=== PATIENT | male | born 1930 | race Caucasian/White ===

== ENCOUNTER 2016-11-28 01:08 | Inpatient (IN) | payer MEDICARE ==
[2016-11-28] MEDS ORDERED: SODIUM CHLORIDE 0.9% 500 ML IV STA (01:22)
[2016-11-28] MEDS ORDERED: SODIUM CHLORIDE 0.9% 1,000 ML IV STA ×2 (01:22)
[2016-11-28] MEDS ORDERED: IV VANCOMYCIN PER PHARMACY 1 EACH MISC MISCELLANE PRN (01:22)
[2016-11-28] MEDS ORDERED: ACETAMINOPHEN IV (For NPO) 1,000 MG in EMPTY BAG 1 BAG IVPB STA (01:22)
[2016-11-28] MEDS ORDERED: KETOROLAC 30 MG/ML 1 ML VIAL IVP STA (01:22)
[2016-11-28] MEDS ORDERED: PIPERACILLIN-TAZOBACTAM 3.375 GM in DEXTROSE/WATER 1 50ML.BAG IVPB STA (01:22)
[2016-11-28] MEDS ORDERED: DILTIAZEM 5 MG/ML 5 ML VIAL IVP STA (01:29)
--- NOTE | 2016-11-28 01:29 | ED ---
General Adult HPI - General Chief complaint: Fever Stated complaint: SOB Time Seen by Provider: 11/28/16 01:16 Source: patient, RN notes reviewed, old records reviewed Mode of arrival: EMS - History of Present Illness Initial comments: This is an 86-year-old male to the ER today from home. Patient's urinary disease not been feeling well. He started not feeling well last night after watching baseball game. Patient states he feels weak with shaking that he cannot stop. Patient has history of heart disease history of A. fib. Patient states he does feel like his heart is racing. No recent nausea vomiting or diarrhea no chest pain or shortness of breath. No bowel pain. No sick contacts or recent travel history. No modifying factors or symptoms. Patient' s main complaint now is the shaking that he has an sweating. - Related Data Home Medications Medication Instructions Recorded Confirmed Aspirin 81 mg PO DAILY 01/03/15 01/03/15 Calcitriol [Rocaltrol] 0.25 mg PO DAILY 01/03/15 01/04/15 Digoxin [Lanoxin] 125 mcg PO QAM 01/03/15 01/04/15 Furosemide [Lasix] 40 mg PO DAILY 01/03/15 01/04/15 Levothyroxine Sodium [Synthroid] 150 mcg PO QAM 01/03/15 01/03/15 Losartan [Cozaar] 50 mg PO QAM 01/03/15 01/03/15 Metoprolol Tartrate [Lopressor] 75 mg PO BID 01/03/15 01/04/15 Multivitamins, Thera [Multivitamin] 1 tab PO DAILY 01/03/15 01/04/15 Omeprazole [PriLOSEC] 20 mg PO QAM 01/03/15 01/03/15 Potassium Chloride [K-Tab ER] 10 meq PO DAILY 01/03/15 01/04/15 Simvastatin [Zocor] 80 mg PO HS 01/03/15 01/04/15 glipiZIDE [Glucotrol] 50 mg PO BID 01/03/15 01/04/15 Allergies Allergy/AdvReac Type Severity Reaction Status Date / Time No Known Allergies Allergy Verified 01/03/15 15:04 Review of Systems ROS Statement: Those systems with pertinent positive or pertinent negative responses have been documented in the HPI. ROS Other: All systems not noted in ROS Statement are negative. Past Medical History Past Medical History: Atrial Fibrillation, Diabetes Mellitus, GERD/Reflux, Hyperlipidemia, Hypertension, Thyroid Disorder Additional Past Medical History / Comment(s): PERIPHERAL EDEMA. History of Any Multi-Drug Resistant Organisms: None Reported Past Surgical History: Cholecystectomy, Coronary Bypass/CABG Past Anesthesia/Blood Transfusion Reactions: No Reported Reaction Past Psychological History: No Psychological Hx Reported Smoking Status: Former smoker Past Alcohol Use History: None Reported Past Drug Use History: None Reported General Exam General appearance: alert, in no apparent distress, anxious Head exam: Present: atraumatic, normocephalic, normal inspection Eye exam: Present: normal appearance, PERRL, EOMI. Absent: scleral icterus, conjunctival injection, periorbital swelling ENT exam: Present: normal exam, mucous membranes moist Neck exam: Present: normal inspection. Absent: tenderness, meningismus, lymphadenopathy Respiratory exam: Present: normal lung sounds bilaterally. Absent: respiratory distress, wheezes, rales, rhonchi, stridor Cardiovascular Exam: Present: tachycardia, irregular rhythm, normal heart sounds. Absent: systolic murmur, diastolic murmur, rubs, gallop, clicks GI/Abdominal exam: Present: soft, normal bowel sounds. Absent: distended, tenderness, guarding, rebound, rigid Extremities exam: Present: normal inspection, full ROM, normal capillary refill. Absent: tenderness, pedal edema, joint swelling, calf tenderness Back exam: Present: normal inspection Neurological exam: Present: alert, oriented X3, CN II-XII intact Psychiatric exam: Present: normal affect, normal mood Skin exam: Present: warm, dry, intact, normal color. Absent: rash Course Vital Signs 11/28/16 01:22 Temperature 101.9 F H Pulse Rate 115 H Respiratory 18 Rate Blood Pressure 120/85 O2 Sat by Pulse 97 Oximetry - Reevaluation(s) Reevaluation #1: 11/28/16 02:35 A. fib with RVR is improved with Cardizem bolus Reevaluation #2: 11/28/16 02:35 Patient does patient does feel better with symptomatic management EKG Findings - EKG Comments: EKG Findings:: EKG shows A. fib with RVR rate 112, QRS 96, QTC 444 Medical Decision Making - Medical Decision Making 86 male to the ER for evaluation regarding not feeling well, fever, rule out bacteremia, no evidence of pneumonia or UTI, no rash, at this time patient will be admitted for cardiology evaluation regarding her elevated troponin, A. fib with RVR, patient also with elevated temperature, rule out bacteremia - Lab Data Result diagrams: 11/28/16 01:35 11/28/16 01:35 Lab Results 11/28/16 11/28/16 11/28/16 Range/Units 01:35 01:35 01:35 WBC 10.7 H (3.8-10.6) k/uL RBC 2.90 L (4.30-5.90) m/uL Hgb 9.0 L (13.0-17.5) gm/dL Hct 28.7 L (39.0-53.0) % MCV 99.0 (80.0-100.0) fL MCH 31.0 (25.0-35.0) pg MCHC 31.3 (31.0-37.0) g/dL RDW 14.9 (11.5-15.5) % Plt Count 181 (150-450) k/uL Neutrophils % 89 % Lymphocytes % 5 % Monocytes % 5 % Eosinophils % 1 % Basophils % 0 % Neutrophils # 9.5 H (1.3-7.7) k/uL Lymphocytes # 0.5 L (1.0-4.8) k/uL Monocytes # 0.5 (0-1.0) k/uL Eosinophils # 0.1 (0-0.7) k/uL Basophils # 0.0 (0-0.2) k/uL Hypochromasia Slight Macrocytosis Slight PT (9.0-12.0) sec INR (<1.2) APTT (22.0-30.0) sec Sodium 140 (137-145) mmol/L Potassium 4.2 (3.5-5.1) mmol/L Chloride 103 (98-107) mmol/L Carbon Dioxide 25 (22-30) mmol/L Anion Gap 12 mmol/L BUN 26 H (9-20) mg/dL Creatinine 1.70 H (0.66-1.25) mg/dL Est GFR (MDRD) Af Amer 46 (>60 ml/min/1.73 sqM) Est GFR (MDRD) Non-Af 38 (>60 ml/min/1.73 sqM) Glucose 141 H (74-99) mg/dL Plasma Lactic Acid Nic (0.7-2.0) mmol/L Calcium 8.8 (8.4-10.2) mg/dL Phosphorus 3.5 (2.5-4.5) mg/dL Magnesium 2.0 (1.6-2.3) mg/dL Total Bilirubin 0.3 (0.2-1.3) mg/dL AST 32 (17-59) U/L ALT 38 (21-72) U/L Alkaline Phosphatase 79 (38-126) U/L Total Creatine Kinase 72 (55-170) U/L CK-MB (CK-2) 1.4 (0.0-2.4) ng/mL CK-MB (CK-2) Rel Index 1.9 Troponin I 0.038 H* (0.000-0.034) ng/mL Total Protein 6.3 (6.3-8.2) g/dL Albumin 3.6 (3.5-5.0) g/dL Urine Color Urine Appearance (Clear) Urine pH (5.0-8.0) Ur Specific [place] (1.001-1.035) Urine Protein (Negative) Urine Glucose (UA) (Negative) Urine Ketones (Negative) Urine Blood (Negative) Urine Nitrite (Negative) Urine Bilirubin (Negative) Urine Urobilinogen (<2.0) mg/dL Ur Leukocyte Esterase (Negative) 11/28/16 11/28/16 11/28/16 Range/Units 01:35 01:35 01:35 WBC (3.8-10.6) k/uL RBC (4.30-5.90) m/uL Hgb (13.0-17.5) gm/dL Hct (39.0-53.0) % MCV (80.0-100.0) fL MCH (25.0-35.0) pg MCHC (31.0-37.0) g/dL RDW (11.5-15.5) % Plt Count (150-450) k/uL Neutrophils % % Lymphocytes % % Monocytes % % Eosinophils % % Basophils % % Neutrophils # (1.3-7.7) k/uL Lymphocytes # (1.0-4.8) k/uL Monocytes # (0-1.0) k/uL Eosinophils # (0-0.7) k/uL Basophils # (0-0.2) k/uL Hypochromasia Macrocytosis PT 11.0 (9.0-12.0) sec INR 1.1 (<1.2) APTT 22.1 (22.0-30.0) sec Sodium (137-145) mmol/L Potassium (3.5-5.1) mmol/L Chloride (98-107) mmol/L Carbon Dioxide (22-30) mmol/L Anion Gap mmol/L BUN (9-20) mg/dL Creatinine (0.66-1.25) mg/dL Est GFR (MDRD) Af Amer (>60 ml/min/1.73 sqM) Est GFR (MDRD) Non-Af (>60 ml/min/1.73 sqM) Glucose (74-99) mg/dL Plasma Lactic Acid Nic 1.8 (0.7-2.0) mmol/L Calcium (8.4-10.2) mg/dL Phosphorus (2.5-4.5) mg/dL Magnesium (1.6-2.3) mg/dL Total Bilirubin (0.2-1.3) mg/dL AST (17-59) U/L ALT (21-72) U/L Alkaline Phosphatase (38-126) U/L Total Creatine Kinase (55-170) U/L CK-MB (CK-2) (0.0-2.4) ng/mL CK-MB (CK-2) Rel Index Troponin I (0.000-0.034) ng/mL Total Protein (6.3-8.2) g/dL Albumin (3.5-5.0) g/dL Urine Color Yellow Urine Appearance Clear (Clear) Urine pH 5.0 (5.0-8.0) Ur Specific [place] 1.014 (1.001-1.035) Urine Protein Trace H (Negative) Urine Glucose (UA) Negative (Negative) Urine Ketones Negative (Negative) Urine Blood Negative (Negative) Urine Nitrite Negative (Negative) Urine Bilirubin Negative (Negative) Urine Urobilinogen <2.0 (<2.0) mg/dL Ur Leukocyte Esterase Negative (Negative) - Radiology Data Radiology results: report reviewed (Chest x-ray negative for acute disease), image reviewed Disposition Clinical Impression: Fever, Atrial fibrillation with RVR, Weakness, Elevated troponin Disposition: ADMITTED IP TO THIS HOSP Condition: Good Referrals: Adrianna Grubbs MD [Primary Care Provider] - 1-2 days
[2016-11-28 01:48] LABS: Basophils % (A) 0 %; CH 30.8; CHCM 31.2; Eosinophils # (A) 0.1 k/uL (0-0.7); Eosinophils % (A) 1 %; HCT 28.7 % (39.0-53.0); HDW 2.72; Hypochromasia Slight; Luc % (Auto) 1; Lymphocytes # (A) 0.5 k/uL (1.0-4.8); Lymphocytes % (A) 5 %; MCHC 31.3 g/dL (31.0-37.0); Macrocytosis Slight; Mean Platelet Volume 6.9; Monocytes # (A) 0.5 k/uL (0-1.0); Monocytes % (A) 5 %; Neutrophils # (A) 9.5 k/uL (1.3-7.7); Neutrophils % (A) 89 %; RDW 14.9 % (11.5-15.5); WBC 10.7 k/uL (3.8-10.6); WBC (Perox) 10.76
[2016-11-28 01:49] LABS: Appearance,Urine Clear (Clear); Bilirubin,Urine Negative (Negative); Glucose,Urine (UA) Negative (Negative); Ketones,Urine Negative (Negative); Leukocyte Esterase,Urine Negative (Negative); Nitrite,Urine Negative (Negative); Protein,Urine Trace (Negative); Specific Gravity,Urine 1.014 (1.001-1.035); UA Billing (MACRO vs. MICRO) CHEM; Urobilinogen,Urine <2.0 mg/dL (<2.0)
[2016-11-28 01:59] LABS: Calcium 8.8 mg/dL (8.4-10.2); Phosphorous 3.5 mg/dL (2.5-4.5); Potassium 4.2 mmol/L (3.5-5.1); Total Bilirubin 0.3 mg/dL (0.2-1.3); Total Protein 6.3 g/dL (6.3-8.2)
[2016-11-28 02:03] LABS: INR 1.1 (<1.2)
[2016-11-28 02:07] LABS: Partial Thromboplastin Time 22.1 sec (22.0-30.0)
--- NOTE | 2016-11-28 02:14 | XR ---
EXAM: XR Chest, 2 Views CLINICAL HISTORY: Reason: Weakness TECHNIQUE: Frontal and lateral views of the chest. COMPARISON: No relevant prior studies available. FINDINGS: Lungs: Elevated hemidiaphragm. The lungs are hypoventilatory. No focal consolidation. Pleural space: Unremarkable. No pneumothorax. Heart: Mild enlargement of the cardiomediastinal silhouette. Mediastinum: Postoperative mediastinum. Bones/joints: No acute osseous abnormality. Tubes, lines and devices: Telemetry leads overlie the patient. IMPRESSION: No acute cardiopulmonary process.
[2016-11-28 02:24] LABS: Creatine Kinase MB 1.4 ng/mL (0.0-2.4)
[2016-11-28 02:25] LABS: Troponin I 0.038 ng/mL (0.000-0.034)
[2016-11-28] MEDS ORDERED: ASPIRIN 81 MG CHEW PO STA (02:31)
[2016-11-28] MEDS ORDERED: LEVOFLOXACIN 750MG-D5W PMX 750 MG in DEXTROSE/WATER 1 150ML.BAG IVPB STA (02:31)
[2016-11-28] MEDS ORDERED: NITROGLYCERIN SL TABS 0.4 MG TAB SUBLINGUAL PRN (02:31)
[2016-11-28] MEDS ORDERED: IBUPROFEN 600 MG TAB PO PRN (02:33)
[2016-11-28] MEDS ORDERED: ACETAMINOPHEN TAB 500 MG TAB PO PRN (02:33)
[2016-11-28] MEDS: ASPIRIN 325 MG TAB PO SCH ×2 (08:30→08:31)
[2016-11-28 08:53] LABS: Creatine Kinase MB 1.1 ng/mL (0.0-2.4)
[2016-11-28 08:59] LABS: Troponin I 0.051 ng/mL (0.000-0.034)
--- NOTE | 2016-11-28 09:40 | P.CRDCN ---
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 The patient was experiencing shaking movement in his upper extremities. He did not have any symptoms of chest pain or chest discomfort. He did not have any symptoms of shortness of breath. No dizziness or lightheadedness. No heart racing or fluttering. No syncope. The patient was diagnosed with UTI and he was started on antibiotic. Hemodynamically, he is in atrial fibrillation with slightly uncontrolled heart rate with an average heart rate around 100 beats per minutes. He is on metoprolol at 75 mg by mouth twice a day at home. He is not on any anticoagulation but he is on antiplatelet. The EKG showed A. fib without any significant ST or T-wave abnormalities. The cardiac enzymes were checked and came in to be slightly abnormal. Past Medical History Past Medical History: Atrial Fibrillation, Diabetes Mellitus, GERD/Reflux, Hyperlipidemia, Hypertension, Thyroid Disorder Additional Past Medical History / Comment(s): PERIPHERAL EDEMA. History of Any Multi-Drug Resistant Organisms: None Reported Past Surgical History: Cholecystectomy, Coronary Bypass/CABG Past Anesthesia/Blood Transfusion Reactions: No Reported Reaction Past Psychological History: No Psychological Hx Reported Smoking Status: Former smoker Past Alcohol Use History: None Reported Past Drug Use History: None Reported Medications and Allergies Home Medications Medication Instructions Recorded Confirmed Type Aspirin 81 mg PO DAILY 01/03/15 11/28/16 History Calcitriol [Rocaltrol] 0.25 mg PO DAILY 01/03/15 11/28/16 History Digoxin [Lanoxin] 125 mcg PO QAM 01/03/15 11/28/16 History Furosemide [Lasix] 80 mg PO DAILY 01/03/15 11/28/16 History Levothyroxine Sodium [Synthroid] 150 mcg PO QAM 01/03/15 11/28/16 History Losartan [Cozaar] 50 mg PO QAM 01/03/15 11/28/16 History Metoprolol Tartrate [Lopressor] 75 mg PO BID 01/03/15 11/28/16 History Multivitamins, Thera [Multivitamin] 1 tab PO DAILY 01/03/15 11/28/16 History Omeprazole [PriLOSEC] 20 mg PO DAILY 01/03/15 11/28/16 History Potassium Chloride [K-Tab ER] 10 meq PO BID 01/03/15 11/28/16 History Simvastatin [Zocor] 40 mg PO HS 01/03/15 11/28/16 History glipiZIDE [Glucotrol] 5 mg PO AC-LUNCH 01/03/15 11/28/16 History Cholecalciferol [Vitamin D3] 1,000 unit PO DAILY 11/28/16 11/28/16 History Cyanocobalamin (Vitamin B-12) 1,000 mcg PO DAILY 11/28/16 11/28/16 History [Vitamin B-12] Ferrous Sulfate [Iron] 325 mg PO DAILY 11/28/16 11/28/16 History Fexofenadine HCl [Heidi Allergy] 180 mg PO DAILY PRN 11/28/16 11/28/16 History Allergies Allergy/AdvReac Type Severity Reaction Status Date / Time No Known Allergies Allergy Verified 11/28/16 07:35 Physical Exam Vitals: Vital Signs Temp Pulse Resp BP Pulse Ox 11/28/16 08:00 99 18 125/74 97 11/28/16 06:17 98.8 F 100 18 112/60 98 11/28/16 04:39 98.7 F 93 18 112/57 96 11/28/16 03:43 100.8 F H 97 18 110/57 97 11/28/16 01:22 101.9 F H 115 H 18 120/85 97 Intake and Output 11/27/16 11/28/16 11/28/16 22:59 06:59 14:59 Other: Weight 107.501 kg - Constitutional General appearance: no acute distress - Respiratory Respiratory: bilateral: CTA - Cardiovascular Rhythm: irregularly irregular Heart sounds: normal: S1, S2 Results 11/28/16 01:35 11/28/16 01:35 Cardiac Enzymes 11/28/16 11/28/16 11/28/16 Range/Units 01:35 01:35 07:20 AST 32 (17-59) U/L CK-MB (CK-2) 1.4 1.1 (0.0-2.4) ng/mL Troponin I 0.038 H* 0.051 H* (0.000-0.034) ng/mL Coagulation 11/28/16 Range/Units 01:35 PT 11.0 (9.0-12.0) sec APTT 22.1 (22.0-30.0) sec CBC 11/28/16 Range/Units 01:35 WBC 10.7 H (3.8-10.6) k/uL RBC 2.90 L (4.30-5.90) m/uL Hgb 9.0 L (13.0-17.5) gm/dL Hct 28.7 L (39.0-53.0) % Plt Count 181 (150-450) k/uL Comprehensive Metabolic Panel 11/28/16 Range/Units 01:35 Sodium 140 (137-145) mmol/L Potassium 4.2 (3.5-5.1) mmol/L Chloride 103 (98-107) mmol/L Carbon Dioxide 25 (22-30) mmol/L BUN 26 H (9-20) mg/dL Creatinine 1.70 H (0.66-1.25) mg/dL Glucose 141 H (74-99) mg/dL Calcium 8.8 (8.4-10.2) mg/dL AST 32 (17-59) U/L ALT 38 (21-72) U/L Alkaline Phosphatase 79 (38-126) U/L Total Protein 6.3 (6.3-8.2) g/dL Albumin 3.6 (3.5-5.0) g/dL Current Medications Generic Name Dose Route Start Last Admin Trade Name Freq PRN Reason Stop Dose Admin Acetaminophen 500 mg 11/28/16 02:33 Tylenol Tab PO Q6HR PRN Fever and/ or Pain Aspirin 325 mg 11/29/16 09:00 11/28/16 08:31 Aspirin PO 325 mg DAILY SCARLET Administration Sodium Chloride 1,000 mls @ 100 mls/hr 11/28/16 01:22 11/28/16 01:43 Saline 0.9% IV 11/28/16 11:21 100 mls/hr .Q10H STA Administration Levofloxacin 750 mg/ IV 150 mls @ 100 mls/hr 11/29/16 09:00 11/28/16 08:15 Solution IVPB 100 mls/hr DAILY SCARLET Administration Ibuprofen 600 mg 11/28/16 02:33 Motrin PO TID PRN Fever - Alternate with Tylenol Nitroglycerin 0.4 mg 11/28/16 02:31 Nitrostat SUBLINGUAL Q5M PRN Chest Pain Intake and Output 11/27/16 11/28/16 11/28/16 22:59 06:59 14:59 Other: Weight 107.501 kg 11/28/16 01:35 11/28/16 01:35 Assessment and Plan Plan: This is a pleasant 86-year-old gentleman with known CAD, chronic A. fib, hypertension, and dyslipidemia presented to the hospital because he was not feeling well and he was diagnosed with UTI and was started on antibiotic. Currently the patient is in A. fib with a slightly uncontrolled heart rate which is likely secondary to the UTI. We will continue the current medical treatment and resume the metoprolol as well as digoxin for heart rate control. I will obtain an echocardiogram was Doppler and if he has known valvular abnormalities I will consider starting the patient on one of the new or anticoagulation agents. The patient is an 86-year- old but he has a good functional capacity and when I talked to him he stated that he has relatively speaking steady gait and he does not fall frequently. We will continue following up with the patient and thank you for allowing us participate in his care
[2016-11-28] MEDS: CALCITRIOL 0.25 MCG CAP PO SCH (10:59)
[2016-11-28] MEDS: DIGOXIN 125 MCG TAB PO SCH (10:59)
[2016-11-28] MEDS: FUROSEMIDE 80 MG TAB PO SCH (10:59)
[2016-11-28] MEDS: CYANOCOBALAMIN 500 MCG TAB PO SCH (11:00)
[2016-11-28] MEDS: glipiZIDE 5 MG TAB PO SCH (11:00)
[2016-11-28] MEDS: CHOLECALCIFEROL 1,000 UNIT TAB PO SCH (11:00)
[2016-11-28] MEDS: LOSARTAN 50 MG TAB PO SCH (11:00)
[2016-11-28] MEDS: POTASSIUM CHLORIDE ER 10 MEQ TAB.ER.PRT PO SCH ×2 (11:00→21:16)
[2016-11-28] MEDS: METOPROLOL TARTRATE 25 MG TAB PO SCH ×2 (11:00→21:17)
[2016-11-28] MEDS: FERROUS SULFATE 325 MG TAB PO SCH (11:00)
[2016-11-28] MEDS ORDERED: Potassium Replacement Protocol 1 EACH MISC MISCELLANE PRN (12:26)
[2016-11-28] MEDS ORDERED: Magnesium Replacement Protocol 1 EACH MISC MISCELLANE PRN (12:26)
--- NOTE | 2016-11-28 13:02 | P.HPIM ---
History of Present Illness H&P Date: 11/28/16 Chief Complaint: not feeling well this is a 86-year-old gentleman with past medical history noted below who presented to the emergency roomwith generalized fatigue and not feeling well. Patient said that his symptoms started 2 days ago and last night he started having chills and was feeling cold. Patient denies any significant cough or shortness of breath. No dysuria or urinary frequency more than his usual which he attributes to Lasix use. He is otherwise having normal bowel movements. No diarrhea. He admits to have some runny nose for the past couple of days. He was evaluated in the emergency room was found to have a low-grade fever of 100.8. He was also found to be in atrial fibrillation with a heart rate up to the 100. He was hemodynamically stable. He was noted to have slightly elevated troponin and is currently admitted to subjective care. 12 leads EKG showed no acute ischemic changes. Patient denies any chest pain. Review of Systems Review of system: 14 points review of systems were obtained and were negative except to what were mentioned in the HPI. 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 History of Any Multi-Drug Resistant Organisms: None Reported Past Surgical History: Cholecystectomy, Coronary Bypass/CABG Additional Past Surgical History / Comment(s): PTCA, 2004 CABG 5 VESSEL, EGDs/ COLONOSCOPIES, BILATERAL CATARACT REMOVAL WITH LENS, R KNEE ARTHROSCOPY, L VAT/ DECORTICATION, THYROIDECTOMY, SKIN GRAFT TO L HAND R/T NONHEALING WOUND, SKIN CANCER REMOVAL FROM EARS, UNDESCENDED TESTICLE SX. Past Anesthesia/Blood Transfusion Reactions: No Reported Reaction Additional Past Anesthesia/Blood Transfusion Reaction / Comment(s): PT HAS RECEIVED BLOOD IN PAST WITHOUT REACTION. Smoking Status: Former smoker - Past Family History Father Family Medical History: No Reported History Additional Family Medical History / Comment(s): FATHER AT THE AGE OF 102YRS. Mother Additional Family Medical History / Comment(s): MOTHER HAD HEART PROBLEMS. SHE AT THE AGE OF 95YRS. Medications and Allergies Home Medications Medication Instructions Recorded Confirmed Type Aspirin 81 mg PO DAILY 01/03/15 11/28/16 History Calcitriol [Rocaltrol] 0.25 mg PO DAILY 01/03/15 11/28/16 History Digoxin [Lanoxin] 125 mcg PO QAM 01/03/15 11/28/16 History Furosemide [Lasix] 80 mg PO DAILY 01/03/15 11/28/16 History Levothyroxine Sodium [Synthroid] 150 mcg PO QAM 01/03/15 11/28/16 History Losartan [Cozaar] 50 mg PO QAM 01/03/15 11/28/16 History Metoprolol Tartrate [Lopressor] 75 mg PO BID 01/03/15 11/28/16 History Multivitamins, Thera [Multivitamin] 1 tab PO DAILY 01/03/15 11/28/16 History Omeprazole [PriLOSEC] 20 mg PO DAILY 01/03/15 11/28/16 History Potassium Chloride [K-Tab ER] 10 meq PO BID 01/03/15 11/28/16 History Simvastatin [Zocor] 40 mg PO HS 01/03/15 11/28/16 History glipiZIDE [Glucotrol] 5 mg PO AC-LUNCH 01/03/15 11/28/16 History Cholecalciferol [Vitamin D3] 1,000 unit PO DAILY 11/28/16 11/28/16 History Cyanocobalamin (Vitamin B-12) 1,000 mcg PO DAILY 11/28/16 11/28/16 History [Vitamin B-12] Ferrous Sulfate [Iron] 325 mg PO DAILY 11/28/16 11/28/16 History Fexofenadine HCl [Heidi Allergy] 180 mg PO DAILY PRN 11/28/16 11/28/16 History Allergies Allergy/AdvReac Type Severity Reaction Status Date / Time No Known Allergies Allergy Verified 11/28/16 07:35 Physical Exam Vitals: Vital Signs Temp Pulse Resp BP Pulse Ox 11/28/16 12:33 97.5 F L 11/28/16 12:00 74 20 103/62 97 11/28/16 08:00 99 18 125/74 97 11/28/16 06:17 98.8 F 100 18 112/60 98 08/09/17 04:39 98.7 F 93 18 112/57 96 11/28/16 03:43 100.8 F H 97 18 110/57 97 11/28/16 01:22 101.9 F H 115 H 18 120/85 97 Intake and Output 11/27/16 11/28/16 11/28/16 22:59 06:59 14:59 Other: Weight 107.501 kg General: The patient is awake and alert, in no distress Eye: there is normal conjunctiva bilaterally. Neck: The neck is supple, there is no JVD. Cardiovascular: Normal S1-S2, no S3-S4, no murmurs. Respiratory: Lungs clear to auscultation bilaterally Gastrointestinal: Abdomen is soft, nontender Musculoskeletal: There is +1-2 pedal edema. Neurological:. Speech is normal. Skin: Skin is warm and dry Results CBC & Chem 7: 11/28/16 01:35 11/28/16 01:35 Labs: Abnormal Lab Results - Last 24 Hours (Table) 11/28/16 11/28/16 11/28/16 Range/Units 01:35 01:35 01:35 WBC 10.7 H (3.8-10.6) k/uL RBC 2.90 L (4.30-5.90) m/uL Hgb 9.0 L (13.0-17.5) gm/dL Hct 28.7 L (39.0-53.0) % Neutrophils # 9.5 H (1.3-7.7) k/uL Lymphocytes # 0.5 L (1.0-4.8) k/uL BUN 26 H (9-20) mg/dL Creatinine 1.70 H (0.66-1.25) mg/dL Glucose 141 H (74-99) mg/dL Troponin I 0.038 H* (0.000-0.034) ng/mL Urine Protein (Negative) 11/28/16 11/28/16 Range/Units 01:35 07:20 WBC (3.8-10.6) k/uL RBC (4.30-5.90) m/uL Hgb (13.0-17.5) gm/dL Hct (39.0-53.0) % Neutrophils # (1.3-7.7) k/uL Lymphocytes # (1.0-4.8) k/uL BUN (9-20) mg/dL Creatinine (0.66-1.25) mg/dL Glucose (74-99) mg/dL Troponin I 0.051 H* (0.000-0.034) ng/mL Urine Protein Trace H (Negative) Microbiology - Last 24 Hours (Table) 11/28/16 01:35 Urine Culture - Preliminary Urine,Clean Catch Thrombosis Risk Factor Assmnt - Choose All That Apply Any of the Below Risk Factors Present?: Yes Each Factor Represents 1 point: Obesity (BMI >25) Other Risk Factors: Yes Each Risk Factor Represents 3 Points: Age 75 years or older Other congenital or acquired thrombophilia - If yes, enter type in comment: No Thrombosis Risk Factor Assessment Total Risk Factor Score: 4 Thrombosis Risk Factor Assessment Level: Moderate Risk Assessment and Plan Plan: 1. Acute viral upper respiratory tract infection 2. Sepsis on presentation: May be attributed to #1. There is no evidence of UTI on urinalysis. Chest x-ray with no evidence of pneumonia. No other source of infection identified. We'll continue to monitor closely. Patient received IV fluid hydration overnight. We'll discontinue and encourage oral hydration. 3. Atrial fibrillation with heart rate not well controlled on presentation up to 100 4. History of coronary artery disease with history of CABG in 2003 5. Essential hypertension: Blood pressure well-controlled 6. Mixed hyperlipidemia Today, I reviewed his medication list on lansoprazole. Continue current regimen. Continue IV antibiotic for now awaiting blood cultures. Monitor temperature closely. Patient was also seen by cardiology, appreciate recommendations. Plan to obtain echocardiogram of the heart. Also discussing options for anticoagulation.
[2016-11-28 14:37] LABS: Troponin I 0.046 ng/mL (0.000-0.034)
[2016-11-28] MEDS: ATORVASTATIN 40 MG TAB PO SCH (21:17)
[2016-11-29 05:55] LABS: Basophils % (A) 0 %; CH 30.3; CHCM 30.4; Eosinophils # (A) 0.1 k/uL (0-0.7); Eosinophils % (A) 2 %; HCT 25.6 % (39.0-53.0); HDW 2.79; HGB 7.7 gm/dL (13.0-17.5); Hypochromasia Marked; Luc # (Auto) 0.19; Luc % (Auto) 3; Lymphocytes % (A) 17 %; MCH 30.2 pg (25.0-35.0); MCHC 30.2 g/dL (31.0-37.0); MCV 100.1 fL (80.0-100.0); Macrocytosis Slight; Mean Platelet Volume 6.8; Monocytes # (A) 0.3 k/uL (0-1.0); Monocytes % (A) 5 %; Neutrophils # (A) 4.3 k/uL (1.3-7.7); Neutrophils % (A) 72 %; RBC 2.56 m/uL (4.30-5.90); RDW 14.6 % (11.5-15.5); WBC 5.9 k/uL (3.8-10.6); WBC (Perox) 6.15
[2016-11-29 05:59] LABS: Calcium 8.5 mg/dL (8.4-10.2); Magnesium 2.1 mg/dL (1.6-2.3); Potassium 3.9 mmol/L (3.5-5.1)
[2016-11-29] MEDS: LEVOTHYROXINE 75 MCG TAB PO SCH (06:16)
--- NOTE | 2016-11-29 07:46 | ECHOF ---
Referral Reason: MEASUREMENTS -------- HEIGHT: 182.9 cm WEIGHT: 107.5 kg BP: 125/74 RVIDd: 3.6 cm (< 3.3) IVSd: 1.5 cm (0.6 - 1.1) LVIDd: 5.6 cm (3.9 - 5.3) LVPWd: 1.5 cm (0.6 - 1.1) IVSs: 1.7 cm LVIDs: 4.2 cm LVPWs: 2.2 cm LA Diam: 4.4 cm (2.7 - 3.8) LAESV Index (A-L): 64.58 ml/m Ao Diam: 3.6 cm (2.0 - 3.7) AV Cusp: 1.9 cm (1.5 - 2.6) MV EXCURSION: 18.807 mm (> 18.000) MV EF SLOPE: 85 mm/s (70 - 150) EPSS: 1.1 cm AV maxP.16 mmHg AV meanP.09 mmHg RAP: 5.00 mmHg RVSP: 34.87 mmHg FINDINGS -------- Atrial fibrillation. This was a technically good study. The left ventricular size is normal. There is moderate concentric left ventricular hypertrophy. Overall left ventricular systolic function is mild-moderately impaired with, an EF between 40 - 45 %. The right ventricle is mildly enlarged. LA is severely dilated >40 ml/m2 The right atrium is normal in size. There is mild to moderate aortic valve sclerosis. There is mild aortic stenosis present. Peak/mean gradient across the Aortic Valve is 19.16mmHg / 10.09mmHg. The mitral valve leaflets are mildly thickened. Mild mitral annular calcification present. There is trace to mild mitral regurgitation. Mild tricuspid regurgitation present. There is mild pulmonary hypertension. The right ventricular systolic pressure, as measured by Doppler, is 34.87mmHg. Trace/mild (physiologic) pulmonic regurgitation. The aortic root size is normal. The inferior vena cava is mildly dilated. There is no pericardial effusion. CONCLUSIONS -------- 1. Atrial fibrillation. 2. There is mild aortic stenosis present. 3. Peak/mean gradient across the Aortic Valve is 19.16mmHg / 10.09mmHg. 4. The mitral valve leaflets are mildly thickened. 5. Mild mitral annular calcification present. 6. There is trace to mild mitral regurgitation. 7. Mild tricuspid regurgitation present. 8. There is mild pulmonary hypertension. 9. The right ventricular systolic pressure, as measured by Doppler, is 34.87mmHg. 10. Trace/mild (physiologic) pulmonic regurgitation. 11. The aortic root size is normal. 12. This was a technically good study. 13. The inferior vena cava is mildly dilated. 14. There is no pericardial effusion. 15. The left ventricular size is normal. 16. There is moderate concentric left ventricular hypertrophy. 17. Overall left ventricular systolic function is mild-moderately impaired with, an EF between 40 - 45 %. 18. The right ventricle is mildly enlarged. 19. LA is severely dilated >40 ml/m2 20. The right atrium is normal in size. 21. There is mild to moderate aortic valve sclerosis. ROCK BREAKER: Cesia Mena RDCS
[2016-11-29] MEDS: FUROSEMIDE 80 MG TAB PO SCH (08:33)
[2016-11-29] MEDS: METOPROLOL TARTRATE 25 MG TAB PO SCH ×2 (08:33→21:31)
[2016-11-29] MEDS: DIGOXIN 125 MCG TAB PO SCH (08:33)
[2016-11-29] MEDS: LOSARTAN 50 MG TAB PO SCH (08:34)
[2016-11-29] MEDS: CALCITRIOL 0.25 MCG CAP PO SCH (08:34)
[2016-11-29] MEDS: CHOLECALCIFEROL 1,000 UNIT TAB PO SCH (08:36)
[2016-11-29] MEDS: CYANOCOBALAMIN 500 MCG TAB PO SCH (08:36)
[2016-11-29] MEDS: FERROUS SULFATE 325 MG TAB PO SCH (08:37)
[2016-11-29] MEDS: POTASSIUM CHLORIDE ER 10 MEQ TAB.ER.PRT PO SCH ×2 (08:40→21:31)
[2016-11-29] MEDS ORDERED: LEVOFLOXACIN 750MG-D5W PMX 750 MG in DEXTROSE/WATER 1 150ML.BAG IVPB SCH (09:00)
[2016-11-29] MEDS: glipiZIDE 5 MG TAB PO SCH (11:09)
[2016-11-29 12:31] LABS: Hemoglobin A1C 5.8 % (4.2-6.1)
--- NOTE | 2016-11-29 13:58 | P.PN ---
Subjective Principal diagnosis: Moisés molina This is a pleasant 86-year-old gentleman with known history of coronary artery disease and prior bypass surgery, chronic persistent atrial fibrillation, hypertension, hyperlipidemia, who presented to the hospital in general symptoms of not feeling well. He is currently being treated for a UTI with antibiotics. Cardiology consultation was initially requested because of atrial fibrillation with rapid ventricular response. Patient continues to be in atrial fibrillation today, his heart rate is in the 80s. He is currently on IV heparin. Echocardiogram with Doppler study was performed which revealed an ejection fraction of 40-45%. Patient states that he used to take Coumadin in the past, significant stomach issues with it and it was discontinued. He has not had any workup in the form of EGD or colonoscopy in greater than 5 years. Blood pressure this morning 128/70, heart rate in the 80s. Hemoglobin 7.7 today , down from 9.0, potassium 3.9, BUN 25, creatinine 1.5. Troponins 0.038, 0.051 , 0.046. TSH 1.91. Objective - Vital Signs Vital signs: Vital Signs Temp 96.9 F L 11/29/16 12:00 Pulse 80 11/29/16 12:00 Resp 16 11/29/16 12:00 BP 129/72 11/29/16 12:00 Pulse Ox 94 L 11/29/16 12:00 Intake & Output 11/28/16 11/29/16 11/29/16 18:59 06:59 18:59 Intake Total 336 200 200 Output Total 900 350 Balance 336 -700 -150 Weight 103.6 kg Intake: Intake, IV Titration 100 Amount Sodium Chloride 0.9% 1, 100 000 ml @ 100 mls/hr IV . Q10H STA Rx#:[id number] Oral 236 200 200 Output: Urine 900 350 Other: Voiding Method Urinal # Voids 1 - Exam PHYSICAL EXAMINATION: HEENT: Head is atraumatic, normocephalic. Pupils equal, round. Neck is supple. There is no elevated jugular venous pressure. HEART EXAMINATION: Heart S1 and S2 irregularly irregular CHEST EXAMINATION: Lungs are clear to auscultation and precussion. No chest wall tenderness is noted on palpation or with deep breathing. ABDOMEN: Soft, nontender. Bowel sounds are heard. No organomegaly noted. EXTREMITIES: 2+ peripheral pulses with no evidence of peripheral edema and no calf tenderness noted. NEUROLOGIC patient is awake, alert and oriented -3. . - Labs CBC & Chem 7: 11/29/16 05:22 11/29/16 05:22 Labs: Abnormal Lab Results - Last 24 Hours (Table) 11/28/16 11/29/16 11/29/16 Range/Units 13:48 05:22 05:22 RBC 2.56 L (4.30-5.90) m/uL Hgb 7.7 L (13.0-17.5) gm/dL Hct 25.6 L (39.0-53.0) % MCV 100.1 H (80.0-100.0) fL MCHC 30.2 L (31.0-37.0) g/dL Plt Count 130 L (150-450) k/uL BUN 25 H (9-20) mg/dL Creatinine 1.50 H (0.66-1.25) mg/dL Glucose 116 H (74-99) mg/dL Troponin I 0.046 H* (0.000-0.034) ng/mL HDL Cholesterol 27 L (40-60) mg/dL Microbiology - Last 24 Hours (Table) 11/28/16 01:35 Urine Culture - Final Urine,Clean Catch 11/28/16 01:35 Blood Culture - Preliminary Blood No Growth after 24 hours Assessment and Plan (1) UTI (urinary tract infection) Status: Acute (2) HTN (hypertension) Status: Acute (3) Hyperlipemia Status: Acute (4) Anemia Status: Acute (5) Atrial fibrillation with RVR Status: Acute (6) Elevated troponin Status: Acute Plan: From cardiology's perspective, we will continue beta ugo as well as Lanoxin. Decrease aspirin to 81 mg daily. Patient has been educated regarding the importance of anticoagulation for stroke prevention. We will look into coverage for Eliquis, we would also recommend a GI evaluation for clearance to initiate anticoagulation. Further recommendations to follow. DNP note has been reviewed, I agree with a documented findings and plan of care. Patient was seen and examined.
[2016-11-29 16:04] VITALS: RESP 18
[2016-11-29 20:30] LABS: % Iron Saturation 5.5 % (20-50)
[2016-11-29] MEDS: ATORVASTATIN 40 MG TAB PO SCH (21:30)
[2016-11-30] MEDS: LEVOTHYROXINE 75 MCG TAB PO SCH (05:53)
[2016-11-30 06:01] LABS: Basophils % (A) 1 %; CH 30.8; CHCM 30.7; Eosinophils # (A) 0.1 k/uL (0-0.7); Eosinophils % (A) 3 %; HDW 2.78; HGB 8.2 gm/dL (13.0-17.5); Hypochromasia Moderate; Luc # (Auto) 0.17; Luc % (Auto) 3; Lymphocytes % (A) 21 %; MCH 31.7 pg (25.0-35.0); MCHC 31.4 g/dL (31.0-37.0); Macrocytosis Slight; Mean Platelet Volume 7.5; Monocytes # (A) 0.3 k/uL (0-1.0); Monocytes % (A) 6 %; Neutrophils # (A) 3.3 k/uL (1.3-7.7); Neutrophils % (A) 66 %; RBC 2.58 m/uL (4.30-5.90); WBC (Perox) 5.47
[2016-11-30 06:13] LABS: Calcium 8.5 mg/dL (8.4-10.2); Potassium 3.5 mmol/L (3.5-5.1)
[2016-11-30] MEDS ORDERED: LEVOFLOXACIN 750MG-D5W PMX 750 MG in DEXTROSE/WATER 1 150ML.BAG IVPB SCH (09:00)
[2016-11-30] MEDS: LOSARTAN 50 MG TAB PO SCH (09:03)
[2016-11-30] MEDS: DIGOXIN 125 MCG TAB PO SCH (09:03)
[2016-11-30] MEDS: CALCITRIOL 0.25 MCG CAP PO SCH (09:03)
[2016-11-30] MEDS: POTASSIUM CHLORIDE ER 10 MEQ TAB.ER.PRT PO SCH ×2 (09:03→20:24)
[2016-11-30] MEDS: FUROSEMIDE 80 MG TAB PO SCH (09:03)
[2016-11-30] MEDS: METOPROLOL TARTRATE 25 MG TAB PO SCH ×2 (09:03→20:23)
[2016-11-30] MEDS: CHOLECALCIFEROL 1,000 UNIT TAB PO SCH (11:48)
[2016-11-30] MEDS: glipiZIDE 5 MG TAB PO SCH (11:48)
[2016-11-30] MEDS: CYANOCOBALAMIN 500 MCG TAB PO SCH (11:48)
[2016-11-30] MEDS: FERROUS SULFATE 325 MG TAB PO SCH (11:48)
[2016-11-30 12:10] LABS: Glucose,Whole Blood 136 mg/dL (75-99)
--- NOTE | 2016-11-30 14:13 | P.PN ---
Subjective Principal diagnosis: Moisés molina This is a pleasant 86-year-old gentleman with known history of coronary artery disease and prior bypass surgery, chronic persistent atrial fibrillation, hypertension, hyperlipidemia, who presented to the hospital in general symptoms of not feeling well. He is currently being treated for a UTI with antibiotics. Cardiology consultation was initially requested because of atrial fibrillation with rapid ventricular response. Patient continues to be in atrial fibrillation today, his heart rate is in the 80s. He is currently on IV heparin. Echocardiogram with Doppler study was performed which revealed an ejection fraction of 40-45%. Patient states that he used to take Coumadin in the past, significant stomach issues with it and it was discontinued. He has not had any workup in the form of EGD or colonoscopy in greater than 5 years. Blood pressure this morning 128/70, heart rate in the 80s. Hemoglobin 7.7 today , down from 9.0, potassium 3.9, BUN 25, creatinine 1.5. Troponins 0.038, 0.051 , 0.046. TSH 1.91. 11/30/2016 Patient seen and examined this morning, overall feeling well. We have consulted GI service, are awaiting their referral. Hemoglobin today 8.2 patient complaining of some pain on the outer aspect of his foot. Overall he is feeling well. He does have some peripheral edema trace to 1+ bilaterally to his lower extremities Objective - Vital Signs Vital signs: Vital Signs Temp 97.1 F L 11/30/16 11:56 Pulse 79 11/30/16 11:56 Resp 18 11/30/16 11:56 BP 133/84 11/30/16 11:56 Pulse Ox 96 11/30/16 11:56 Intake & Output 11/29/16 11/30/16 11/30/16 18:59 06:59 18:59 Intake Total 550 310 180 Output Total 1550 1500 300 Balance -1000 -1190 -120 Weight 102.1 kg Intake: IV 10 0.9 10 Oral 550 300 180 Output: Urine 1550 1500 300 Other: Voiding Method Urinal Urinal # Voids 1 - Exam PHYSICAL EXAMINATION: HEENT: Head is atraumatic, normocephalic. Pupils equal, round. Neck is supple. There is no elevated jugular venous pressure. HEART EXAMINATION: Heart S1 and S2 irregularly irregular CHEST EXAMINATION: Lungs are clear to auscultation and precussion. No chest wall tenderness is noted on palpation or with deep breathing. ABDOMEN: Soft, nontender. Bowel sounds are heard. No organomegaly noted. EXTREMITIES: 2+ peripheral pulses with trace to 1+ evidence of peripheral edema and no calf tenderness noted. NEUROLOGIC patient is awake, alert and oriented -3. . - Labs CBC & Chem 7: 11/30/16 05:27 11/30/16 05:27 Labs: Abnormal Lab Results - Last 24 Hours (Table) 11/29/16 11/30/16 11/30/16 Range/Units 05:22 05:27 05:27 RBC 2.58 L (4.30-5.90) m/uL Hgb 8.2 L (13.0-17.5) gm/dL Hct 26.0 L (39.0-53.0) % MCV 101.0 H (80.0-100.0) fL Plt Count 146 L (150-450) k/uL BUN 29 H (9-20) mg/dL Creatinine 1.50 H (0.66-1.25) mg/dL Glucose 110 H (74-99) mg/dL POC Glucose (mg/dL) (75-99) mg/dL Iron 17 L (49-181) ug/dL % Saturation 5.5 L (20-50) % 11/30/16 Range/Units 11:36 RBC (4.30-5.90) m/uL Hgb (13.0-17.5) gm/dL Hct (39.0-53.0) % MCV (80.0-100.0) fL Plt Count (150-450) k/uL BUN (9-20) mg/dL Creatinine (0.66-1.25) mg/dL Glucose (74-99) mg/dL POC Glucose (mg/dL) 136 H (75-99) mg/dL Iron (49-181) ug/dL % Saturation (20-50) % Microbiology - Last 24 Hours (Table) 11/28/16 01:35 Blood Culture - Preliminary Blood No Growth after 48 hours 11/28/16 01:35 Urine Culture - Final Urine,Clean Catch Assessment and Plan (1) UTI (urinary tract infection) Status: Acute (2) HTN (hypertension) Status: Acute (3) Hyperlipemia Status: Acute (4) Anemia Status: Acute (5) Atrial fibrillation with RVR Status: Acute (6) Elevated troponin Status: Acute Plan: From cardiology's perspective, we will continue beta ugo as well as Lanoxin. Await recommendations from GI service regarding initiating anticoagulation. We will initiate anticoagulation in the form of Eliquis 2-1/2 mg one tablet by mouth twice a day. Continue other medications. DNP note has been reviewed, I agree with a documented findings and plan of care. Patient was seen and examined.
[2016-11-30] MEDS: METHYL SALICYLATE/MENTHOL CREAM 5 OZ TOPICAL PRN ×2 (16:13→21:56)
[2016-11-30] MEDS: ATORVASTATIN 40 MG TAB PO SCH (20:24)
[2016-11-30] MEDS: APIXABAN 2.5 MG TABLET PO SCH (20:24)
[2016-11-30 21:00] LABS: Glucose,Whole Blood 220 mg/dL (75-99)
[2016-12-01 05:32] LABS: Glucose,Whole Blood 112 mg/dL (75-99)
[2016-12-01] MEDS: LEVOTHYROXINE 75 MCG TAB PO SCH (05:51)
[2016-12-01 06:13] LABS: Hypochromasia Moderate; Luc # (Auto) 0.23; Macrocytosis Slight; Mean Platelet Volume 7.5
[2016-12-01 06:19] LABS: Basophils % (A) 1 %; CHCM 30.9; Eosinophils # (A) 0.2 k/uL (0-0.7); Eosinophils % (A) 3 %; HCT 27.3 % (39.0-53.0); HDW 2.87; HGB 8.4 gm/dL (13.0-17.5); Luc % (Auto) 4; Lymphocytes # (A) 1.1 k/uL (1.0-4.8); Lymphocytes % (A) 20 %; MCH 30.9 pg (25.0-35.0); MCHC 30.6 g/dL (31.0-37.0); MCV 100.8 fL (80.0-100.0); Monocytes # (A) 0.4 k/uL (0-1.0); Monocytes % (A) 7 %; Neutrophils # (A) 3.7 k/uL (1.3-7.7); Neutrophils % (A) 65 %; RDW 14.9 % (11.5-15.5); WBC 5.6 k/uL (3.8-10.6); WBC (Perox) 5.94
[2016-12-01 06:21] LABS: Calcium 8.1 mg/dL (8.4-10.2); Potassium 3.4 mmol/L (3.5-5.1)
[2016-12-01] MEDS: METOPROLOL TARTRATE 25 MG TAB PO SCH (08:53)
[2016-12-01] MEDS: FUROSEMIDE 80 MG TAB PO SCH (08:53)
[2016-12-01] MEDS: CALCITRIOL 0.25 MCG CAP PO SCH (08:53)
[2016-12-01] MEDS: APIXABAN 2.5 MG TABLET PO SCH (08:53)
[2016-12-01] MEDS: LOSARTAN 50 MG TAB PO SCH (08:53)
[2016-12-01] MEDS: POTASSIUM CHLORIDE ER 10 MEQ TAB.ER.PRT PO SCH (08:53)
[2016-12-01] MEDS: DIGOXIN 125 MCG TAB PO SCH (08:53)
[2016-12-01] MEDS ORDERED: ASPIRIN 81 MG CHEW PO SCH (09:15)
[2016-12-01] MEDS ORDERED: POTASSIUM CHLORIDE ER 10 MEQ TAB.ER.PRT PO STA (09:15)
[2016-12-01] MEDS: ASPIRIN 325 MG TAB PO SCH (09:19)
[2016-12-01] MEDS: CYANOCOBALAMIN 500 MCG TAB PO SCH (11:27)
[2016-12-01] MEDS: FERROUS SULFATE 325 MG TAB PO SCH (11:27)
[2016-12-01] MEDS: glipiZIDE 5 MG TAB PO SCH (11:27)
[2016-12-01] MEDS: CHOLECALCIFEROL 1,000 UNIT TAB PO SCH (11:27)
[2016-12-01 11:49] LABS: Glucose,Whole Blood 216 mg/dL (75-99)
[2016-12-01 12:28] VITALS: BP 118/67; PULSE 66; TEMP 96.6
--- NOTE | 2016-12-01 12:33 | P.PN ---
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 The patient was experiencing shaking movement in his upper extremities. He did not have any symptoms of chest pain or chest discomfort. He did not have any symptoms of shortness of breath. No dizziness or lightheadedness. No heart racing or fluttering. No syncope. The patient was diagnosed with UTI and he was started on antibiotic. Hemodynamically, he is in atrial fibrillation with controlled heart rate with an average heart rate around 100 beats per minutes. He denies having any chest pain or discomfort or difficulty breathing. Objective - Vital Signs Vital signs: Vital Signs Temp 96.6 F L 12/01/16 11:30 Pulse 66 12/01/16 11:30 Resp 18 12/01/16 11:30 BP 118/67 12/01/16 11:30 Pulse Ox 98 12/01/16 11:30 Intake & Output 11/30/16 12/01/16 12/01/16 18:59 06:59 18:59 Intake Total 560 Output Total 2000 700 Balance -1440 -700 Weight 100.5 kg Intake: Oral 560 Output: Urine 1999 700 Other: Voiding Method Urinal Urinal # Voids 1 - Constitutional General appearance: Present: no acute distress - Respiratory Respiratory: bilateral: CTA - Cardiovascular Rhythm: irregularly irregular Heart sounds: normal: S1, S2 Abnormal Heart Sounds: Present: systolic murmur - Labs CBC & Chem 7: 12/01/16 05:49 12/01/16 05:49 Labs: Abnormal Lab Results - Last 24 Hours (Table) 11/30/16 12/01/16 12/01/16 Range/Units 20:58 05:30 05:49 RBC 2.70 L (4.30-5.90) m/uL Hgb 8.4 L (13.0-17.5) gm/dL Hct 27.3 L (39.0-53.0) % MCV 100.8 H (80.0-100.0) fL MCHC 30.6 L (31.0-37.0) g/dL Plt Count 146 L (150-450) k/uL Potassium (3.5-5.1) mmol/L BUN (9-20) mg/dL Creatinine (0.66-1.25) mg/dL POC Glucose (mg/dL) 220 H 112 H (75-99) mg/dL Calcium (8.4-10.2) mg/dL 12/01/16 12/01/16 Range/Units 05:49 11:45 RBC (4.30-5.90) m/uL Hgb (13.0-17.5) gm/dL Hct (39.0-53.0) % MCV (80.0-100.0) fL MCHC (31.0-37.0) g/dL Plt Count (150-450) k/uL Potassium 3.4 L (3.5-5.1) mmol/L BUN 27 H (9-20) mg/dL Creatinine 1.42 H (0.66-1.25) mg/dL POC Glucose (mg/dL) 216 H (75-99) mg/dL Calcium 8.1 L (8.4-10.2) mg/dL Microbiology - Last 24 Hours (Table) 11/28/16 01:35 Blood Culture - Preliminary Blood No Growth after 72 hours Assessment and Plan Plan: This is a pleasant 86-year-old gentleman with known CAD, chronic A. fib, hypertension, and dyslipidemia presented to the hospital because he was not feeling well and he was diagnosed with UTI and was started on antibiotic. the heart rate has been controlled. The patient is on anticoagulation. From the cardiovascular standpoint overview, he can be discharged home.
--- NOTE | 2016-12-01 13:47 | PN ---
DATE OF SERVICE: 11/29/2016 SUBJECTIVE: 86-year-old white male admitted with atrial fibrillation, rapid ventricular response. Hemoglobin has dropped to 7.7. A. fib. He is going to need fci anticoagulation but we have to work him up for GI bleed prior to this. Discussed this with the patient. He also is being treated for UTI with Levaquin. VITAL SIGNS: Stable, afebrile. CARDIOVASCULAR: S1/S2. LUNGS: Clear. GI: Soft. HEMATOLOGY: Negative Homans. ASSESSMENT: 1. Urinary tract infection. 2. Atrial fibrillation with rapid ventricular response. 3. Acute on chronic anemia, unclear etiology. Gastrointestinal workup will be needed. GI consult is pending. Monitor CBC. Continue Levaquin for UTI. MTDD
--- NOTE | 2016-12-01 14:02 | PN ---
DATE OF SERVICE: 11/30/2016 SUBJECTIVE: This is an 86-year-old white male who was admitted with UTI and remains on Levaquin. GI workup is still pending. Hemoglobin is up from 7.7 yesterday up to 8.2 today. Will continue to wait and monitor for GI recommendations prior to being discharged home. All his labs were reviewed. Ejection fraction is 40 to 45% on cardiac echo. Blood pressure is 120s over 70s. Heart rate 70s to 80s. ASSESSMENT: 1. Urinary tract infection. Continue on Levaquin. 2. Hypertension, stable. 3. Dyslipidemia. 4. Anemia. Will await for GI, for anticoagulation and then will start Eliquis and discharge him home on Eliquis and Levaquin if cleared by GI. ROGER
[2016-12-02] MEDS ORDERED: LEVOFLOXACIN 750 MG TAB PO SCH (09:00)
== END 2016-12-01 14:54 | disposition home or self-care (01) | DRG 872 ==
LOC: EC 01:08 → 6SEL 02:31
PROVIDERS: ADMIT Family Medicine; ATTEND Family Medicine
DX: A41.9 Sepsis, unspecified organism (principal); I48.1 Persistent atrial fibrillation; N39.0 Urinary tract infection, site not specified; E11.9 Type 2 diabetes mellitus without complications; I10 Essential (primary) hypertension; D64.9 Anemia, unspecified; E78.2 Mixed hyperlipidemia; I48.2 Chronic atrial fibrillation; R74.8 Abnormal levels of other serum enzymes; K21.9 Gastro-esophageal reflux disease without esophagitis; R00.0 Tachycardia, unspecified; R01.1 Cardiac murmur, unspecified; K44.9 Diaphragmatic hernia without obstruction or gangrene; R60.0 Localized edema; E66.9 Obesity, unspecified; I25.10 Atherosclerotic heart disease of native coronary artery without angina pectoris; Z96.1 Presence of intraocular lens; E89.0 Postprocedural hypothyroidism; Z79.82 Long term (current) use of aspirin; Z95.1 Presence of aortocoronary bypass graft; Z79.899 Other long term (current) drug therapy; Z79.84 Long term (current) use of oral hypoglycemic drugs; Z87.891 Personal history of nicotine dependence; Z85.828 Personal history of other malignant neoplasm of skin; Z82.49 Family history of ischemic heart disease and other diseases of the circulatory system; Z87.718 Personal history of other specified (corrected) congenital malformations of genitourinary system; Z98.49 Cataract extraction status, unspecified eye; Z87.01 Personal history of pneumonia (recurrent); Z90.49 Acquired absence of other specified parts of digestive tract; Z98.61 Coronary angioplasty status; Z87.19 Personal history of other diseases of the digestive system; Z87.11 Personal history of peptic ulcer disease; Z87.09 Personal history of other diseases of the respiratory system
CPT/HCPCS: 36415; 71020; 80048; 80053; 80061; 81003; 82550; 82553; 83036; 83540; 83550; 83605; 83735; 84100; 84439; 84443; 84484; 85025; 85610; 85730; 87040; 87086; 93005; 93306; 94760; 96361; 96365; 96367; 96375; 99285

== ENCOUNTER 2017-01-02 09:00 | Inpatient (IN) | payer MEDICARE ==
[~2017-01-02 09:00] MED LIST: LACTATED RINGERS 1,000 ML IV SCH
[2017-01-02] MEDS: LACTATED RINGERS 1,000 ML IV SCH ×2 (09:59→12:56)
[2017-01-02] MEDS ORDERED: LIDOCAINE 1% 20 ML VIAL (10MG/ML) FOR IV START INTRADERMA ONE (10:00)
[2017-01-02 10:03] LABS: Glucose,Whole Blood 116 mg/dL (75-99)
[2017-01-02] MEDS ORDERED: PROPOFOL 10 MG/ML 20 ML VIAL IV ONE (10:21)
[2017-01-02] MEDS ORDERED: GLUCAGON 1 MG/ML VIAL ONE (10:21)
--- NOTE | 2017-01-02 10:28 | P.GSHP ---
History of Present Illness H&P Date: 01/02/17 Chief Complaint: GERD, GI bleed This is a 6-year-old male referred from Dr. Pj Gramajo. Patient rents today for EGD and colonoscopy. He's had issues with GERD and GI bleed. Past Medical History Past Medical History: Atrial Fibrillation, Asthma, Cancer, Diabetes Mellitus, GERD/Reflux, Hypertension, Pneumonia, Thyroid Disorder Additional Past Medical History / Comment(s): ANEMIA(gets iron infusions), VERTIGO AT TIMES, HIATAL HERNIA, swelling ortega lower legs, weakness recently, blood in stool, hx skin cancer History of Any Multi-Drug Resistant Organisms: None Reported Past Surgical History: Cholecystectomy, Coronary Bypass/CABG, Heart Catheterization, Orthopedic Surgery Additional Past Surgical History / Comment(s): PTCA, 2003 CABG 5 VESSEL, EGDs/ COLONOSCOPIES, BILATERAL CATARACT REMOVAL WITH LENS, R KNEE ARTHROSCOPY, L VAT/ DECORTICATION, THYROIDECTOMY, SKIN GRAFT TO L HAND R/T NONHEALING WOUND, SKIN CANCER REMOVAL FROM EARS, UNDESCENDED TESTICLE SX. Past Anesthesia/Blood Transfusion Reactions: No Reported Reaction Additional Past Anesthesia/Blood Transfusion Reaction / Comment(s): PT HAS RECEIVED BLOOD IN PAST WITHOUT REACTION. Smoking Status: Former smoker - Past Family History Father Family Medical History: No Reported History Additional Family Medical History / Comment(s): FATHER AT THE AGE OF 102YRS. Mother Family Medical History: No Reported History Additional Family Medical History / Comment(s): MOTHER HAD HEART PROBLEMS. SHE AT THE AGE OF 95YRS. Medications and Allergies Home Medications Medication Instructions Recorded Confirmed Type Calcitriol [Rocaltrol] 0.25 mg PO DAILY 01/03/15 12/31/16 History Digoxin [Lanoxin] 125 mcg PO QAM 01/03/15 01/02/17 History Furosemide [Lasix] 40 mg PO DAILY 01/03/15 01/02/17 History Levothyroxine Sodium [Synthroid] 150 mcg PO QAM 01/03/15 01/02/17 History Losartan [Cozaar] 50 mg PO QAM 01/03/15 01/02/17 History Metoprolol Tartrate [Lopressor] 50 mg PO BID 01/03/15 01/02/17 History Multivitamins, Thera [Multivitamin] 1 tab PO DAILY 01/03/15 01/02/17 History Potassium Chloride [K-Tab ER] 10 meq PO QAM 01/03/15 01/02/17 History Simvastatin [Zocor] 40 mg PO HS 01/03/15 01/02/17 History glipiZIDE [Glucotrol] 5 mg PO AC-LUNCH 01/03/15 01/02/17 History Cholecalciferol [Vitamin D3] 1,000 unit PO DAILY 11/28/16 01/02/17 History Cyanocobalamin (Vitamin B-12) 1,000 mcg PO DAILY 11/28/16 01/02/17 History [Vitamin B-12] Apixaban [Eliquis] 2.5 mg PO BID #60 tab 12/01/16 01/02/17 Rx Allergies Allergy/AdvReac Type Severity Reaction Status Date / Time No Known Allergies Allergy Verified 01/02/17 09:47 Surgical - Exam Vital Signs Temp Pulse Resp BP Pulse Ox 97.2 F L 100 16 161/98 98 01/02/17 09:40 01/02/17 09:40 01/02/17 09:40 01/02/17 09:40 01/02/17 09:40 - General well developed, no distress - Eyes PERRL - ENT normal pinna - Neck no masses - Respiratory normal expansion - Cardiovascular Rhythm: regular - Abdomen Abdomen: soft, non tender Results - Labs Abnormal Lab Results - Last 24 Hours (Table) 01/02/17 Range/Units 09:59 POC Glucose (mg/dL) 116 H (75-99) mg/dL Assessment and Plan Plan: GERD, GI bleed. We'll perform EGD and colonoscopy.
[2017-01-02 12:10] LABS: Anisocytosis Slight; Basophils % (A) 1 %; CH 30.8; CHCM 30.5; Eosinophils # (A) 0.1 k/uL (0-0.7); Eosinophils % (A) 1 %; HCT 26.7 % (39.0-53.0); HDW 2.88; HGB 7.9 gm/dL (13.0-17.5); Hypochromasia Marked; Luc # (Auto) 0.11; Luc % (Auto) 2; Lymphocytes # (A) 1.1 k/uL (1.0-4.8); Lymphocytes % (A) 17 %; MCH 30.2 pg (25.0-35.0); MCHC 29.6 g/dL (31.0-37.0); MCV 101.8 fL (80.0-100.0); Macrocytosis Moderate; Mean Platelet Volume 7.9; Monocytes # (A) 0.3 k/uL (0-1.0); Monocytes % (A) 4 %; Neutrophils # (A) 4.8 k/uL (1.3-7.7); Neutrophils % (A) 76 %; RBC 2.62 m/uL (4.30-5.90); RDW 17.1 % (11.5-15.5); WBC 6.4 k/uL (3.8-10.6)
[2017-01-02 12:22] LABS: ALT 31 U/L (21-72); AST 23 U/L (17-59); Alkaline Phosphatase 72 U/L (38-126); Anion Gap 8 mmol/L; Blood Urea Nitrogen 14 mg/dL (9-20); Calcium 8.3 mg/dL (8.4-10.2); Carbon Dioxide 28 mmol/L (22-30); Chloride 104 mmol/L (98-107); Glucose 142 mg/dL (74-99); Non-African American GFR(MDRD) 57 (>60 ml/min/1.73 sqM); Potassium 3.5 mmol/L (3.5-5.1); Sodium 140 mmol/L (137-145); Total Bilirubin 0.3 mg/dL (0.2-1.3); Total Protein 5.8 g/dL (6.3-8.2)
[2017-01-02 12:23] LABS: INR 1.1 (<1.2); Prothrombin Time 11.4 sec (9.0-12.0)
[2017-01-02 12:35] LABS: Partial Thromboplastin Time 22.2 sec (22.0-30.0)
[2017-01-02 13:07] LABS: Glucose,Whole Blood 125 mg/dL (75-99)
[2017-01-02] MEDS ORDERED: ROCURONIUM BROMIDE 10 MG/ML 10 ML VIAL IV ONE (13:22)
[2017-01-02] MEDS ORDERED: NEOSTIGMINE 1 MG/ML 10 ML VIAL ONE (13:22)
[2017-01-02] MEDS ORDERED: fentaNYL (PF) 50 MCG/ML 2 ML AMP ONE (13:22)
[2017-01-02] MEDS ORDERED: ETOMIDATE 2 MG/ML 10 ML VIAL ONE (13:22)
[2017-01-02] MEDS ORDERED: SUCCINYLCHOLINE CHLORIDE 100 MG/5 ML SYR IV ONE (13:22)
[2017-01-02] MEDS ORDERED: GLYCOPYRROLATE 0.2 MG/ML 2 ML VIAL ONE (13:22)
[2017-01-02] MEDS ORDERED: HEPARIN SODIUM,PORCINE 5,000 UNIT/ML 1 ML VIAL SQ ONE (13:26)
--- NOTE | 2017-01-02 13:27 | P.GSHP ---
History of Present Illness H&P Date: 01/02/17 Chief Complaint: Right colon mass This is a 86-year-old male who underwent colonoscopy this morning. Patient was found have a bleeding obstructing right colon mass. He presents today for right colectomy. Patient states that over the last 2 months he has had trouble with crampy abdominal pain he has had decreased bowel movements last week. He' s also had significant rectal bleeding. On his colonoscopy today he is found have a right colon mass. The. The quite large and the colonoscope 90 passed beyond the mass. The mass was friable and bleeding. - Constitutional Constitutional: Reports as per HPI Past Medical History Past Medical History: Atrial Fibrillation, Asthma, Cancer, Diabetes Mellitus, GERD/Reflux, Hypertension, Pneumonia, Thyroid Disorder Additional Past Medical History / Comment(s): ANEMIA(gets iron infusions), VERTIGO AT TIMES, HIATAL HERNIA, swelling ortega lower legs, weakness recently, blood in stool, hx skin cancer History of Any Multi-Drug Resistant Organisms: None Reported Past Surgical History: Cholecystectomy, Coronary Bypass/CABG, Heart Catheterization, Orthopedic Surgery Additional Past Surgical History / Comment(s): PTCA, 2004 CABG 5 VESSEL, EGDs/ COLONOSCOPIES, BILATERAL CATARACT REMOVAL WITH LENS, R KNEE ARTHROSCOPY, L VAT/ DECORTICATION, THYROIDECTOMY, SKIN GRAFT TO L HAND R/T NONHEALING WOUND, SKIN CANCER REMOVAL FROM EARS, UNDESCENDED TESTICLE SX. Past Anesthesia/Blood Transfusion Reactions: No Reported Reaction Additional Past Anesthesia/Blood Transfusion Reaction / Comment(s): PT HAS RECEIVED BLOOD IN PAST WITHOUT REACTION. Smoking Status: Former smoker - Past Family History Father Family Medical History: No Reported History Additional Family Medical History / Comment(s): FATHER AT THE AGE OF 102YRS. Mother Family Medical History: No Reported History Additional Family Medical History / Comment(s): MOTHER HAD HEART PROBLEMS. SHE AT THE AGE OF 95YRS. Medications and Allergies Home Medications Medication Instructions Recorded Confirmed Type Calcitriol [Rocaltrol] 0.25 mg PO DAILY 01/03/15 12/31/16 History Digoxin [Lanoxin] 125 mcg PO QAM 01/03/15 01/02/17 History Furosemide [Lasix] 40 mg PO DAILY 01/03/15 01/02/17 History Levothyroxine Sodium [Synthroid] 150 mcg PO QAM 01/03/15 01/02/17 History Losartan [Cozaar] 50 mg PO QAM 01/03/15 01/02/17 History Metoprolol Tartrate [Lopressor] 50 mg PO BID 01/03/15 01/02/17 History Multivitamins, Thera [Multivitamin] 1 tab PO DAILY 01/03/15 01/02/17 History Potassium Chloride [K-Tab ER] 10 meq PO QAM 01/03/15 01/02/17 History Simvastatin [Zocor] 40 mg PO HS 01/03/15 01/02/17 History glipiZIDE [Glucotrol] 5 mg PO AC-LUNCH 01/03/15 01/02/17 History Cholecalciferol [Vitamin D3] 1,000 unit PO DAILY 11/28/16 01/02/17 History Cyanocobalamin (Vitamin B-12) 1,000 mcg PO DAILY 11/28/16 01/02/17 History [Vitamin B-12] Apixaban [Eliquis] 2.5 mg PO BID #60 tab 12/01/16 01/02/17 Rx Allergies Allergy/AdvReac Type Severity Reaction Status Date / Time No Known Allergies Allergy Verified 01/02/17 09:47 Surgical - Exam Vital Signs Temp Pulse Resp BP Pulse Ox 97.2 F L 100 16 161/98 98 01/02/17 09:40 01/02/17 09:40 01/02/17 09:40 01/02/17 09:40 01/02/17 09:40 - General no distress, cachectic, chronically ill - Eyes PERRL - ENT normal pinna - Neck no masses - Respiratory normal expansion - Cardiovascular Rhythm: regular - Abdomen Abdomen: soft, non tender Results - Labs 01/02/17 11:55 01/02/17 11:55 Abnormal Lab Results - Last 24 Hours (Table) 01/02/17 01/02/17 01/02/17 Range/Units 09:59 11:55 11:55 RBC 2.62 L (4.30-5.90) m/uL Hgb 7.9 L (13.0-17.5) gm/dL Hct 26.7 L (39.0-53.0) % MCV 101.8 H (80.0-100.0) fL MCHC 29.6 L (31.0-37.0) g/dL RDW 17.1 H (11.5-15.5) % Glucose 142 H (74-99) mg/dL POC Glucose (mg/dL) 116 H (75-99) mg/dL Calcium 8.3 L (8.4-10.2) mg/dL Total Protein 5.8 L (6.3-8.2) g/dL Albumin 3.2 L (3.5-5.0) g/dL 01/02/17 Range/Units 13:06 RBC (4.30-5.90) m/uL Hgb (13.0-17.5) gm/dL Hct (39.0-53.0) % MCV (80.0-100.0) fL MCHC (31.0-37.0) g/dL RDW (11.5-15.5) % Glucose (74-99) mg/dL POC Glucose (mg/dL) 125 H (75-99) mg/dL Calcium (8.4-10.2) mg/dL Total Protein (6.3-8.2) g/dL Albumin (3.5-5.0) g/dL Diabetes panel 01/02/17 Range/Units 11:55 Sodium 140 (137-145) mmol/L Potassium 3.5 (3.5-5.1) mmol/L Chloride 104 (98-107) mmol/L Carbon Dioxide 28 (22-30) mmol/L BUN 14 (9-20) mg/dL Creatinine 1.20 (0.66-1.25) mg/dL Glucose 142 H (74-99) mg/dL Calcium 8.3 L (8.4-10.2) mg/dL AST 23 (17-59) U/L ALT 31 (21-72) U/L Alkaline Phosphatase 72 (38-126) U/L Total Protein 5.8 L (6.3-8.2) g/dL Albumin 3.2 L (3.5-5.0) g/dL Calcium panel 01/02/17 Range/Units 11:55 Calcium 8.3 L (8.4-10.2) mg/dL Albumin 3.2 L (3.5-5.0) g/dL Pituitary panel 01/02/17 Range/Units 11:55 Sodium 140 (137-145) mmol/L Potassium 3.5 (3.5-5.1) mmol/L Chloride 104 (98-107) mmol/L Carbon Dioxide 28 (22-30) mmol/L BUN 14 (9-20) mg/dL Creatinine 1.20 (0.66-1.25) mg/dL Glucose 142 H (74-99) mg/dL Calcium 8.3 L (8.4-10.2) mg/dL Adrenal panel 01/02/17 Range/Units 11:55 Sodium 140 (137-145) mmol/L Potassium 3.5 (3.5-5.1) mmol/L Chloride 104 (98-107) mmol/L Carbon Dioxide 28 (22-30) mmol/L BUN 14 (9-20) mg/dL Creatinine 1.20 (0.66-1.25) mg/dL Glucose 142 H (74-99) mg/dL Calcium 8.3 L (8.4-10.2) mg/dL Total Bilirubin 0.3 (0.2-1.3) mg/dL AST 23 (17-59) U/L ALT 31 (21-72) U/L Alkaline Phosphatase 72 (38-126) U/L Total Protein 5.8 L (6.3-8.2) g/dL Albumin 3.2 L (3.5-5.0) g/dL Assessment and Plan Plan: Obstructing right colon mass. Patient will undergo right colectomy today.
[2017-01-02] MEDS ORDERED: SODIUM CHLORIDE 0.9% 50 ML with ceFAZolin 2,000 MG IV ONE ×2 (13:35)
[2017-01-02] MEDS ORDERED: ONDANSETRON 4 MG/2 ML VIAL IVP ONE (13:39)
[2017-01-02] MEDS ORDERED: LACTATED RINGERS 1,000 ML IV ONE ×2 (13:42)
[2017-01-02] MEDS ORDERED: SODIUM CHLORIDE 0.9% 500 ML IV ONE (14:44)
[2017-01-02] MEDS ORDERED: ONDANSETRON 4 MG/2 ML VIAL IVP PRN (15:13)
[2017-01-02] MEDS ORDERED: BENZOCAINE/MENTHOL LOZENG 1 EACH LOZENGE MUCOUS MEM PRN (15:13)
[2017-01-02] MEDS ORDERED: METOCLOPRAMIDE 5 MG/ML 2 ML VIAL IVP PRN (15:13)
--- NOTE | 2017-01-02 15:28 | P.OP ---
Date of Procedure: 01/02/17 Preoperative Diagnosis: Right colon mass Postoperative Diagnosis: Right colon mass Ventral hernia Procedure(s) Performed: Right colectomy Partial omentectomy Repair of ventral hernia Anesthesia: LAURA Surgeon: Jose De Jesus Moody Estimated Blood Loss (ml): 100 Pathology: other (Right colon, omentum greater) Condition: stable Disposition: PACU Indications for Procedure: This is an 86-year-old male who underwent colonoscopy today for GI bleed. He is found have a large obstructing right colon cancer which is bleeding. Description of Procedure: The patient's placed the operative table in the supine position. He received general anesthesia. His abdomen was prepped and draped usual sterile fashion. The abdomen was entered through midline incision. Upon entering the abdomen the colon was examined. There was a large 10 cm mass of the right colon just distal to the ileocecal valve. At this point the white line of Toldt was divided. The right colon was mobilized medially. At the liver adhesions were lysed using the LigaSure device. Next the terminal ileum was transected with a GI stapler. And the proximal transverse colon was dissected with a GI stapler. Using the LigaSure device the mesentery the bowel was divided. The right colic artery was I gated with 0 silk ties. The specimen was sent to pathology. A [id number] functional end-to-end staple anastomosis created using the DIDI and TA staplers. A 3-0 GI silk suture was used as a crotch stitch. A portion of the greater omentum was then LigaSure device. And sent to pathology. At this point the abdomen was irrigated. There is no plane seen. The liver was palpated this appeared normal. The incision was closed with looped #1 PDS suture. The skin was closed with jatin. Opti-Flow dressing was applied. Patient was sent to recovery in stable condition.
[2017-01-02] MEDS ORDERED: FUROSEMIDE 10 MG/ML 2 ML VIAL IVP ONE (15:37)
[2017-01-02] MEDS: MORPHINE SULFATE 4 MG/ML SYRINGE IVP ONE ×2 (15:44→15:56)
[2017-01-02 16:07] LABS: Glucose,Whole Blood 159 mg/dL (75-99)
[2017-01-02 16:39] LABS: Glucose,Whole Blood 161 mg/dL (75-99)
[2017-01-02] MEDS: D5-0.45% NACL WITH KCL 20MEQ/L 1,000 ML IV SCH (16:59)
[2017-01-02] MEDS: HYDROmorphone 1 MG/ML 1 ML SYRINGE IVP PRN (18:33)
[2017-01-02 19:30] LABS: Anisocytosis Slight; CH 29.7; CHCM 30.4; HCT 31.8 % (39.0-53.0); HDW 3.55; Hypochromasia Marked; MCH 30.4 pg (25.0-35.0); MCHC 30.8 g/dL (31.0-37.0); MCV 98.7 fL (80.0-100.0); Macrocytosis Slight; Mean Platelet Volume 6.8; Poikilocytosis Slight; RBC 3.22 m/uL (4.30-5.90); RDW 17.3 % (11.5-15.5); WBC 7.6 k/uL (3.8-10.6)
[2017-01-02 19:36] LABS: HGB 9.8 gm/dL (13.0-17.5)
[2017-01-02] MEDS: ATORVASTATIN 20 MG TAB PO SCH (20:01)
[2017-01-02] MEDS: METOPROLOL TARTRATE 50 MG TAB PO SCH (20:01)
[2017-01-02] MEDS: FAMOTIDINE 20 MG/2 ML VIAL IV SCH (20:01)
[2017-01-02] MEDS: INSULIN LISPRO (humaLOG) 300 UNIT/3 ML VIAL SQ SCH (20:56)
[2017-01-02] MEDS: hydrALAZINE HCL 20 MG/ML 1 ML VIAL IVP PRN (22:25)
[2017-01-02] MEDS: HEPARIN SODIUM,PORCINE 5,000 UNIT/ML 1 ML VIAL SQ SCH (23:10)
[2017-01-02 23:21] LABS: Glucose,Whole Blood 204 mg/dL (75-99)
[2017-01-03] MEDS: D5-0.45% NACL WITH KCL 20MEQ/L 1,000 ML IV SCH ×3 (01:00→17:59)
[2017-01-03] MEDS: HYDROmorphone 1 MG/ML 1 ML SYRINGE IVP PRN ×3 (01:28→14:12)
[2017-01-03 05:13] LABS: Anisocytosis Slight; Basophils % (A) 0 %; CH 29.8; CHCM 30.1; Eosinophils # (A) 0.1 k/uL (0-0.7); Eosinophils % (A) 1 %; HDW 3.78; HGB 10.4 gm/dL (13.0-17.5); Hypochromasia Marked; Luc % (Auto) 1; Lymphocytes # (A) 0.8 k/uL (1.0-4.8); Lymphocytes % (A) 12 %; MCH 30.8 pg (25.0-35.0); MCHC 30.7 g/dL (31.0-37.0); MCV 100.2 fL (80.0-100.0); Macrocytosis Slight; Mean Platelet Volume 8.8; Monocytes # (A) 0.3 k/uL (0-1.0); Monocytes % (A) 4 %; Neutrophils # (A) 5.9 k/uL (1.3-7.7); Neutrophils % (A) 82 %; Poikilocytosis Slight; RBC 3.39 m/uL (4.30-5.90); RDW 17.6 % (11.5-15.5); WBC 7.3 k/uL (3.8-10.6); WBC (Perox) 7.93
[2017-01-03 05:21] LABS: Anion Gap 8 mmol/L; Calcium 7.7 mg/dL (8.4-10.2); Carbon Dioxide 26 mmol/L (22-30); Chloride 103 mmol/L (98-107); Glucose 158 mg/dL (74-99); Non-African American GFR(MDRD) >60 (>60 ml/min/1.73 sqM); Sodium 137 mmol/L (137-145)
[2017-01-03 05:26] LABS: Blood Urea Nitrogen 12 mg/dL (9-20); Potassium 4.5 mmol/L (3.5-5.1)
[2017-01-03 06:38] LABS: Glucose,Whole Blood 162 mg/dL (75-99)
[2017-01-03] MEDS: LACTATED RINGERS 1,000 ML IV SCH (06:41)
[2017-01-03] MEDS: LEVOTHYROXINE 75 MCG TAB PO SCH (06:42)
[2017-01-03] MEDS: HEPARIN SODIUM,PORCINE 5,000 UNIT/ML 1 ML VIAL SQ SCH ×2 (08:17→16:26)
[2017-01-03] MEDS: INSULIN LISPRO (humaLOG) 300 UNIT/3 ML VIAL SQ SCH ×4 (08:20→21:20)
[2017-01-03] MEDS: CALCITRIOL 0.25 MCG CAP PO SCH (10:05)
[2017-01-03] MEDS: ALVIMOPAN 12 MG CAPSULE PO SCH ×2 (10:05→21:20)
[2017-01-03] MEDS: FUROSEMIDE 40 MG TAB PO SCH (10:06)
[2017-01-03] MEDS: FAMOTIDINE 20 MG/2 ML VIAL IV SCH ×2 (10:06→21:21)
[2017-01-03] MEDS: DIGOXIN 125 MCG TAB PO SCH (10:06)
[2017-01-03] MEDS: LOSARTAN 50 MG TAB PO SCH (10:06)
[2017-01-03] MEDS: POTASSIUM CHLORIDE ER 10 MEQ TAB.ER.PRT PO SCH (10:07)
[2017-01-03 12:32] LABS: Glucose,Whole Blood 148 mg/dL (75-99)
[2017-01-03] MEDS: MULTIVITAMINS, THERA 1 EACH TAB PO SCH (14:13)
[2017-01-03] MEDS: METOPROLOL TARTRATE 50 MG TAB PO SCH ×2 (14:13→21:20)
[2017-01-03] MEDS: glipiZIDE 5 MG TAB PO SCH (14:13)
[2017-01-03] MEDS: CHOLECALCIFEROL 1,000 UNIT TAB PO SCH (14:14)
[2017-01-03 14:30] LABS: Hemoglobin A1C 5.1 % (4.2-6.1)
--- NOTE | 2017-01-03 15:27 | P.CNPUL ---
History of Present Illness Consult date: 01/03/17 Chief complaint: Shortness of breath, post extubation for colon mass surgery, general ICU History of present illness: This patient is a 86-year-old male who was seen and evaluated examined in the ICU patient has been having issues associated with the abdominal distention and pain which is been going on for 2-3 months patient has been lately having altered bowel habits with intermittent lower GI bleeding patient underwent a colonoscopy and found to have a large right-sided colon mass patient was eventually brought into the hospital underwent resection of mass from the right side patient was successfully weaned and extubated in the recovery area due to his age friability and history of multiple comorbidity decision was made to observe and monitor patient closely in the ICU he has been cleared by surgical services for a clear liquid diet he had some hypertension however he has been reinitiated on antihypertensive agents, IV initiated when necessary hydralazine as well as need arises data predominantly has been obtained from the chart and patient does not give a detailed history Review of Systems All systems: negative Constitutional: Reports as per HPI Eyes: denies as per HPI Ears, nose, mouth and throat: Reports as per HPI Cardiovascular: Reports as per HPI Respiratory: Reports as per HPI Gastrointestinal: Reports as per HPI Genitourinary: Reports as per HPI Musculoskeletal: Reports as per HPI Integumentary: Reports as per HPI Neurological: Reports as per HPI Psychiatric: Reports as per HPI Endocrine: Reports as per HPI Hematologic/Lymphatic: Reports as per HPI Allergic/Immunologic: Reports as per HPI Past Medical History Past Medical History: Atrial Fibrillation, Asthma, Cancer, Diabetes Mellitus, GERD/Reflux, Hypertension, Pneumonia, Thyroid Disorder Additional Past Medical History / Comment(s): ANEMIA(gets iron infusions), VERTIGO AT TIMES, HIATAL HERNIA, swelling ortega lower legs, weakness recently, blood in stool, hx skin cancer History of Any Multi-Drug Resistant Organisms: None Reported Past Surgical History: Cholecystectomy, Coronary Bypass/CABG, Heart Catheterization, Orthopedic Surgery Additional Past Surgical History / Comment(s): PTCA, 2004 CABG 5 VESSEL, EGDs/ COLONOSCOPIES, BILATERAL CATARACT REMOVAL WITH LENS, R KNEE ARTHROSCOPY, L VAT/ DECORTICATION, THYROIDECTOMY, SKIN GRAFT TO L HAND R/T NONHEALING WOUND, SKIN CANCER REMOVAL FROM EARS, UNDESCENDED TESTICLE SX. Past Anesthesia/Blood Transfusion Reactions: No Reported Reaction Additional Past Anesthesia/Blood Transfusion Reaction / Comment(s): PT HAS RECEIVED BLOOD IN PAST WITHOUT REACTION. Past Psychological History: No Psychological Hx Reported Additional Psychological History / Comment(s): . 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 Past Drug Use History: None Reported - Past Family History Father Family Medical History: No Reported History Additional Family Medical History / Comment(s): FATHER AT THE AGE OF 102YRS. Mother Family Medical History: No Reported History Additional Family Medical History / Comment(s): MOTHER HAD HEART PROBLEMS. SHE AT THE AGE OF 95YRS. Medications and Allergies Home Medications Medication Instructions Recorded Confirmed Type Calcitriol [Rocaltrol] 0.25 mcg PO DAILY 01/03/15 01/02/17 History Digoxin [Lanoxin] 125 mcg PO QAM 01/03/15 01/02/17 History Furosemide [Lasix] 40 mg PO DAILY 01/03/15 01/02/17 History Levothyroxine Sodium [Synthroid] 150 mcg PO QAM 01/03/15 01/02/17 History Losartan [Cozaar] 50 mg PO QAM 01/03/15 01/02/17 History Metoprolol Tartrate [Lopressor] 50 mg PO BID 01/03/15 01/02/17 History Multivitamins, Thera [Multivitamin] 1 tab PO DAILY 01/03/15 01/02/17 History Potassium Chloride [K-Tab ER] 10 meq PO QAM 01/03/15 01/02/17 History Simvastatin [Zocor] 40 mg PO HS 01/03/15 01/02/17 History glipiZIDE [Glucotrol] 5 mg PO AC-LUNCH 01/03/15 01/02/17 History Cholecalciferol [Vitamin D3] 1,000 unit PO DAILY 11/28/16 01/02/17 History Cyanocobalamin (Vitamin B-12) 1,000 mcg PO DAILY 11/28/16 01/02/17 History [Vitamin B-12] Apixaban [Eliquis] 2.5 mg PO BID #60 tab 12/01/16 01/02/17 Rx Allergies Allergy/AdvReac Type Severity Reaction Status Date / Time No Known Allergies Allergy Verified 01/02/17 09:47 Physical Exam Vitals: Vital Signs Temp Pulse Pulse Resp BP BP Pulse Ox 01/03/17 14:00 87 13 143/78 97 01/03/17 13:00 93 17 143/74 93 L 01/03/17 12:00 98.0 F 93 12 134/74 99 01/03/17 11:00 79 11 L 133/64 99 01/03/17 10:00 73 18 116/62 95 01/03/17 09:00 80 14 106/60 94 L 01/03/17 08:00 97.8 F 94 22 150/79 100 01/03/17 07:30 73 22 126/70 100 01/03/17 07:00 80 16 138/69 100 01/03/17 06:50 76 16 138/69 100 01/03/17 06:40 70 16 132/67 100 01/03/17 06:30 77 16 139/75 100 01/03/17 06:20 85 16 139/75 100 01/03/17 06:10 82 16 122/68 100 01/03/17 06:00 84 16 127/72 100 01/03/17 05:50 79 16 127/72 100 01/03/17 05:40 91 16 119/66 99 01/03/17 05:30 75 16 121/70 100 01/03/17 05:20 90 16 121/70 100 01/03/17 05:10 75 16 138/68 100 01/03/17 05:00 72 16 135/62 100 01/03/17 04:50 76 16 135/62 100 01/03/17 04:40 80 16 153/80 100 01/03/17 04:30 75 16 129/65 100 01/03/17 04:20 76 16 129/65 100 01/03/17 04:10 88 16 132/70 100 01/03/17 04:00 77 16 118/67 99 01/03/17 03:50 82 16 118/67 99 01/03/17 03:40 81 16 115/63 99 01/03/17 03:30 80 16 116/57 99 01/03/17 03:20 76 16 116/57 99 01/03/17 03:10 86 16 114/60 98 01/03/17 03:00 77 16 115/72 99 01/03/17 02:50 77 16 115/72 99 01/03/17 02:40 78 16 114/67 99 01/03/17 02:30 74 16 121/70 99 01/03/17 02:20 77 16 121/70 99 01/03/17 02:10 76 16 129/60 99 01/03/17 02:00 75 16 119/67 100 01/03/17 01:50 80 16 119/67 99 01/03/17 01:40 79 16 112/67 99 01/03/17 01:30 82 18 122/67 99 01/03/17 01:20 83 18 122/67 100 01/03/17 01:10 75 18 123/69 100 01/03/17 01:00 83 18 129/71 100 01/03/17 00:50 80 18 129/71 100 01/03/17 00:40 78 121/67 100 01/03/17 00:30 77 124/66 100 01/03/17 00:20 75 124/66 100 01/03/17 00:10 74 127/56 100 01/03/17 00:00 68 18 129/72 01/02/17 23:50 93 18 129/72 01/02/17 23:40 75 18 124/75 01/02/17 23:30 90 18 126/64 01/02/17 23:20 87 18 126/64 01/02/17 23:10 98 18 134/78 01/02/17 23:00 76 130/65 01/02/17 22:50 88 130/65 100 01/02/17 22:40 96 130/73 01/02/17 22:30 77 153/88 100 01/02/17 22:20 84 153/88 01/02/17 22:10 87 156/80 100 01/02/17 22:00 87 157/77 100 01/02/17 21:50 80 157/77 100 01/02/17 21:40 77 152/87 100 01/02/17 21:30 84 147/83 100 01/02/17 21:20 74 147/83 100 01/02/17 21:10 83 147/78 01/02/17 21:00 81 18 147/78 01/02/17 20:50 78 160/80 100 01/02/17 20:40 92 142/74 100 01/02/17 20:30 81 145/69 100 01/02/17 20:20 103 H 145/69 100 01/02/17 20:10 93 168/72 100 01/02/17 20:00 96.7 F L 98 147/83 100 01/02/17 19:50 94 147/83 99 01/02/17 19:40 101 H 160/85 98 01/02/17 19:30 93 146/83 97 01/02/17 19:20 96 172/103 98 01/02/17 19:10 90 148/101 94 L 01/02/17 19:00 96 144/84 98 01/02/17 18:50 92 144/84 97 01/02/17 18:40 90 149/75 01/02/17 18:30 104 H 137/76 01/02/17 18:20 98 137/76 01/02/17 18:10 82 144/70 94 L 01/02/17 18:00 90 147/85 01/02/17 17:50 85 147/85 01/02/17 17:40 97 148/84 01/02/17 17:30 97 16 158/84 01/02/17 17:20 94 158/84 100 01/02/17 17:10 97.5 F L 96 169/95 100 01/02/17 17:00 87 164/87 100 01/02/17 16:50 97 175/95 96 01/02/17 16:40 87 99 01/02/17 16:33 61 01/02/17 16:14 87 20 175/94 96 01/02/17 16:00 91 20 176/96 100 01/02/17 15:49 98.4 F 109 H 18 137/76 94 L 01/02/17 15:45 89 20 189/94 100 01/02/17 15:42 97.0 F L 176/96 100 01/02/17 15:30 106 H 18 189/110 94 L 01/02/17 15:17 97.0 F L 86 12 137/93 92 L Intake and Output 01/03/17 01/03/17 01/03/17 06:59 14:59 22:59 Intake Total 1125 1115 Output Total 395 745 Balance 730 370 Intake: IV 875 D5-0.45% NaCl with KCl 875 20Meq/l 1,000 ml @ 125 mls/hr IV .Q8H [facility] Rx#: [id number] Intake, IV Titration 1125 Amount D5-0.45% NaCl with KCl 1125 20Meq/l 1,000 ml @ 125 mls/hr IV .Q8[facility] Rx#: [id number] Oral 240 Output: Urine 395 745 Other: Voiding Method Indwelling Catheter Indwelling Catheter Weight 101.7 kg 101.7 kg Patient Weight 01/04/17 06:59 Weight 101.7 kg - Constitutional General appearance: cooperative, disheveled, morbidly obese, no acute distress - EENT Eyes: EOMI, PERRLA, poor dentition, normal appearance ENT: hard of hearing, normal oropharynx Ears: bilateral: normal - Neck Neck: normal ROM Carotids: bilateral: upstroke normal, bruit absent Thyroid: bilateral: normal size - Respiratory Respiratory: bilateral: CTA - Cardiovascular Rhythm: regular Heart sounds: normal: S1, S2 - Gastrointestinal General gastrointestinal: decreased bowel sounds - Integumentary Integumentary: calor, decreased turgor, normal - Neurologic Neurologic: CNII-XII intact - Musculoskeletal Musculoskeletal: generalized weakness, strength equal bilaterally - Psychiatric Psychiatric: A&O x's 3, appropriate affect, intact judgment & insight Results - Laboratory Findings CBC and BMP: 01/03/17 04:32 01/03/17 04:32 PT/INR, D-dimer PT 11.4 sec (9.0-12.0) 01/02/17 11:55 INR 1.1 (<1.2) 01/02/17 11:55 Abnormal lab findings: Abnormal Labs 01/02/17 01/02/17 01/02/17 09:59 11:55 11:55 RBC 2.62 L Hgb 7.9 L Hct 26.7 L MCV 101.8 H MCHC 29.6 L RDW 17.1 H Plt Count Lymphocytes # Glucose 142 H POC Glucose (mg/dL) 116 H Calcium 8.3 L Total Protein 5.8 L Albumin 3.2 L Crossmatch 01/02/17 01/02/17 01/02/17 11:55 13:06 16:03 RBC Hgb Hct MCV MCHC RDW Plt Count Lymphocytes # Glucose POC Glucose (mg/dL) 125 H 159 H Calcium Total Protein Albumin Crossmatch See Detail 01/02/17 01/02/17 01/02/17 16:35 19:15 20:06 RBC 3.22 L Hgb 9.8 L D Hct 31.8 L MCV MCHC 30.8 L RDW 17.3 H Plt Count Lymphocytes # Glucose POC Glucose (mg/dL) 161 H 204 H Calcium Total Protein Albumin Crossmatch 01/03/17 01/03/17 01/03/17 04:32 04:32 06:35 RBC 3.39 L Hgb 10.4 L Hct 34.0 L MCV 100.2 H MCHC 30.7 L RDW 17.6 H Plt Count 102 L Lymphocytes # 0.8 L Glucose 158 H POC Glucose (mg/dL) 162 H Calcium 7.7 L Total Protein Albumin Crossmatch 01/03/17 11:44 RBC Hgb Hct MCV MCHC RDW Plt Count Lymphocytes # Glucose POC Glucose (mg/dL) 148 H Calcium Total Protein Albumin Crossmatch Assessment and Plan Plan: Large right-sided colon mass, 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 Uncontrolled hypertension Chronic atrial fibrillation Type 2 diabetes mellitus history of prior pneumonia History of chronic anemia Coronary artery disease with history of prior CABG History of prior decortication and video-assisted thoracotomy We will monitor and observe closely in ICU maintain patient on DVT and peptic ulcer disease prophylaxis medications have been resumed will monitor observe the clinical response given multiple comorbidities will keep patient in ICU for now and observe him on his regular medications repeat labs have been ordered we' ll follow closely Time with Patient: Greater than 30
--- NOTE | 2017-01-03 16:01 | P.PN ---
Subjective 6-year-old male being seen in the intensive care unit this morning. is awake alert oriented 3 denies any dizziness lightheadedness no shortness of breath Patient underwent a colonoscopy on the . Was found to have a bleeding obstructive right colon mass. Patient underwent a right colectomy with repair of a ventral hernia and a partial omentectomy on January 02 Objective - Vital Signs Vital signs: Vital Signs Temp 98.0 F 01/03/17 12:00 Pulse 82 01/03/17 15:00 Resp 18 01/03/17 15:00 BP 147/78 01/03/17 15:00 Pulse Ox 93 L 01/03/17 15:00 Intake & Output 01/02/17 01/03/17 01/03/17 18:59 06:59 18:59 Intake Total 3170 1500 1240 Output Total 875 905 795 Balance 2295 595 445 Weight 100.6 kg 101.7 kg 101.7 kg Intake: IV 2300 1000 D5-0.45% NaCl with KCl 1000 20Meq/l 1,000 ml @ 125 mls/hr IV .Q8H [facility] Rx#: [id number] Intake, IV Titration 250 1500 Amount D5-0.45% NaCl with KCl 250 1500 20Meq/l 1,000 ml @ 125 mls/hr IV .Q8H [facility] Rx#: [id number] Oral 240 Blood Product 620 Rc As-1 Unit 310 [id number] Rc As-1 Unit 310 [id number] Output: Urine 775 905 795 Estimated Blood Loss 100 Other: Voiding Method Indwelling Catheter Indwelling Catheter Indwelling Catheter - Exam Physical exam 86-year-old male resting in bed appears in no acute distress does report having surgical tenderness Lungs essentially clear with adequate air movement Heart S1-S2 audible and regular Abdomen surgical dressing to the surgical site dry few hypoactive bowel tones indwelling Viveros catheter in place not distended Extremities Venodyne's on to the bilateral lower extremities no edema - Labs CBC & Chem 7: 01/03/17 04:32 01/03/17 04:32 Labs: Abnormal Lab Results - Last 24 Hours (Table) 01/02/17 01/02/17 01/02/17 Range/Units 11:55 16:03 16:35 RBC (4.30-5.90) m/uL Hgb (13.0-17.5) gm/dL Hct (39.0-53.0) % MCV (80.0-100.0) fL MCHC (31.0-37.0) g/dL RDW (11.5-15.5) % Plt Count (150-450) k/uL Lymphocytes # (1.0-4.8) k/uL Glucose (74-99) mg/dL POC Glucose (mg/dL) 159 H 161 H (75-99) mg/dL Calcium (8.4-10.2) mg/dL Crossmatch See Detail 01/02/17 01/02/17 01/03/17 Range/Units 19:15 20:06 04:32 RBC 3.22 L 3.39 L (4.30-5.90) m/uL Hgb 9.8 L D 10.4 L (13.0-17.5) gm/dL Hct 31.8 L 34.0 L (39.0-53.0) % MCV 100.2 H (80.0-100.0) fL MCHC 30.8 L 30.7 L (31.0-37.0) g/dL RDW 17.3 H 17.6 H (11.5-15.5) % Plt Count 102 L (150-450) k/uL Lymphocytes # 0.8 L (1.0-4.8) k/uL Glucose (74-99) mg/dL POC Glucose (mg/dL) 204 H (75-99) mg/dL Calcium (8.4-10.2) mg/dL Crossmatch 01/03/17 01/03/17 01/03/17 Range/Units 04:32 06:35 11:44 RBC (4.30-5.90) m/uL Hgb (13.0-17.5) gm/dL Hct (39.0-53.0) % MCV (80.0-100.0) fL MCHC (31.0-37.0) g/dL RDW (11.5-15.5) % Plt Count (150-450) k/uL Lymphocytes # (1.0-4.8) k/uL Glucose 158 H (74-99) mg/dL POC Glucose (mg/dL) 162 H 148 H (75-99) mg/dL Calcium 7.7 L (8.4-10.2) mg/dL Crossmatch Assessment and Plan Plan: Impression Present on admission acute blood loss anemia suspect due to active right colon mass bleeding lower GI bleed Status post colonoscopy for GI bleed showing evidence of a large obstructing right colon mass active bleeding Status post right colectomy, partial omentectomy repair of ventral hernia Known coronary artery disease prior coronary artery bypass grafting Plan Continue postop surgical care Continue ICU management per the outsole cutter machine Pain control Monitor labs attempt keep the hemoglobin greater than 8.5 Monitor blood pressure heart rate address as indicated DVT and GI prophylaxis Further recommendations pending will follow surgical course closely The above impression and plan of care have been discussed and directed by signing physician. Shanna Carl nurse practitioner acting as scribe for signing physician.
[2017-01-03 17:37] LABS: Glucose,Whole Blood 159 mg/dL (75-99)
[2017-01-03] MEDS: ATORVASTATIN 20 MG TAB PO SCH (21:21)
[2017-01-03 21:22] LABS: Glucose,Whole Blood 118 mg/dL (75-99)
[2017-01-03] MEDS: hydrALAZINE HCL 20 MG/ML 1 ML VIAL IVP PRN (22:06)
[2017-01-04] MEDS: D5-0.45% NACL WITH KCL 20MEQ/L 1,000 ML IV SCH ×4 (00:17→21:19)
[2017-01-04] MEDS: HEPARIN SODIUM,PORCINE 5,000 UNIT/ML 1 ML VIAL SQ SCH ×4 (00:17→23:24)
[2017-01-04] MEDS: HYDROmorphone 1 MG/ML 1 ML SYRINGE IVP PRN ×2 (01:15→06:09)
[2017-01-04 05:07] LABS: Anisocytosis Slight; Basophils % (A) 0 %; CH 29.9; CHCM 30.1; Eosinophils # (A) 0.1 k/uL (0-0.7); Eosinophils % (A) 1 %; HCT 32.4 % (39.0-53.0); HDW 3.47; HGB 9.9 gm/dL (13.0-17.5); Hypochromasia Marked; Luc # (Auto) 0.12; Luc % (Auto) 2; Lymphocytes # (A) 0.6 k/uL (1.0-4.8); Lymphocytes % (A) 9 %; MCH 30.9 pg (25.0-35.0); MCHC 30.7 g/dL (31.0-37.0); MCV 100.6 fL (80.0-100.0); Macrocytosis Slight; Mean Platelet Volume 6.7; Monocytes # (A) 0.4 k/uL (0-1.0); Monocytes % (A) 6 %; Neutrophils # (A) 6.2 k/uL (1.3-7.7); Neutrophils % (A) 83 %; Poikilocytosis Slight; RBC 3.22 m/uL (4.30-5.90); WBC 7.5 k/uL (3.8-10.6); WBC (Perox) 7.74
[2017-01-04 05:20] LABS: Anion Gap 8 mmol/L; Blood Urea Nitrogen 9 mg/dL (9-20); Calcium 7.8 mg/dL (8.4-10.2); Carbon Dioxide 24 mmol/L (22-30); Chloride 102 mmol/L (98-107); Glucose 138 mg/dL (74-99); Magnesium 1.6 mg/dL (1.6-2.3); Non-African American GFR(MDRD) >60 (>60 ml/min/1.73 sqM); Phosphorous 2.5 mg/dL (2.5-4.5); Potassium 3.5 mmol/L (3.5-5.1); Sodium 134 mmol/L (137-145)
[2017-01-04] MEDS: LACTATED RINGERS 1,000 ML IV SCH (06:00)
[2017-01-04] MEDS: LEVOTHYROXINE 75 MCG TAB PO SCH (06:09)
[2017-01-04] MEDS: MAGNESIUM SULFATE-D5W PMX 1 GM in DEXTROSE/WATER 1 100ML.BAG IVPB SCH ×2 (06:15→07:35)
[2017-01-04] MEDS: METOPROLOL TARTRATE 50 MG TAB PO SCH ×4 (06:42→19:45)
[2017-01-04] MEDS: DIGOXIN 125 MCG TAB PO SCH (06:43)
[2017-01-04] MEDS: POTASSIUM CHLORIDE 10 MEQ, LIDOCAINE 2% INJ 10 MG in SODIUM CHLORIDE 0.9% 100 ML IV SCH ×2 (07:35→09:00)
--- NOTE | 2017-01-04 08:05 | P.PN ---
Subjective Principal diagnosis: Uncontrolled hypertension with hypertensive urgency in emergency, atrial fibrillation and rapid ventricular response, cardiomyopathy and congestive heart failure with chronic diastolic heart failure, right colon mass is status post right colectomy on 01/02/2017 along with ventral hernia repair and partial omentectomy 01/04/2017, patient seen and evaluated examined in ICU he is slightly more peaceful but he has been extremely anxious and agitated unable to sleep significant sundowning effects have been seen on him with inability to fall asleep patient continued to manifest tachypnea and tachycardia as well as uncontrolled hypertension heart rate varies from 110 to 120s sometimes goes up to 140 irregular rhythm blood pressure is also running on the higher side patient has been on Lopressor 50 twice a day would recommend to increase it to 3 times a day patient has significant electrolyte imbalance which are being corrected as well patient could benefit from low-dose hold all her bedtime, given significant cardiovascular disease and significant surgery would recommend to keep patient in ICU for another 24 hours This patient is a 86-year-old male who was seen and evaluated examined in the ICU patient has been having issues associated with the abdominal distention and pain which is been going on for 2-3 months patient has been lately having altered bowel habits with intermittent lower GI bleeding patient underwent a colonoscopy and found to have a large right-sided colon mass patient was eventually brought into the hospital underwent resection of mass from the right side patient was successfully weaned and extubated in the recovery area due to his age friability and history of multiple comorbidity decision was made to observe and monitor patient closely in the ICU he has been cleared by surgical services for a clear liquid diet he had some hypertension however he has been reinitiated on antihypertensive agents, IV initiated when necessary hydralazine as well as need arises data predominantly has been obtained from the chart and patient does not give a detailed history Objective - Vital Signs Vital signs: Vital Signs Temp 98.5 F 01/04/17 00:00 Pulse 141 H 01/04/17 07:00 Resp 13 01/04/17 07:00 BP 142/76 01/04/17 07:00 Pulse Ox 89 L 01/04/17 07:00 Intake & Output 01/03/17 01/04/17 01/04/17 18:59 06:59 18:59 Intake Total 1615 1725 Output Total 938 855 Balance 678 870 Weight 101.7 kg 105.9 kg Intake: IV 1375 1625 D5-0.45% NaCl with KCl 1375 1625 20Meq/l 1,000 ml @ 125 mls/hr IV .Q8H [facility] Rx#: [id number] Oral 240 100 Output: Urine 937 855 Other: Voiding Method Indwelling Catheter Indwelling Catheter - Exam - Constitutional General appearance: cooperative, disheveled, morbidly obese, no acute distress - EENT Eyes: EOMI, PERRLA, poor dentition, normal appearance ENT: hard of hearing, normal oropharynx Ears: bilateral: normal - Neck Neck: normal ROM Carotids: bilateral: upstroke normal, bruit absent Thyroid: bilateral: normal size - Respiratory Respiratory: bilateral: CTA - Cardiovascular Rhythm: regular Heart sounds: normal: S1, S2 - Gastrointestinal General gastrointestinal: decreased bowel sounds - Integumentary Integumentary: calor, decreased turgor, normal - Neurologic Neurologic: CNII-XII intact - Musculoskeletal Musculoskeletal: generalized weakness, strength equal bilaterally - Psychiatric Psychiatric: A&O x's 2, at times appropriate affect, intact judgment & insight, however get confused at times - Labs CBC & Chem 7: 01/04/17 04:44 01/04/17 04:44 Labs: Abnormal Lab Results - Last 24 Hours (Table) 01/03/17 01/03/17 01/03/17 Range/Units 11:44 17:25 21:19 RBC (4.30-5.90) m/uL Hgb (13.0-17.5) gm/dL Hct (39.0-53.0) % MCV (80.0-100.0) fL MCHC (31.0-37.0) g/dL RDW (11.5-15.5) % Lymphocytes # (1.0-4.8) k/uL Sodium (137-145) mmol/L Glucose (74-99) mg/dL POC Glucose (mg/dL) 148 H 159 H 118 H (75-99) mg/dL Calcium (8.4-10.2) mg/dL 01/04/17 01/04/17 Range/Units 04:44 04:44 RBC 3.22 L (4.30-5.90) m/uL Hgb 9.9 L (13.0-17.5) gm/dL Hct 32.4 L (39.0-53.0) % MCV 100.6 H (80.0-100.0) fL MCHC 30.7 L (31.0-37.0) g/dL RDW 17.0 H (11.5-15.5) % Lymphocytes # 0.6 L (1.0-4.8) k/uL Sodium 134 L (137-145) mmol/L Glucose 138 H (74-99) mg/dL POC Glucose (mg/dL) (75-99) mg/dL Calcium 7.8 L (8.4-10.2) mg/dL Assessment and Plan Plan: Uncontrolled hypertension, atrial fibrillation with rapid ventricular response ICU psychosis and delirium Electrolyte imbalance related his significant hypokalemia and hyponatremia Large right-sided colon mass, 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 Uncontrolled hypertension Chronic atrial fibrillation Type 2 diabetes mellitus history of prior pneumonia History of chronic anemia Coronary artery disease with history of prior CABG History of prior decortication and video-assisted thoracotomy We will monitor and observe closely in ICU maintain patient on DVT and peptic ulcer disease prophylaxis medications have been resumed will monitor observe the clinical response given multiple comorbidities will keep patient in ICU for now and observe him on his regular medications repeat labs have been ordered we' ll follow closely, patient is being replaced with electrolytes continue gentle rehydration, we'll increase the dose of Lopressor to 50 3 times a day Will give a dose I early, patient is a is not a candidate for aggressive anticoagulation will keep DVT) prophylaxis with subcu heparin every 8 for now, we'll keep the fluid running half normal saline for now but but however if noted to have a continued decline on serum sodium would recommend to change it to normal saline probably with a lower rate 50-75 mL an hour, radical care time spent 35 minutes Time with Patient: Greater than 30
[2017-01-04] MEDS: INSULIN LISPRO (humaLOG) 300 UNIT/3 ML VIAL SQ SCH ×4 (08:40→21:19)
[2017-01-04 08:42] LABS: Glucose,Whole Blood 158 mg/dL (75-99)
[2017-01-04] MEDS: FUROSEMIDE 40 MG TAB PO SCH (08:50)
[2017-01-04] MEDS: CALCITRIOL 0.25 MCG CAP PO SCH (08:50)
[2017-01-04] MEDS: FAMOTIDINE 20 MG/2 ML VIAL IV SCH ×2 (08:50→19:44)
[2017-01-04] MEDS: POTASSIUM CHLORIDE ER 10 MEQ TAB.ER.PRT PO SCH (08:50)
[2017-01-04] MEDS: LOSARTAN 50 MG TAB PO SCH (08:50)
[2017-01-04] MEDS: ALVIMOPAN 12 MG CAPSULE PO SCH ×2 (08:50→19:43)
--- NOTE | 2017-01-04 12:01 | CONS ---
CONSULTATION CHIEF COMPLAINT: This is a white male, status post colon mass surgery in ICU for medical management consult. He has severe anemia and a recent atrial fibrillation, receiving IV iron transfusions weekly as an outpatient until his colonoscopy and EGD could be performed. He was recently admitted with atrial fibrillation. Seen by Cardiology. He is in the ICU status post colectomy after large colon polyps were found on colonoscopy and colectomy. He remained on IV hydralazine for severe hypertension in ICU. He is on a clear liquid diet. He is restarted on his antihypertensive medications fibrillation. REVIEW OF SYSTEMS: Fourteen point review of systems negative except for as mentioned in HPI. 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 SOCIAL HISTORY: He is a former smoker. No alcohol. No illicit drugs. FAMILY HISTORY: Father negative except for at the age 102 years old. Mother had heart problems at age 95. MEDICATIONS: Medications include Rocaltrol, Lanoxin, Lasix, Synthroid, Cozaar, Lopressor, multivitamins, potassium chloride, Zocor, Glucotrol, vitamin D, B12 and Eliquis. ALLERGIES: No known drug allergies. PHYSICAL EXAM: Temp 98, pulse 70s to 80s, respiratory rate 12 to 16, blood pressure 140s to 130s to 110s over 70s to 60s, O2 is 97%, 93% on room air. Vital signs as mentioned above. He can move all 4 extremities. PSYCH: He has given appropriate answers. He appears weak and lethargic. ENDOCRINE: BMI is over 30. NEUROLOGIC: Cranial nerves are intact. Integument shows decreased skin turgor. Poor mucous membranes. GI is decreased bowel sounds. Hemoglobin is 10.4, white count 7.3. Glucose mid 100s. ASSESSMENT: 1. Large right-sided colon mass, status post resection. Most likely a colon cancer. 2. Uncontrolled hypertension. 3. Chronic atrial fibrillation. 4. Type 2 diabetes mellitus. 5. Prior pneumonia. 6. History chronic anemia. 7. CABG with prior coronary artery disease. 8. Recent history atrial fibrillation. 9. Recent history of severe anemia requiring IV iron infusions. 10.Dementia, mild. Watch him in ICU. Accu-Cheks protocols will be given. Diabetes management will be controlled by myself. Hypertension medication. Dr. Dowd side seam machine operator on consult. Please see further orders. Await for pathology. MMODL / IJN: [id number] /
[2017-01-04] MEDS: glipiZIDE 5 MG TAB PO SCH (12:06)
[2017-01-04] MEDS: MULTIVITAMINS, THERA 1 EACH TAB PO SCH (12:06)
[2017-01-04] MEDS: CHOLECALCIFEROL 1,000 UNIT TAB PO SCH (12:06)
[2017-01-04 12:23] LABS: Glucose,Whole Blood 135 mg/dL (75-99)
--- NOTE | 2017-01-04 14:55 | P.PN ---
Subjective 86-year-old gentleman being seen in the intensive care unit this morning. Nursing reports patient had episode of becoming extremely confused during the night seeing things that were not there patient stated I know it was seeing cars running up and down the hallway and a lot of noise a known that they weren' t really happening" patient's pleasant cooperative but remains confused with prompting can be reoriented. Patient's denying chest pain dizziness lightheadedness or shortness of breath Patients being followed by the patient assistant in the ICU. Patient underwent a right colectomy with repair of a ventral hernia and a partial omentectomy on January 02 Objective - Vital Signs Vital signs: Vital Signs Temp 97.9 F 01/04/17 12:00 Pulse 87 01/04/17 14:00 Resp 17 01/04/17 14:00 BP 161/85 01/04/17 14:00 Pulse Ox 99 01/04/17 14:00 Intake & Output 01/03/17 01/04/17 01/04/17 18:59 06:59 18:59 Intake Total 1615 1725 1775 Output Total 918 283 2621 Balance 678 870 475 Weight 101.7 kg 105.9 kg Intake: IV 1375 1625 625 D5-0.45% NaCl with KCl 1375 1625 625 20Meq/l 1,000 ml @ 125 mls/hr IV .Q8H [facility] Rx#: [id number] Intake, IV Titration 400 Amount Magnesium Sulfate-D5w Pmx 200 1 gm In Dextrose/Water 1 100ml.bag @ 100 mls/hr IVPB Q1H [facility] Rx#: [id number] Potassium Chloride 10 meq 200 Lidocaine 2% Inj 10 mg In Sodium Chloride 0.9% 100 ml @ 100 mls/hr IV Q1H [facility] Rx#:[id number] Oral 240 100 750 Output: Urine 105 152 1365 Other: Voiding Method Indwelling Catheter Indwelling Catheter Indwelling Catheter - Exam Physical exam 86-year-old male resting in bed pleasant cooperative oriented to person and place 3 prompting can recall event Lungs essentially clear with adequate air movement Heart S1-S2 audible and regular Abdomen surgical dressing to the surgical site dry few hypoactive bowel tones indwelling Viveros catheter in place not distended Extremities Venodyne's on to the bilateral lower extremities no edema - Labs CBC & Chem 7: 01/04/17 04:44 01/04/17 04:44 Labs: Abnormal Lab Results - Last 24 Hours (Table) 01/03/17 01/03/17 01/04/17 Range/Units 17:25 21:19 04:44 RBC 3.22 L (4.30-5.90) m/uL Hgb 9.9 L (13.0-17.5) gm/dL Hct 32.4 L (39.0-53.0) % MCV 100.6 H (80.0-100.0) fL MCHC 30.7 L (31.0-37.0) g/dL RDW 17.0 H (11.5-15.5) % Lymphocytes # 0.6 L (1.0-4.8) k/uL Sodium (137-145) mmol/L Glucose (74-99) mg/dL POC Glucose (mg/dL) 159 H 118 H (75-99) mg/dL Calcium (8.4-10.2) mg/dL 01/04/17 01/04/17 01/04/17 Range/Units 04:44 08:39 12:09 RBC (4.30-5.90) m/uL Hgb (13.0-17.5) gm/dL Hct (39.0-53.0) % MCV (80.0-100.0) fL MCHC (31.0-37.0) g/dL RDW (11.5-15.5) % Lymphocytes # (1.0-4.8) k/uL Sodium 134 L (137-145) mmol/L Glucose 138 H (74-99) mg/dL POC Glucose (mg/dL) 158 H 135 H (75-99) mg/dL Calcium 7.8 L (8.4-10.2) mg/dL Assessment and Plan Plan: Impression Present on admission acute blood loss anemia suspect due to active right colon mass bleeding lower GI bleed Status post colonoscopy for GI bleed showing evidence of a large obstructing right colon mass active bleeding Status post right colectomy, partial omentectomy repair of ventral hernia Known coronary artery disease prior coronary artery bypass grafting Type 2 diabetes Chronic atrial fibrillation controlled ventricular response ICU psychosis with delirium History of decortication and video-assisted thoracotomy Plan Continue postop surgical care Continue ICU management per the patient assistant Pain control Monitor labs attempt keep the hemoglobin greater than 8.5 Monitor blood pressure heart rate address as indicated DVT and GI prophylaxis Repeat labs in the morning follow results Further recommendations pending will follow surgical course closely The above impression and plan of care have been discussed and directed by signing physician. Shanna Carl nurse practitioner acting as scribe for signing physician.
[2017-01-04 15:16] LABS: Magnesium 2.1 mg/dL (1.6-2.3); Potassium 3.9 mmol/L (3.5-5.1)
[2017-01-04 16:22] LABS: Glucose,Whole Blood 103 mg/dL (75-99)
[2017-01-04] MEDS: ATORVASTATIN 20 MG TAB PO SCH (19:44)
[2017-01-04 21:12] LABS: Glucose,Whole Blood 128 mg/dL (75-99)
[2017-01-04] MEDS: HALOPERIDOL 2 MG TAB PO PRN (22:15)
[2017-01-05] MEDS: LACTATED RINGERS 1,000 ML IV SCH (05:10)
[2017-01-05] MEDS: D5-0.45% NACL WITH KCL 20MEQ/L 1,000 ML IV SCH ×2 (05:55→20:33)
[2017-01-05] MEDS: LEVOTHYROXINE 75 MCG TAB PO SCH (06:12)
[2017-01-05] MEDS: INSULIN LISPRO (humaLOG) 300 UNIT/3 ML VIAL SQ SCH ×4 (06:13→20:40)
[2017-01-05 06:15] LABS: Glucose,Whole Blood 154 mg/dL (75-99)
[2017-01-05 06:18] LABS: Anisocytosis Slight; Basophils % (A) 0 %; CH 30.4; CHCM 31.2; Eosinophils # (A) 0.1 k/uL (0-0.7); Eosinophils % (A) 1 %; HCT 33.5 % (39.0-53.0); HDW 3.35; HGB 9.9 gm/dL (13.0-17.5); Hypochromasia Moderate; Luc # (Auto) 0.15; Luc % (Auto) 2; Lymphocytes # (A) 1.4 k/uL (1.0-4.8); Lymphocytes % (A) 17 %; MCH 29.3 pg (25.0-35.0); MCHC 29.7 g/dL (31.0-37.0); MCV 98.6 fL (80.0-100.0); Macrocytosis Slight; Mean Platelet Volume 7.5; Monocytes # (A) 0.4 k/uL (0-1.0); Monocytes % (A) 5 %; Neutrophils # (A) 5.8 k/uL (1.3-7.7); Neutrophils % (A) 75 %; RDW 16.9 % (11.5-15.5); WBC 7.8 k/uL (3.8-10.6); WBC (Perox) 8.23
[2017-01-05 06:38] LABS: Anion Gap 9 mmol/L; Blood Urea Nitrogen 8 mg/dL (9-20); Calcium 8.6 mg/dL (8.4-10.2); Carbon Dioxide 25 mmol/L (22-30); Chloride 101 mmol/L (98-107); Glucose 143 mg/dL (74-99); Non-African American GFR(MDRD) >60 (>60 ml/min/1.73 sqM); Phosphorous 2.2 mg/dL (2.5-4.5); Potassium 3.9 mmol/L (3.5-5.1); Sodium 135 mmol/L (137-145)
--- NOTE | 2017-01-05 08:08 | P.PN ---
Subjective Principal diagnosis: Uncontrolled hypertension with hypertensive urgency in emergency, atrial fibrillation and rapid ventricular response, cardiomyopathy and congestive heart failure with chronic diastolic heart failure, right colon mass is status post right colectomy on 01/02/2017 along with ventral hernia repair and partial omentectomy 01/05/2017, patient seen and evaluated examined on the floor today he is breathing comfortably awake and alert in no obvious distress presents slight less agitated and confused however patient had episodes of anxiety and a prehension late last night care plan discussed with RN at length to the hold all was not given patient is more calm and comfortable today. Given that patient's tachycardia and hypertension was better under control was moved out of the ICU predominantly related to his delirium and sundowning effect, which seems to be slightly better but is still present, his labs are reviewed borderline hyponatremia hypokalemia is present with normal renal functions he is anemic which is related to likely colon mass and bleeding associated with that however has been stable is postop day #3 01/04/2017, patient seen and evaluated examined in ICU he is slightly more peaceful but he has been extremely anxious and agitated unable to sleep significant sundowning effects have been seen on him with inability to fall asleep patient continued to manifest tachypnea and tachycardia as well as uncontrolled hypertension heart rate varies from 110 to 120s sometimes goes up to 140 irregular rhythm blood pressure is also running on the higher side patient has been on Lopressor 50 twice a day would recommend to increase it to 3 times a day patient has significant electrolyte imbalance which are being corrected as well patient could benefit from low-dose hold all her bedtime, given significant cardiovascular disease and significant surgery would recommend to keep patient in ICU for another 24 hours This patient is a 86-year-old male who was seen and evaluated examined in the ICU patient has been having issues associated with the abdominal distention and pain which is been going on for 2-3 months patient has been lately having altered bowel habits with intermittent lower GI bleeding patient underwent a colonoscopy and found to have a large right-sided colon mass patient was eventually brought into the hospital underwent resection of mass from the right side patient was successfully weaned and extubated in the recovery area due to his age friability and history of multiple comorbidity decision was made to observe and monitor patient closely in the ICU he has been cleared by surgical services for a clear liquid diet he had some hypertension however he has been reinitiated on antihypertensive agents, IV initiated when necessary hydralazine as well as need arises data predominantly has been obtained from the chart and patient does not give a detailed history Objective - Vital Signs Vital signs: Vital Signs Temp 97.0 F L 01/05/17 03:39 Pulse 96 01/05/17 03:39 Resp 18 01/05/17 03:39 BP 146/85 01/05/17 03:39 Pulse Ox 96 01/05/17 03:39 Intake & Output 01/04/17 01/05/17 01/05/17 18:59 06:59 18:59 Intake Total 2260 1150 Output Total 1300 1800 Balance 960 -650 Weight 100 kg Intake: IV 750 750 D5-0.45% NaCl with KCl 750 750 20Meq/l 1,000 ml @ 125 mls/hr IV .Q8H [facility] Rx#: [id number] Intake, IV Titration 400 Amount Magnesium Sulfate-D5w Pmx 200 1 gm In Dextrose/Water 1 100ml.bag @ 100 mls/hr IVPB Q1H [facility] Rx#: [id number] Potassium Chloride 10 meq 200 Lidocaine 2% Inj 10 mg In Sodium Chloride 0.9% 100 ml @ 100 mls/hr IV Q1H [facility] Rx#:[id number] Oral 1110 400 Output: Urine 1300 1800 Other: Voiding Method Indwelling Catheter Indwelling Catheter - Exam - Constitutional patient is sitting upright on the chair just finished his breakfast more awake and alert this morning compared to last night General appearance: cooperative, disheveled, morbidly obese, no acute distress - EENT Eyes: EOMI, PERRLA, poor dentition, normal appearance ENT: hard of hearing, normal oropharynx Ears: bilateral: normal - Neck Neck: normal ROM Carotids: bilateral: upstroke normal, bruit absent Thyroid: bilateral: normal size - Respiratory Respiratory: bilateral: CTA - Cardiovascular Rhythm: regular Heart sounds: normal: S1, S2 - Gastrointestinal General gastrointestinal: decreased bowel sounds - Integumentary Integumentary: calor, decreased turgor, normal - Neurologic Neurologic: CNII-XII intact - Musculoskeletal Musculoskeletal: generalized weakness, strength equal bilaterally - Psychiatric Psychiatric: A&O x's 2, at times appropriate affect, intact judgment & insight, however get confused at times - Labs CBC & Chem 7: 01/05/17 05:43 01/05/17 05:45 Labs: Abnormal Lab Results - Last 24 Hours (Table) 01/04/17 01/04/17 01/04/17 Range/Units 08:39 12:09 16:17 RBC (4.30-5.90) m/uL Hgb (13.0-17.5) gm/dL Hct (39.0-53.0) % MCHC (31.0-37.0) g/dL RDW (11.5-15.5) % Sodium (137-145) mmol/L BUN (9-20) mg/dL Glucose (74-99) mg/dL POC Glucose (mg/dL) 158 H 135 H 103 H (75-99) mg/dL Phosphorus (2.5-4.5) mg/dL 01/04/17 01/05/17 01/05/17 Range/Units 21:09 05:43 05:45 RBC 3.40 L (4.30-5.90) m/uL Hgb 9.9 L (13.0-17.5) gm/dL Hct 33.5 L (39.0-53.0) % MCHC 29.7 L (31.0-37.0) g/dL RDW 16.9 H (11.5-15.5) % Sodium 135 L (137-145) mmol/L BUN 8 L (9-20) mg/dL Glucose 143 H (74-99) mg/dL POC Glucose (mg/dL) 128 H (75-99) mg/dL Phosphorus 2.2 L (2.5-4.5) mg/dL 01/05/17 Range/Units 06:10 RBC (4.30-5.90) m/uL Hgb (13.0-17.5) gm/dL Hct (39.0-53.0) % MCHC (31.0-37.0) g/dL RDW (11.5-15.5) % Sodium (137-145) mmol/L BUN (9-20) mg/dL Glucose (74-99) mg/dL POC Glucose (mg/dL) 154 H (75-99) mg/dL Phosphorus (2.5-4.5) mg/dL Assessment and Plan Plan: Uncontrolled hypertension, atrial fibrillation with rapid ventricular response, better under control with current therapy Postop psychosis and delirium Electrolyte imbalance related his significant hypokalemia and hyponatremia, stable and continued to improve progressively Acute on chronic anemia related to Large right-sided colon mass, 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 Uncontrolled hypertension Chronic atrial fibrillation Type 2 diabetes mellitus history of prior pneumonia History of chronic anemia Coronary artery disease with history of prior CABG History of prior decortication and video-assisted thoracotomy We will monitor and observe closely in ICU maintain patient on DVT and peptic ulcer disease prophylaxis medications have been resumed will monitor observe the clinical response given multiple comorbidities will keep patient in ICU for now and observe him on his regular medications repeat labs have been ordered we' ll follow closely, patient is being replaced with electrolytes continue gentle rehydration, we'll increase the dose of Lopressor to 50 3 times a day Will give a dose I early, patient is a is not a candidate for aggressive anticoagulation will keep DVT) prophylaxis with subcu heparin every 8 for now, we'll keep the fluid running half normal saline for now but but however if noted to have a continued decline on serum sodium would recommend to change it to normal saline probably with a lower rate 50-75 mL an hour, Time with Patient: Greater than 30
[2017-01-05] MEDS: FAMOTIDINE 20 MG/2 ML VIAL IV SCH ×2 (08:37→20:40)
[2017-01-05] MEDS: DIGOXIN 125 MCG TAB PO SCH (08:37)
[2017-01-05] MEDS: POTASSIUM CHLORIDE ER 10 MEQ TAB.ER.PRT PO SCH (08:37)
[2017-01-05] MEDS: HEPARIN SODIUM,PORCINE 5,000 UNIT/ML 1 ML VIAL SQ SCH ×3 (08:37→23:59)
[2017-01-05] MEDS: FUROSEMIDE 40 MG TAB PO SCH (08:37)
[2017-01-05] MEDS: CALCITRIOL 0.25 MCG CAP PO SCH (08:37)
[2017-01-05] MEDS: METOPROLOL TARTRATE 50 MG TAB PO SCH ×3 (08:37→20:40)
[2017-01-05] MEDS: LOSARTAN 50 MG TAB PO SCH (08:37)
[2017-01-05] MEDS: ALVIMOPAN 12 MG CAPSULE PO SCH ×2 (08:37→20:40)
[2017-01-05 12:05] LABS: Glucose,Whole Blood 122 mg/dL (75-99)
[2017-01-05] MEDS: MULTIVITAMINS, THERA 1 EACH TAB PO SCH (12:13)
[2017-01-05] MEDS: glipiZIDE 5 MG TAB PO SCH (12:13)
[2017-01-05] MEDS: CHOLECALCIFEROL 1,000 UNIT TAB PO SCH (12:13)
--- NOTE | 2017-01-05 15:15 | P.PN ---
Subjective Principal diagnosis: Postop colon resection 01-02-17 The patient is status post right hemicolectomy. He's having some mild incisional pain. No nausea or vomiting. Tolerating clear liquids. Objective - Vital Signs Vital signs: Vital Signs Temp 96.9 F L 01/05/17 12:00 Pulse 100 01/05/17 12:00 Resp 20 01/05/17 12:00 BP 176/87 01/05/17 12:00 Pulse Ox 97 01/05/17 12:00 Intake & Output 01/04/17 01/05/17 01/05/17 18:59 06:59 18:59 Intake Total 2260 1150 1240 Output Total 1300 1800 Balance 960 -650 1240 Weight 100 kg 100 kg Intake: IV 795 055 9017 D5-0.45% NaCl with KCl 611 702 2602 20Meq/l 1,000 ml @ 125 mls/hr IV .Q8H [facility] Rx#: [id number] Intake, IV Titration 400 Amount Magnesium Sulfate-D5w Pmx 200 1 gm In Dextrose/Water 1 100ml.bag @ 100 mls/hr IVPB Q1H [facility] Rx#: [id number] Potassium Chloride 10 meq 200 Lidocaine 2% Inj 10 mg In Sodium Chloride 0.9% 100 ml @ 100 mls/hr IV Q1H [facility] Rx#:[id number] Oral 1110 400 240 Output: Urine 1300 1800 Other: Voiding Method Indwelling Catheter Indwelling Catheter Indwelling Catheter - Constitutional Constitutional Comment(s): No obvious confusion when I visited him today General appearance: Present: cooperative, no acute distress - Respiratory Respiratory: bilateral: CTA, diminished (Mildly at the bases) - Cardiovascular Rhythm: irregularly irregular - Gastrointestinal General gastrointestinal: Present: decreased bowel sounds, soft Localized gastrointestinal: surgical scar: diffuse (Dressing is intact with some old dried blood) - Labs CBC & Chem 7: 01/05/17 05:43 01/05/17 05:45 Labs: Abnormal Lab Results - Last 24 Hours (Table) 01/04/17 01/04/17 01/05/17 Range/Units 16:17 21:09 05:43 RBC 3.40 L (4.30-5.90) m/uL Hgb 9.9 L (13.0-17.5) gm/dL Hct 33.5 L (39.0-53.0) % MCHC 29.7 L (31.0-37.0) g/dL RDW 16.9 H (11.5-15.5) % Sodium (137-145) mmol/L BUN (9-20) mg/dL Glucose (74-99) mg/dL POC Glucose (mg/dL) 103 H 128 H (75-99) mg/dL Phosphorus (2.5-4.5) mg/dL 01/05/17 01/05/17 01/05/17 Range/Units 05:45 06:10 11:41 RBC (4.30-5.90) m/uL Hgb (13.0-17.5) gm/dL Hct (39.0-53.0) % MCHC (31.0-37.0) g/dL RDW (11.5-15.5) % Sodium 135 L (137-145) mmol/L BUN 8 L (9-20) mg/dL Glucose 143 H (74-99) mg/dL POC Glucose (mg/dL) 154 H 122 H (75-99) mg/dL Phosphorus 2.2 L (2.5-4.5) mg/dL Assessment and Plan (1) Colon tumor Status: Acute (2) Atrial fibrillation Status: Acute (3) Anemia Status: Acute Plan: Will advance his diet. Decrease the rate of the IV fluids. Remove the Viveros catheter. Monitor hemoglobin. Progressing slowly.
[2017-01-05 17:04] LABS: Glucose,Whole Blood 87 mg/dL (75-99)
[2017-01-05 20:40] LABS: Glucose,Whole Blood 111 mg/dL (75-99)
[2017-01-05] MEDS: ATORVASTATIN 20 MG TAB PO SCH (20:40)
[2017-01-05] MEDS: HALOPERIDOL 2 MG TAB PO PRN (20:55)
[2017-01-06] MEDS: D5-0.45% NACL WITH KCL 20MEQ/L 1,000 ML IV SCH ×3 (00:50→06:33)
[2017-01-06 06:06] LABS: ALT 33 U/L (21-72); AST 31 U/L (17-59); Alkaline Phosphatase 88 U/L (38-126); Anion Gap 6 mmol/L; Blood Urea Nitrogen 11 mg/dL (9-20); Calcium 8.5 mg/dL (8.4-10.2); Carbon Dioxide 28 mmol/L (22-30); Chloride 107 mmol/L (98-107); Glucose 113 mg/dL (74-99); Magnesium 1.9 mg/dL (1.6-2.3); Non-African American GFR(MDRD) 57 (>60 ml/min/1.73 sqM); Potassium 3.8 mmol/L (3.5-5.1); Sodium 141 mmol/L (137-145); Total Bilirubin 0.6 mg/dL (0.2-1.3); Total Protein 5.7 g/dL (6.3-8.2)
[2017-01-06 06:07] LABS: Anisocytosis Slight; Basophils % (A) 1 %; CH 30.5; Eosinophils # (A) 0.2 k/uL (0-0.7); Eosinophils % (A) 3 %; HCT 32.2 % (39.0-53.0); HDW 3.23; HGB 9.8 gm/dL (13.0-17.5); Hypochromasia Marked; Luc # (Auto) 0.15; Luc % (Auto) 3; Lymphocytes # (A) 1.3 k/uL (1.0-4.8); Lymphocytes % (A) 23 %; MCH 30.2 pg (25.0-35.0); MCHC 30.4 g/dL (31.0-37.0); MCV 99.3 fL (80.0-100.0); Macrocytosis Slight; Mean Platelet Volume 7.5; Monocytes # (A) 0.4 k/uL (0-1.0); Monocytes % (A) 7 %; Neutrophils # (A) 3.6 k/uL (1.3-7.7); Neutrophils % (A) 64 %; RBC 3.24 m/uL (4.30-5.90); RDW 16.7 % (11.5-15.5); WBC 5.7 k/uL (3.8-10.6); WBC (Perox) 5.55
[2017-01-06 06:16] LABS: Glucose,Whole Blood 113 mg/dL (75-99)
[2017-01-06] MEDS: LACTATED RINGERS 1,000 ML IV SCH (06:30)
[2017-01-06] MEDS: INSULIN LISPRO (humaLOG) 300 UNIT/3 ML VIAL SQ SCH ×4 (06:31→20:13)
[2017-01-06] MEDS: LEVOTHYROXINE 75 MCG TAB PO SCH (06:32)
--- NOTE | 2017-01-06 07:48 | PN ---
PROGRESS NOTE DATE OF SERVICE: 01/05/17 SUBJECTIVE: 86-year-old, white male, status post colectomy for colon cancer with uncontrolled hypertension, atrial fibrillation, rapid ventricular response, cardiomyopathy, congestive heart failure, diastolic heart failure, ventral hernia repair, partial omentectomy. The patient has been transferred out of ICU for 2 days now. He is feeling a bit better, less lethargic he states. Temperature 97, pulse 96, respiratory 16-18, blood pressure 140/85, O2 96% on room air. GI: Incision clean, dry and intact. CARDIOVASCULAR: S1, S2. Irregular regular rhythm. He is lying on a 40 degrees angle in bed. His lungs are clear. PSYCH: Alert, oriented x3. Hemoglobin is 9.9, white count 7.8, sodium 135, potassium 3.9, creatinine is 1.1. ASSESSMENT: 1. Uncontrolled hypertension. 2. Atrial fibrillation with rapid ventricular response. 3. Status post colectomy for colon cancer. 4. Status post hyperkalemia and hyponatremia. 5. Status post severe anemia secondary to large right-sided colon mass, status post resection. 6. Chronic atrial fibrillation. 7. Hypertension. 8. Type 2 diabetes mellitus. 9. Chronic anemia. 10.Coronary artery disease. 11.Prior decortication and thoracotomy. Continue current postop care. Possible discharge home. His diet will be advanced over the next 24-48 hours. His diet was advanced. Possible discharge will be done once his bowel sounds return to normal. His blood pressure is under better control. His hemoglobin is under better control. Electrolytes were normal. Please see further orders. MMODL / IJN: [id number] /
[2017-01-06] MEDS: DIGOXIN 125 MCG TAB PO SCH (09:05)
[2017-01-06] MEDS: POTASSIUM CHLORIDE ER 10 MEQ TAB.ER.PRT PO SCH (09:05)
[2017-01-06] MEDS: FUROSEMIDE 40 MG TAB PO SCH (09:05)
[2017-01-06] MEDS: FAMOTIDINE 20 MG/2 ML VIAL IV SCH ×2 (09:05→20:16)
[2017-01-06] MEDS: CALCITRIOL 0.25 MCG CAP PO SCH (09:05)
[2017-01-06] MEDS: LOSARTAN 50 MG TAB PO SCH (09:05)
[2017-01-06] MEDS: ALVIMOPAN 12 MG CAPSULE PO SCH ×2 (09:05→20:17)
[2017-01-06] MEDS: HEPARIN SODIUM,PORCINE 5,000 UNIT/ML 1 ML VIAL SQ SCH ×3 (09:05→23:24)
[2017-01-06] MEDS: METOPROLOL TARTRATE 50 MG TAB PO SCH ×3 (09:05→20:16)
--- NOTE | 2017-01-06 10:30 | PN ---
PROGRESS NOTE SUBJECT: This is a white male, 86 years old, status post colectomy for colon cancer. He has severe anemia. His hemoglobin has been stabilized. he has history of atrial fibrillation, hypertensive emergency. Vital signs stable. Afebrile. CARDIOVASCULAR: S1, S2. Lungs are clear. GI is soft. Incision clean, dry, and intact. He is on clear liquid diet and will advance him to soft today. Anticipate discharge in the next 24 to 48 hours. Await for pathology to set up chemo and radiation therapy if necessary. MMODL / IJN: [id number] /
--- NOTE | 2017-01-06 11:27 | P.PN ---
Subjective Principal diagnosis: Postop colon resection 01-02-17 The patient is feeling better today. He tolerated a soft diet. He's had bowel movements. Slept better last night. No nausea or vomiting. He does little movement. Objective - Vital Signs Vital signs: Vital Signs Temp 97 F L 01/06/17 08:00 Pulse 71 01/06/17 08:00 Resp 20 01/06/17 08:00 BP 133/90 01/06/17 08:00 Pulse Ox 98 01/06/17 08:31 Intake & Output 01/05/17 01/06/17 01/06/17 18:59 06:59 18:59 Intake Total 1600 1300 180 Output Total 1000 325 150 Balance 600 975 30 Weight 100 kg 98.3 kg Intake: IV 1000 700 D5-0.45% NaCl with KCl 1000 20Meq/l 1,000 ml @ 50 mls /hr IV .Q20H [facility] Rx#: [id number] d5-0.45% NaCl with KCl 700 20Meq/l 1,000ml @ 50 mls/ hr iv Oral 600 600 180 Output: Urine 1000 325 150 Other: Voiding Method Indwelling Catheter Urinal # Voids 1 - Constitutional General appearance: Present: cooperative, no acute distress - Respiratory Respiratory: bilateral: CTA, diminished (Mildly at the bases) - Gastrointestinal General gastrointestinal: Present: normal bowel sounds, soft Localized gastrointestinal: surgical scar: diffuse (Dressing is intact with some old dried blood) - Labs CBC & Chem 7: 01/06/17 05:15 01/06/17 05:15 Labs: Abnormal Lab Results - Last 24 Hours (Table) 01/05/17 01/05/17 01/06/17 Range/Units 11:41 20:39 05:15 RBC (4.30-5.90) m/uL Hgb (13.0-17.5) gm/dL Hct (39.0-53.0) % MCHC (31.0-37.0) g/dL RDW (11.5-15.5) % Glucose 113 H (74-99) mg/dL POC Glucose (mg/dL) 122 H 111 H (75-99) mg/dL Total Protein 5.7 L (6.3-8.2) g/dL Albumin 2.9 L (3.5-5.0) g/dL 01/06/17 01/06/17 Range/Units 05:15 06:14 RBC 3.24 L (4.30-5.90) m/uL Hgb 9.8 L (13.0-17.5) gm/dL Hct 32.2 L (39.0-53.0) % MCHC 30.4 L (31.0-37.0) g/dL RDW 16.7 H (11.5-15.5) % Glucose (74-99) mg/dL POC Glucose (mg/dL) 113 H (75-99) mg/dL Total Protein (6.3-8.2) g/dL Albumin (3.5-5.0) g/dL Assessment and Plan (1) Colon tumor Status: Acute (2) Atrial fibrillation Status: Acute (3) Anemia Status: Acute Plan: We'll convert his IV to a saline lock. Increase activity. Hopefully ready for discharge within the next few days. He feels his strength is adequate that he does not need to go to rehab.
[2017-01-06 11:42] LABS: Glucose,Whole Blood 149 mg/dL (75-99)
[2017-01-06] MEDS: MULTIVITAMINS, THERA 1 EACH TAB PO SCH (11:56)
[2017-01-06] MEDS: CHOLECALCIFEROL 1,000 UNIT TAB PO SCH (11:56)
[2017-01-06] MEDS: glipiZIDE 5 MG TAB PO SCH (11:56)
[2017-01-06 16:38] LABS: Glucose,Whole Blood 83 mg/dL (75-99)
[2017-01-06 20:14] LABS: Glucose,Whole Blood 100 mg/dL (75-99)
[2017-01-06] MEDS: HALOPERIDOL 2 MG TAB PO PRN (20:15)
[2017-01-06] MEDS: ATORVASTATIN 20 MG TAB PO SCH (20:16)
[2017-01-07 05:18] LABS: Glucose,Whole Blood 99 mg/dL (75-99)
[2017-01-07] MEDS: INSULIN LISPRO (humaLOG) 300 UNIT/3 ML VIAL SQ SCH ×4 (06:20→21:37)
[2017-01-07] MEDS: D5-0.45% NACL WITH KCL 20MEQ/L 1,000 ML IV SCH (06:20)
[2017-01-07] MEDS: LACTATED RINGERS 1,000 ML IV SCH (06:20)
[2017-01-07] MEDS: LEVOTHYROXINE 75 MCG TAB PO SCH (06:23)
[2017-01-07] MEDS: HEPARIN SODIUM,PORCINE 5,000 UNIT/ML 1 ML VIAL SQ SCH (09:00)
[2017-01-07] MEDS: ALVIMOPAN 12 MG CAPSULE PO SCH ×2 (09:00→21:38)
[2017-01-07] MEDS: CALCITRIOL 0.25 MCG CAP PO SCH (09:00)
[2017-01-07] MEDS: FAMOTIDINE 20 MG/2 ML VIAL IV SCH (09:01)
[2017-01-07] MEDS: METOPROLOL TARTRATE 50 MG TAB PO SCH ×3 (09:01→21:37)
[2017-01-07] MEDS: FUROSEMIDE 40 MG TAB PO SCH (09:01)
[2017-01-07] MEDS: DIGOXIN 125 MCG TAB PO SCH (09:01)
[2017-01-07] MEDS: LOSARTAN 50 MG TAB PO SCH (09:01)
[2017-01-07] MEDS: POTASSIUM CHLORIDE ER 10 MEQ TAB.ER.PRT PO SCH (09:02)
--- NOTE | 2017-01-07 10:37 | P.PN ---
Subjective Principal diagnosis: Uncontrolled hypertension with hypertensive urgency in emergency, atrial fibrillation and rapid ventricular response, cardiomyopathy and congestive heart failure with chronic diastolic heart failure, right colon mass is status post right colectomy on 01/02/2017 along with ventral hernia repair and partial omentectomy 01/06/17, patient seen and evaluated exam and clinically has improved significantly breathing comfortably no obvious distress present able to sleep better sundowning affect that has been seen previously continue to improve progressively less anxious and agitated, blood sugar within normal limit medications reviewed hemodynamic status stable and continue to get better patient remains on DVT and peptic ulcer disease prophylaxis given the stable blood pressure and no extra dose of hydralazine is required, postop day #4 01/05/2017, patient seen and evaluated examined on the floor today he is breathing comfortably awake and alert in no obvious distress presents slight less agitated and confused however patient had episodes of anxiety and a prehension late last night care plan discussed with RN at length to the hold all was not given patient is more calm and comfortable today. Given that patient's tachycardia and hypertension was better under control was moved out of the ICU predominantly related to his delirium and sundowning effect, which seems to be slightly better but is still present, his labs are reviewed borderline hyponatremia hypokalemia is present with normal renal functions he is anemic which is related to likely colon mass and bleeding associated with that however has been stable is postop day #3 01/04/2017, patient seen and evaluated examined in ICU he is slightly more peaceful but he has been extremely anxious and agitated unable to sleep significant sundowning effects have been seen on him with inability to fall asleep patient continued to manifest tachypnea and tachycardia as well as uncontrolled hypertension heart rate varies from 110 to 120s sometimes goes up to 140 irregular rhythm blood pressure is also running on the higher side patient has been on Lopressor 50 twice a day would recommend to increase it to 3 times a day patient has significant electrolyte imbalance which are being corrected as well patient could benefit from low-dose hold all her bedtime, given significant cardiovascular disease and significant surgery would recommend to keep patient in ICU for another 24 hours This patient is a 86-year-old male who was seen and evaluated examined in the ICU patient has been having issues associated with the abdominal distention and pain which is been going on for 2-3 months patient has been lately having altered bowel habits with intermittent lower GI bleeding patient underwent a colonoscopy and found to have a large right-sided colon mass patient was eventually brought into the hospital underwent resection of mass from the right side patient was successfully weaned and extubated in the recovery area due to his age friability and history of multiple comorbidity decision was made to observe and monitor patient closely in the ICU he has been cleared by surgical services for a clear liquid diet he had some hypertension however he has been reinitiated on antihypertensive agents, IV initiated when necessary hydralazine as well as need arises data predominantly has been obtained from the chart and patient does not give a detailed history Objective - Vital Signs Vital signs: Vital Signs Temp 97.7 F 01/07/17 08:50 Pulse 103 H 01/07/17 08:50 Resp 18 01/07/17 08:50 BP 172/86 01/07/17 08:50 Pulse Ox 97 01/07/17 08:50 Intake & Output 01/06/17 01/07/17 01/07/17 18:59 06:59 18:59 Intake Total 580 0 220 Output Total 350 0 Balance 230 0 220 Weight 98.3 kg Intake: IV 0 D5-0.45% NaCl with KCl 0 20Meq/l 1,000 ml @ 50 mls /hr IV .Q20H [facility] Rx#: [id number] d5-0.45% NaCl with KCl 0 20Meq/l 1,000ml @ 50 mls/ hr iv Oral 580 220 Output: Urine 350 0 Other: Voiding Method Urinal Urinal # Voids 2 - Exam - Constitutional patient is sitting upright on the chair just finished his breakfast more awake and alert this morning compared to last night General appearance: cooperative, disheveled, morbidly obese, no acute distress - EENT Eyes: EOMI, PERRLA, poor dentition, normal appearance ENT: hard of hearing, normal oropharynx Ears: bilateral: normal - Neck Neck: normal ROM Carotids: bilateral: upstroke normal, bruit absent Thyroid: bilateral: normal size - Respiratory Respiratory: bilateral: CTA - Cardiovascular Rhythm: regular Heart sounds: normal: S1, S2 - Gastrointestinal General gastrointestinal: decreased bowel sounds - Integumentary Integumentary: calor, decreased turgor, normal - Neurologic Neurologic: CNII-XII intact - Musculoskeletal Musculoskeletal: generalized weakness, strength equal bilaterally - Psychiatric Psychiatric: A&O x's 2, at times appropriate affect, intact judgment & insight, however get confused at times - Labs CBC & Chem 7: 01/06/17 05:15 01/06/17 05:15 Labs: Abnormal Lab Results - Last 24 Hours (Table) 01/06/17 01/06/17 Range/Units 11:38 20:12 POC Glucose (mg/dL) 149 H 100 H (75-99) mg/dL Assessment and Plan Plan: Uncontrolled hypertension, atrial fibrillation with rapid ventricular response, better under control with current therapy Postop psychosis and delirium, continued to improve Electrolyte imbalance related his significant hypokalemia and hyponatremia, stable and continued to improve progressively, continued to improve Acute on chronic anemia related to Large right-sided colon mass, 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 Uncontrolled hypertension Chronic atrial fibrillation Type 2 diabetes mellitus history of prior pneumonia History of chronic anemia Coronary artery disease with history of prior CABG History of prior decortication and video-assisted thoracotomy We will monitor and observe closely maintain patient on DVT and peptic ulcer disease prophylaxis medications have been resumed will monitor observe the clinical response given multiple comorbidities will keep patient in ICU for now and observe him on his regular medications repeat labs have been ordered we'll follow closely, patient is being replaced with electrolytes continue gentle rehydration, we'll increase the dose of Lopressor to 50 3 times a day Will give a dose I early, patient is a is not a candidate for aggressive anticoagulation will keep DVT) prophylaxis with subcu heparin every 8 for now, we'll keep the fluid running half normal saline for now but but however if noted to have a continued decline on serum sodium would recommend to change it to normal saline probably with a lower rate 50-75 mL an hour, Time with Patient: Greater than 30
--- NOTE | 2017-01-07 10:44 | P.PN ---
Subjective Principal diagnosis: Uncontrolled hypertension with hypertensive urgency in emergency, atrial fibrillation and rapid ventricular response, cardiomyopathy and congestive heart failure with chronic diastolic heart failure, right colon mass is status post right colectomy on 01/02/2017 along with ventral hernia repair and partial omentectomy 01/07/2017, patient seen and evaluated examined he is doing well awake and alert breathing comfortably the sundowning in the psychosis is significantly improved he able to sleep well bit better today, his labs are not done, Eliquis needs to be addressed for his chronic atrial fibrillation will check with general surgery if can be resumed safely as hemoglobin has been stable he's recovering nicely through the postoperative phase he needs some type of anti- thrombotic agent given his chronic atrial fibrillation and high risk for stroke 01/06/17, patient seen and evaluated exam and clinically has improved significantly breathing comfortably no obvious distress present able to sleep better sundowning affect that has been seen previously continue to improve progressively less anxious and agitated, blood sugar within normal limit medications reviewed hemodynamic status stable and continue to get better patient remains on DVT and peptic ulcer disease prophylaxis given the stable blood pressure and no extra dose of hydralazine is required, postop day #4 01/05/2017, patient seen and evaluated examined on the floor today he is breathing comfortably awake and alert in no obvious distress presents slight less agitated and confused however patient had episodes of anxiety and a prehension late last night care plan discussed with RN at length to the hold all was not given patient is more calm and comfortable today. Given that patient's tachycardia and hypertension was better under control was moved out of the ICU predominantly related to his delirium and sundowning effect, which seems to be slightly better but is still present, his labs are reviewed borderline hyponatremia hypokalemia is present with normal renal functions he is anemic which is related to likely colon mass and bleeding associated with that however has been stable is postop day #3 01/04/2017, patient seen and evaluated examined in ICU he is slightly more peaceful but he has been extremely anxious and agitated unable to sleep significant sundowning effects have been seen on him with inability to fall asleep patient continued to manifest tachypnea and tachycardia as well as uncontrolled hypertension heart rate varies from 110 to 120s sometimes goes up to 140 irregular rhythm blood pressure is also running on the higher side patient has been on Lopressor 50 twice a day would recommend to increase it to 3 times a day patient has significant electrolyte imbalance which are being corrected as well patient could benefit from low-dose hold all her bedtime, given significant cardiovascular disease and significant surgery would recommend to keep patient in ICU for another 24 hours This patient is a 86-year-old male who was seen and evaluated examined in the ICU patient has been having issues associated with the abdominal distention and pain which is been going on for 2-3 months patient has been lately having altered bowel habits with intermittent lower GI bleeding patient underwent a colonoscopy and found to have a large right-sided colon mass patient was eventually brought into the hospital underwent resection of mass from the right side patient was successfully weaned and extubated in the recovery area due to his age friability and history of multiple comorbidity decision was made to observe and monitor patient closely in the ICU he has been cleared by surgical services for a clear liquid diet he had some hypertension however he has been reinitiated on antihypertensive agents, IV initiated when necessary hydralazine as well as need arises data predominantly has been obtained from the chart and patient does not give a detailed history Objective - Vital Signs Vital signs: Vital Signs Temp 97.7 F 01/07/17 08:50 Pulse 103 H 01/07/17 08:50 Resp 18 01/07/17 08:50 BP 172/86 01/07/17 08:50 Pulse Ox 97 01/07/17 08:50 Intake & Output 01/06/17 01/07/17 01/07/17 18:59 06:59 18:59 Intake Total 580 0 220 Output Total 350 0 Balance 230 0 220 Weight 98.3 kg Intake: IV 0 D5-0.45% NaCl with KCl 0 20Meq/l 1,000 ml @ 50 mls /hr IV .Q20H [facility] Rx#: [id number] d5-0.45% NaCl with KCl 0 20Meq/l 1,000ml @ 50 mls/ hr iv Oral 580 220 Output: Urine 350 0 Other: Voiding Method Urinal Urinal # Voids 2 - Exam - Constitutional patient is sitting upright on the chair just finished his breakfast more awake and alert this morning compared to last night General appearance: cooperative, disheveled, morbidly obese, no acute distress - EENT Eyes: EOMI, PERRLA, poor dentition, normal appearance ENT: hard of hearing, normal oropharynx Ears: bilateral: normal - Neck Neck: normal ROM Carotids: bilateral: upstroke normal, bruit absent Thyroid: bilateral: normal size - Respiratory Respiratory: bilateral: CTA - Cardiovascular Rhythm: regular Heart sounds: normal: S1, S2 - Gastrointestinal General gastrointestinal: decreased bowel sounds - Integumentary Integumentary: calor, decreased turgor, normal - Neurologic Neurologic: CNII-XII intact - Musculoskeletal Musculoskeletal: generalized weakness, strength equal bilaterally - Psychiatric Psychiatric: A&O x's 2, at times appropriate affect, intact judgment & insight, however get confused at times - Labs CBC & Chem 7: 01/06/17 05:15 01/06/17 05:15 Labs: Abnormal Lab Results - Last 24 Hours (Table) 01/06/17 01/06/17 Range/Units 11:38 20:12 POC Glucose (mg/dL) 149 H 100 H (75-99) mg/dL Assessment and Plan Plan: Uncontrolled hypertension, atrial fibrillation with rapid ventricular response, better under control with current therapy, will discuss with surgical services acephalic was can be resumed prior to discharge Postop psychosis and delirium, continued to improve Electrolyte imbalance related his significant hypokalemia and hyponatremia, stable and continued to improve progressively, continued to improve Acute on chronic anemia related to Large right-sided colon mass, 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 Uncontrolled hypertension Chronic atrial fibrillation Type 2 diabetes mellitus history of prior pneumonia History of chronic anemia Coronary artery disease with history of prior CABG History of prior decortication and video-assisted thoracotomy We will monitor and observe closely maintain patient on DVT and peptic ulcer disease prophylaxis medications have been resumed will monitor observe the clinical response given multiple comorbidities will keep patient in ICU for now and observe him on his regular medications repeat labs have been ordered we'll follow closely, patient is being replaced with electrolytes continue gentle rehydration, we'll increase the dose of Lopressor to 50 3 times a day Will give a dose I early, patient is a is not a candidate for aggressive anticoagulation will keep DVT) prophylaxis with subcu heparin every 8 for now, we'll keep the fluid running half normal saline for now but but however if noted to have a continued decline on serum sodium would recommend to change it to normal saline probably with a lower rate 50-75 mL an hour, Time with Patient: Greater than 30
[2017-01-07 11:19] LABS: Anisocytosis Slight; Basophils # (A) 0.1 k/uL (0-0.2); Basophils % (A) 1 %; CH 30.2; CHCM 30.4; Eosinophils # (A) 0.2 k/uL (0-0.7); Eosinophils % (A) 3 %; HCT 35.9 % (39.0-53.0); HDW 3.03; HGB 10.7 gm/dL (13.0-17.5); Hypochromasia Marked; Luc # (Auto) 0.11; Luc % (Auto) 2; Lymphocytes # (A) 1.7 k/uL (1.0-4.8); Lymphocytes % (A) 25 %; MCH 29.8 pg (25.0-35.0); MCHC 29.7 g/dL (31.0-37.0); MCV 100.2 fL (80.0-100.0); Macrocytosis Slight; Mean Platelet Volume 8.1; Monocytes # (A) 0.5 k/uL (0-1.0); Monocytes % (A) 7 %; Neutrophils # (A) 4.2 k/uL (1.3-7.7); Neutrophils % (A) 62 %; RBC 3.58 m/uL (4.30-5.90); RDW 16.2 % (11.5-15.5); WBC 6.7 k/uL (3.8-10.6); WBC (Perox) 6.68
[2017-01-07 11:38] LABS: Calcium 9.3 mg/dL (8.4-10.2); Magnesium 1.9 mg/dL (1.6-2.3); Potassium 3.9 mmol/L (3.5-5.1); Total Bilirubin 0.4 mg/dL (0.2-1.3); Total Protein 6.4 g/dL (6.3-8.2)
[2017-01-07] MEDS: MULTIVITAMINS, THERA 1 EACH TAB PO SCH (11:38)
[2017-01-07] MEDS: CHOLECALCIFEROL 1,000 UNIT TAB PO SCH (11:38)
[2017-01-07] MEDS: glipiZIDE 5 MG TAB PO SCH (11:38)
[2017-01-07 11:58] LABS: Glucose,Whole Blood 184 mg/dL (75-99)
--- NOTE | 2017-01-07 12:37 | P.PN ---
Subjective A 6-year-old gentleman being seen on morning is currently sitting up in a chair taking a diet. Patient states he has been up ambulating in the ruiz. Patient states he's passing gas and did have a bowel movement this morning is been no nausea vomiting no chest pain underwent a right colectomy with repair of a ventral hernia and a partial omentectomy for a large colon mass on January 02 Objective - Vital Signs Vital signs: Vital Signs Temp 98.5 F 01/07/17 11:25 Pulse 85 01/07/17 11:25 Resp 18 01/07/17 11:25 BP 125/75 01/07/17 11:25 Pulse Ox 99 01/07/17 11:25 Intake & Output 01/06/17 01/07/17 01/07/17 18:59 06:59 18:59 Intake Total 580 0 220 Output Total 350 0 Balance 230 0 220 Weight 98.3 kg Intake: IV 0 D5-0.45% NaCl with KCl 0 20Meq/l 1,000 ml @ 50 mls /hr IV .Q20H [facility] Rx#: [id number] d5-0.45% NaCl with KCl 0 20Meq/l 1,000ml @ 50 mls/ hr iv Oral 580 220 Output: Urine 350 0 Other: Voiding Method Urinal Urinal # Voids 2 2 - Exam Physical exam Pleasant 86-year-old gentleman oriented 3 sitting up in a chair taking a diet reports no nausea no vomiting no chest pain no shortness of breath Lungs essentially clear with adequate air movement on room air Heart S1-S2 audible irregular monitor atrial fibrillation rate controlled Abdomen soft surgical dressing dry bowel tones present no nausea no vomiting urinating no difficulty 1 bowel movement documented Extremities no edema noted - Labs CBC & Chem 7: 01/07/17 11:07 01/07/17 11:07 Labs: Abnormal Lab Results - Last 24 Hours (Table) 01/06/17 01/07/17 01/07/17 Range/Units 20:12 11:07 11:07 RBC 3.58 L (4.30-5.90) m/uL Hgb 10.7 L (13.0-17.5) gm/dL Hct 35.9 L (39.0-53.0) % MCV 100.2 H (80.0-100.0) fL MCHC 29.7 L (31.0-37.0) g/dL RDW 16.2 H (11.5-15.5) % Creatinine 1.46 H (0.66-1.25) mg/dL Glucose 204 H (74-99) mg/dL POC Glucose (mg/dL) 100 H (75-99) mg/dL Albumin 3.4 L (3.5-5.0) g/dL 01/07/17 Range/Units 11:56 RBC (4.30-5.90) m/uL Hgb (13.0-17.5) gm/dL Hct (39.0-53.0) % MCV (80.0-100.0) fL MCHC (31.0-37.0) g/dL RDW (11.5-15.5) % Creatinine (0.66-1.25) mg/dL Glucose (74-99) mg/dL POC Glucose (mg/dL) 184 H (75-99) mg/dL Albumin (3.5-5.0) g/dL Assessment and Plan Plan: Impression Present on admission acute blood loss anemia suspect due to active right colon mass bleeding lower GI bleed Status post colonoscopy for GI bleed showing evidence of a large obstructing right colon mass active bleeding Status post right colectomy, partial omentectomy repair of ventral hernia Known coronary artery disease prior coronary artery bypass grafting Type 2 diabetes Chronic atrial fibrillation controlled ventricular response on elquis at home ICU psychosis with delirium resolving History of decortication and video-assisted thoracotomy Plan Continue postop surgical care Will start elquist Pain control Set up for home care anticipate discharging in the next 24 hours Monitor blood pressure heart rate address as indicated DVT and GI prophylaxis Repeat labs in the morning follow results Further recommendations pending will follow surgical course closely The above impression and plan of care have been discussed and directed by signing physician. Shanna Carl nurse practitioner acting as scribe for signing physician.
[2017-01-07] MEDS ORDERED: traMADol 50 MG TAB PO PRN (12:40)
[2017-01-07] MEDS ORDERED: ACETAMINOPHEN TAB 325 MG TAB PO PRN (12:40)
[2017-01-07 15:06] VITALS: BMI 29.4
[2017-01-07 17:00] LABS: Glucose,Whole Blood 78 mg/dL (75-99)
[2017-01-07 20:48] LABS: Glucose,Whole Blood 196 mg/dL (75-99)
[2017-01-07] MEDS: ATORVASTATIN 20 MG TAB PO SCH (21:37)
--- NOTE | 2017-01-07 22:36 | PN ---
PROGRESS NOTE SUBJECTIVE: 86-year-old, white male, with GERD and severe bleeding. Status post colonoscopy or colectomy. Await pathology. If CBC is improved in the morning and diet is advanced to regular diet if tolerated well, patient will be sent home in stable condition. Follow up as outpatient. Vital signs stable. Afebrile. Cardiovascular S1, S2. Lungs are clear. GI is normal bowel sounds. Incision clean, dry, intact. ASSESSMENT: 1. Status post colon cancer. 2. Status post colectomy. 3. Gastroesophageal reflux disease. 4. Severe anemia status post blood transfusion. 5. Atrial fibrillation. 6. Hypertension acceleration. Patient stabilized. He will be discharged home in the next 24 hours if he continues to improve on his oral intake. MMODL / IJN: [id number] /
[2017-01-07] MEDS: APIXABAN 2.5 MG TABLET PO SCH (22:41)
[2017-01-07] MEDS: FAMOTIDINE 20 MG TAB PO SCH (22:42)
[2017-01-07 23:01] VITALS: RESP 16
[2017-01-08] MEDS: LEVOTHYROXINE 75 MCG TAB PO SCH (06:39)
--- NOTE | 2017-01-08 07:42 | P.PN ---
Subjective Principal diagnosis: Uncontrolled hypertension with hypertensive urgency in emergency, atrial fibrillation and rapid ventricular response, cardiomyopathy and congestive heart failure with chronic diastolic heart failure, right colon mass is status post right colectomy on 01/02/2017 along with ventral hernia repair and partial omentectomy 01/08/2017, patient seen and evaluated examined during the rounds she is awake and alert breathing comfortably no obvious distress present he is ambulating with assistance denies any chest pain his confusion has almost resolved he is back to baseline, patient lately has been getting adequate sleep, he has been resumed on his and requests which appears to be tolerating well he's back on his home medications as well no obvious distress otherwise is present, borderline hyperglycemia is noted labs from yesterday reviewed 01/07/2017, patient seen and evaluated examined he is doing well awake and alert breathing comfortably the sundowning in the psychosis is significantly improved he able to sleep well bit better today, his labs are not done, Eliquis needs to be addressed for his chronic atrial fibrillation will check with general surgery if can be resumed safely as hemoglobin has been stable he's recovering nicely through the postoperative phase he needs some type of anti- thrombotic agent given his chronic atrial fibrillation and high risk for stroke 01/06/17, patient seen and evaluated exam and clinically has improved significantly breathing comfortably no obvious distress present able to sleep better owning affect that has been seen previously continue to improve progressively less anxious and agitated, blood sugar within normal limit medications reviewed hemodynamic status stable and continue to get better patient remains on DVT and peptic ulcer disease prophylaxis given the stable blood pressure and no extra dose of hydralazine is required, postop day #4 01/05/2017, patient seen and evaluated examined on the floor today he is breathing comfortably awake and alert in no obvious distress presents slight less agitated and confused however patient had episodes of anxiety and a prehension late last night care plan discussed with RN at length to the hold all was not given patient is more calm and comfortable today. Given that patient's tachycardia and hypertension was better under control was moved out of the ICU predominantly related to his delirium and sundowning effect, which seems to be slightly better but is still present, his labs are reviewed borderline hyponatremia hypokalemia is present with normal renal functions he is anemic which is related to likely colon mass and bleeding associated with that however has been stable is postop day #3 01/04/2017, patient seen and evaluated examined in ICU he is slightly more peaceful but he has been extremely anxious and agitated unable to sleep significant sundowning effects have been seen on him with inability to fall asleep patient continued to manifest tachypnea and tachycardia as well as uncontrolled hypertension heart rate varies from 110 to 120s sometimes goes up to 140 irregular rhythm blood pressure is also running on the higher side patient has been on Lopressor 50 twice a day would recommend to increase it to 3 times a day patient has significant electrolyte imbalance which are being corrected as well patient could benefit from low-dose hold all her bedtime, given significant cardiovascular disease and significant surgery would recommend to keep patient in ICU for another 24 hours This patient is a 86-year-old male who was seen and evaluated examined in the ICU patient has been having issues associated with the abdominal distention and pain which is been going on for 2-3 months patient has been lately having altered bowel habits with intermittent lower GI bleeding patient underwent a colonoscopy and found to have a large right-sided colon mass patient was eventually brought into the hospital underwent resection of mass from the right side patient was successfully weaned and extubated in the recovery area due to his age friability and history of multiple comorbidity decision was made to observe and monitor patient closely in the ICU he has been cleared by surgical services for a clear liquid diet he had some hypertension however he has been reinitiated on antihypertensive agents, IV initiated when necessary hydralazine as well as need arises data predominantly has been obtained from the chart and patient does not give a detailed history Objective - Vital Signs Vital signs: Vital Signs Temp 97 F L 01/07/17 23:00 Pulse 91 01/07/17 23:00 Resp 16 01/07/17 23:00 BP 146/86 01/07/17 23:00 Pulse Ox 99 01/07/17 23:00 Intake & Output 01/07/17 01/08/17 01/08/17 18:59 06:59 18:59 Intake Total 540 100 Output Total 700 500 Balance -160 -400 Weight 98.3 kg Intake: Oral 540 100 Output: Urine 700 500 Other: Voiding Method Urinal # Voids 1 1 - Exam - Constitutional Patient is ambulating in the hallway with assistance, awake and alert this morning more awake and oriented compared to previous exam General appearance: cooperative, disheveled, morbidly obese, no acute distress - EENT Eyes: EOMI, PERRLA, poor dentition, normal appearance ENT: hard of hearing, normal oropharynx Ears: bilateral: normal - Neck Neck: normal ROM Carotids: bilateral: upstroke normal, bruit absent Thyroid: bilateral: normal size - Respiratory Respiratory: bilateral: CTA - Cardiovascular Rhythm: regular Heart sounds: normal: S1, S2 - Gastrointestinal General gastrointestinal: decreased bowel sounds - Integumentary Integumentary: calor, decreased turgor, normal - Neurologic Neurologic: CNII-XII intact - Musculoskeletal Musculoskeletal: generalized weakness, strength equal bilaterally - Psychiatric Psychiatric: A&O x's 2, at times appropriate affect, intact judgment & insight, however get confused at times - Labs CBC & Chem 7: 01/07/17 11:07 01/07/17 11:07 Labs: Abnormal Lab Results - Last 24 Hours (Table) 01/07/17 01/07/17 01/07/17 Range/Units 11:07 11:07 11:56 RBC 3.58 L (4.30-5.90) m/uL Hgb 10.7 L (13.0-17.5) gm/dL Hct 35.9 L (39.0-53.0) % MCV 100.2 H (80.0-100.0) fL MCHC 29.7 L (31.0-37.0) g/dL RDW 16.2 H (11.5-15.5) % Creatinine 1.46 H (0.66-1.25) mg/dL Glucose 204 H (74-99) mg/dL POC Glucose (mg/dL) 184 H (75-99) mg/dL Albumin 3.4 L (3.5-5.0) g/dL 01/07/17 Range/Units 20:35 RBC (4.30-5.90) m/uL Hgb (13.0-17.5) gm/dL Hct (39.0-53.0) % MCV (80.0-100.0) fL MCHC (31.0-37.0) g/dL RDW (11.5-15.5) % Creatinine (0.66-1.25) mg/dL Glucose (74-99) mg/dL POC Glucose (mg/dL) 196 H (75-99) mg/dL Albumin (3.5-5.0) g/dL Assessment and Plan Plan: Uncontrolled hypertension, atrial fibrillation with rapid ventricular response, better under control with current therapy, discussed with the surgical service and Eliquis has been resumed Postop psychosis and delirium, continued to improve Electrolyte imbalance related his significant hypokalemia and hyponatremia, stable and continued to improve progressively, continued to improve Acute on chronic anemia related to Large right-sided colon mass, 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 Uncontrolled hypertension Chronic atrial fibrillation Type 2 diabetes mellitus history of prior pneumonia History of chronic anemia Coronary artery disease with history of prior CABG History of prior decortication and video-assisted thoracotomy We will monitor and observe closely maintain patient on DVT and peptic ulcer disease prophylaxis medications have been resumed will monitor observe the clinical response given multiple comorbidities will keep patient in ICU for now and observe him on his regular medications repeat labs have been ordered we'll follow closely, patient is being replaced with electrolytes continue gentle rehydration, we'll increase the dose of Lopressor to 50 3 times a day Will give a dose I early, patient is a is not a candidate for aggressive anticoagulation will keep DVT) prophylaxis with subcu heparin every 8 for now, we'll keep the fluid running half normal saline for now but but however if noted to have a continued decline on serum sodium would recommend to change it to normal saline probably with a lower rate 50-75 mL an hour, Time with Patient: Greater than 30
[2017-01-08] MEDS: LOSARTAN 50 MG TAB PO SCH (07:43)
[2017-01-08] MEDS: METOPROLOL TARTRATE 50 MG TAB PO SCH (07:43)
[2017-01-08] MEDS: ALVIMOPAN 12 MG CAPSULE PO SCH (07:43)
[2017-01-08] MEDS: POTASSIUM CHLORIDE ER 10 MEQ TAB.ER.PRT PO SCH (07:43)
[2017-01-08] MEDS: CALCITRIOL 0.25 MCG CAP PO SCH (07:43)
[2017-01-08] MEDS: APIXABAN 2.5 MG TABLET PO SCH (07:43)
[2017-01-08] MEDS: INSULIN LISPRO (humaLOG) 300 UNIT/3 ML VIAL SQ SCH ×2 (07:43→12:29)
[2017-01-08] MEDS: FAMOTIDINE 20 MG TAB PO SCH (07:43)
[2017-01-08] MEDS: FUROSEMIDE 40 MG TAB PO SCH (07:43)
[2017-01-08] MEDS: DIGOXIN 125 MCG TAB PO SCH (07:43)
[2017-01-08 07:47] LABS: Glucose,Whole Blood 109 mg/dL (75-99)
[2017-01-08 07:55] VITALS: BP 152/70; PULSE 90; TEMP 98.1
[2017-01-08 12:29] LABS: Glucose,Whole Blood 167 mg/dL (75-99)
[2017-01-08] MEDS: CHOLECALCIFEROL 1,000 UNIT TAB PO SCH (12:29)
[2017-01-08] MEDS: glipiZIDE 5 MG TAB PO SCH (12:29)
[2017-01-08] MEDS: MULTIVITAMINS, THERA 1 EACH TAB PO SCH (12:29)
--- NOTE | 2017-01-08 13:08 | P.DS ---
Providers Date of admission: 01/02/17 15:17 Expected date of discharge: 01/08/17 Attending physician: Jose De Jesus Carpio Consults: 01/02/17 15:18 Consult Physician Routine Consulting Provider: Pj Murrell Consult Reason/Comments: Medical management Do you want consulting provider notified?: Yes 01/02/17 15:30 Consult Physician Routine Consulting Provider: Jason Dowd Consult Reason/Comments: ICU management Do you want consulting provider notified?: Yes 01/08/17 12:03 Consult Physician Routine Consulting Provider: Cheo Lopez Consult Reason/Comments: colon cancer Do you want consulting provider notified?: Yes Primary care physician: [facility] Course: Pleasant 86-year-old gentleman who underwent a colonoscopy for a GI bleed was found to have a large obstructing right colon cancer which was causing the bleeding. 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 Patient did have an episode of hypertension urgency also a to fibrillation with rapid ventricular response. Patient was monitored closely in the intensive care unit stabilized and was able to be transferred to a surgical unit. Patient was followed by pulmonary and surgical service patient's anticoagulation elquis 2.5mg was restarted twice a day dosing. And on the day of discharge patient was felt to be hemodynamically stable and appropriate proceed with a discharge. The attending Dr. Murrell indicated that he would set up in the outpatient setting Dr. 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 Shanna Carl nurse practitioner acting as scribe for signing physician. Plan - Discharge Summary New Discharge Prescriptions: New Acetaminophen Tab [Tylenol] 650 mg PO Q4HR PRN tab PRN Reason: Fever and/ or Mild Pain Continue glipiZIDE [Glucotrol] 5 mg PO AC-LUNCH Simvastatin [Zocor] 40 mg PO HS Potassium Chloride [K-Tab ER] 10 meq PO QAM Multivitamins, Thera [Multivitamin (formulary)] 1 tab PO DAILY Metoprolol Tartrate [Lopressor] 50 mg PO BID Losartan [Cozaar] 50 mg PO QAM Levothyroxine Sodium [Synthroid] 150 mcg PO QAM Furosemide [Lasix] 40 mg PO DAILY Digoxin [Lanoxin] 125 mcg PO QAM Calcitriol [Rocaltrol] 0.25 mcg PO DAILY Cholecalciferol [Vitamin D3] 1,000 unit PO DAILY Cyanocobalamin (Vitamin B-12) [Vitamin B-12] 1,000 mcg PO DAILY Apixaban [Eliquis] 2.5 mg PO BID #60 tab Discharge Medication List Calcitriol [Rocaltrol] 0.25 mcg PO DAILY 01/03/15 [History] Digoxin [Lanoxin] 125 mcg PO QAM 01/03/15 [History] Furosemide [Lasix] 40 mg PO DAILY 01/03/15 [History] Levothyroxine Sodium [Synthroid] 150 mcg PO QAM 01/03/15 [History] Losartan [Cozaar] 50 mg PO QAM 01/03/15 [History] Metoprolol Tartrate [Lopressor] 50 mg PO BID 01/03/15 [History] Multivitamins, Thera [Multivitamin (formulary)] 1 tab PO DAILY 01/03/15 [History ] Potassium Chloride [K-Tab ER] 10 meq PO QAM 01/03/15 [History] Simvastatin [Zocor] 40 mg PO HS 01/03/15 [History] glipiZIDE [Glucotrol] 5 mg PO AC-LUNCH 01/03/15 [History] Cholecalciferol [Vitamin D3] 1,000 unit PO DAILY 11/28/16 [History] Cyanocobalamin (Vitamin B-12) [Vitamin B-12] 1,000 mcg PO DAILY 11/28/16 [ History] Apixaban [Eliquis] 2.5 mg PO BID #60 tab 12/01/16 [Rx] Acetaminophen Tab [Tylenol] 650 mg PO Q4HR PRN tab 01/08/17 [Rx] Follow up Appointment(s)/Referral(s): Pj Murrell MD [Primary Care Provider] - 01/10/17 1:45 pm Jason Dowd MD [STAFF PHYSICIAN] - 1 Week (Office closed, call for appointment) Jose De Jesus Carpio MD [STAFF PHYSICIAN] - 01/15/17 3:25 pm Patient Instructions/Handouts: Anemia (DC) Activity/Diet/Wound Care/Special Instructions: No lifting over 10 pounds Shower daily No tub bath Notify Dr. carpio of any abdominal pain distention fever chills or redness at surgical site Dr. Murrell will set [facility] to follow Discharge Disposition: HOME WITH HOME HEALTH SERVICES
== END 2017-01-08 15:15 | disposition home or self-care (01) | DRG 330 ==
LOC: ORWHC2ENDO 09:00 → 6ICU 15:17 → 6SEL 01-04 15:27 → 4MS4W 01-07 13:11
PROVIDERS: ADMIT Surgery; ATTEND Surgery
PROC: 0DTF0ZZ Resection of Right Large Intestine, Open Approach (ICD-10-PCS; principal; 2017-01-02 09:40)
PROC: 0DBS0ZZ (ICD-10-PCS; principal; 2017-01-02 09:40)
DX: C18.2 Malignant neoplasm of ascending colon (principal); E87.1 Hypo-osmolality and hyponatremia; I42.9 Cardiomyopathy, unspecified; I11.0 Hypertensive heart disease with heart failure; F03.90 Unspecified dementia, unspecified severity, without behavioral disturbance, psychotic disturbance, mood disturbance, and anxiety; I50.32 Chronic diastolic (congestive) heart failure; D62 Acute posthemorrhagic anemia; E11.9 Type 2 diabetes mellitus without complications; E87.6 Hypokalemia; F28 Other psychotic disorder not due to a substance or known physiological condition; I25.10 Atherosclerotic heart disease of native coronary artery without angina pectoris; I48.2 Chronic atrial fibrillation; J45.909 Unspecified asthma, uncomplicated; K21.9 Gastro-esophageal reflux disease without esophagitis; K43.9 Ventral hernia without obstruction or gangrene; I16.0 Hypertensive urgency; Z79.01 Long term (current) use of anticoagulants; Z79.4 Long term (current) use of insulin; Z79.899 Other long term (current) drug therapy; Z85.828 Personal history of other malignant neoplasm of skin; Z86.010 Personal history of colon polyps; Z87.01 Personal history of pneumonia (recurrent); Z87.891 Personal history of nicotine dependence; Z95.1 Presence of aortocoronary bypass graft
CPT/HCPCS: 43239; 44404; 45380; 80048; 80053; 82378; 83036; 83735; 84100; 84132; 85025; 85027; 85610; 85730; 86850; 86900; 86901; 86920; 88305; 88309; 88342; 93005; 94760

== ENCOUNTER → 2017-01-21 | Outpatient (CLI) | payer MEDICARE ==
--- NOTE | 2017-01-22 08:20 | CT ---
EXAMINATION TYPE: CT ChestAbdPelvis w con DATE OF EXAM: 01/21/2017 COMPARISON: CT abdomen and pelvis February 06, 2012. CT chest March 14, 2007. Two-view chest x-ray November 28, 2016. HISTORY: c/o abdominal and pelvic pain. Recent partial colectomy. Pain in epigastric region and lower chest per patient. CT DLP: 1618 mGycm. Automated Exposure Control for Dose Reduction was Utilized. CONTRAST: CT scan of the thorax, abdomen and pelvis is performed with IV Contrast, patient injected with 100 mL of Visipaque 320. FINDINGS: LUNGS: There is background mild to moderate emphysematous change with upper lung bleb and peripheral reticulation or scarring. There is persistent linear scarring in the left lung bases near diaphragm. There is persistent posterior left basilar calcified pleural thickening felt stable. No suspicious gr oundglass opacification or nodule is present. No pleural effusion or pneumothorax is seen bilaterally . MEDIASTINUM: There are no greater than 1 cm hilar or mediastinal lymph nodes. No pericardial effusi on is seen. Post CABG changes with mediastinal clips and sternal wires is present. There is cardiome bassam with moderate to severe left greater than right biatrial dilatation. Main pulmonary artery is di lated at 4.0 cm on axial image 29. Adjacent ascending aorta measures 3.[address] findings suggesting underlying pulmonary artery hypertension. OTHER: Bilateral gynecomastia is present. LIVER/GB: Cholecystectomy clips are redemonstrated. PANCREAS: No significant abnormality is seen. SPLEEN: No significant abnormality is seen. ADRENALS: No significant abnormality is seen. KIDNEYS: Some cortical thinning in both kidneys is present. There is symmetric cortical medullary upt mois[place] and excretion without evidence of hydronephrosis bilaterally. Subcentimeter exophytic low dense l esion laterally lower pole level left kidney on image 75 is stable and presumed benign. There is new rim calcified central cyst at area of hemorrhagic or proteinaceous cyst on prior study centrally righ t kidney measuring 1.5 cm on coronal image 68 also presumed benign. Bladder is poorly distended and t hus suboptimally evaluated. There is retroaortic left renal vein which is normal variant redemonstrat ed. BOWEL: There are surgical changes epigastric region presumed from [place] fundoplication with stable s mall hiatal hernia redemonstrated. Oral contrast reaches level of rectum. There is no suspicious smal l or large bowel dilatation. There are diverticula in the sigmoid colon redemonstrated. There is no C T evidence for acute diverticulitis. There is been right-sided partial colectomy noted. GENITAL ORGANS: Central zone calcification is seen in prostate gland which is upper limits of normal. Adjacent phleboliths are seen. LYMPH NODES: No greater than 1cm abdominal or pelvic lymph nodes are appreciated. OSSEOUS STRUCTURES: There is exaggerated curvature in the cervical thoracic spine. There is prominent multilevel spurring in the visualized spine. There is facet arthropathy lower lumbar levels. There i s moderate joint space loss in both hips, right greater than left. There is prominent trabecula and e xpansion the visualized proximal right femur redemonstrated seen best near coronal image 56. Moderate to severe degenerative change in both shoulders is again seen. OTHER: Scar tissue in the anterior abdominal wall vertically is noted near level of umbilicus. There is mild to moderate calcified plaque of aorta extending into branch vessels redemonstrated. IMPRESSION: 1. New partial colectomy proximal colon. No bowel obstruction is seen. Stable findings from [place] fu ndoplication surgery epigastric region noted. 2. Chronic lung changes and cardiomegaly with underlying pulmonary artery hypertension, no acute pulm onary process. 3. Paget's disease involving proximal right femur redemonstrated.
== END | disposition home or self-care (01) ==
LOC: RADCTMAIN 15:58
PROVIDERS: ATTEND Family Medicine
DX: R91.8 Other nonspecific abnormal finding of lung field (principal); R10.9 Unspecified abdominal pain; I51.7 Cardiomegaly; I27.20 Pulmonary hypertension, unspecified; Z90.49 Acquired absence of other specified parts of digestive tract
CPT/HCPCS: 82565; 84520; 71260; 74177; 36415; Q9967

== ENCOUNTER 2017-04-08 12:07 | Inpatient (IN) | payer MEDICARE, OTHER ==
[2017-04-08] MEDS ORDERED: ONDANSETRON 4 MG/2 ML VIAL IVP STA (12:30)
[2017-04-08] MEDS ORDERED: SODIUM CHLORIDE 0.9% 1,000 ML IV STA ×2 (12:30)
[2017-04-08] MEDS ORDERED: PANTOPRAZOLE 40 MG/10 ML VIAL IVP STA (12:30)
[2017-04-08] MEDS ORDERED: HYDROmorphone 1 MG/ML 1 ML SYRINGE IVP STA (12:30)
--- NOTE | 2017-04-08 13:03 | ED ---
General Adult HPI - General Chief complaint: Nausea/Vomiting/Diarrhea Stated complaint: Dehydrated-Cancer Pt Time Seen by Provider: 04/08/17 12:21 Source: patient Mode of arrival: wheelchair Limitations: no limitations - History of Present Illness Initial comments: This 86-year-old white male presents with multiple complaints. He states that he initially was diagnosed with colon cancer in November of this year. This was diagnosed via routine colonoscopy and then he had the tumor removed surgically. He has been undergoing oral chemotherapy. He is on the second round and states that he's been having significant side effects of the medications. He states that his hands feel numb and are very painful and he has developed an erythematous rash to both hands and arms. He also is complaining of oral sores on his lips and mouth and is having hard time eating or drinking. He further relates some moderately significant diarrhea. He has occasional slight abdominal pain more in the right upper abdomen. He states that he feels extremely weak and can barely complete activities of daily living. He does have pain to his bilateral calves worse on the left side. He denies any history of DVT or PE. He also complains of some shortness of breath. His symptoms have worsened over the past 3 days. He denies any fevers or chills or chest pain. No other complaints or modifying factors. - Related Data Home Medications Medication Instructions Recorded Confirmed Calcitriol [Rocaltrol] 0.25 mcg PO DAILY 01/03/15 04/08/17 Digoxin [Lanoxin] 125 mcg PO QAM 01/03/15 04/08/17 Furosemide [Lasix] 40 mg PO DAILY 01/03/15 04/08/17 Levothyroxine Sodium [Synthroid] 150 mcg PO QAM 01/03/15 04/08/17 Losartan [Cozaar] 50 mg PO QAM 01/03/15 04/08/17 Metoprolol Tartrate [Lopressor] 50 mg PO BID 01/03/15 04/08/17 Potassium Chloride [K-Tab ER] 20 meq PO DAILY 01/03/15 04/08/17 Simvastatin [Zocor] 40 mg PO HS 01/03/15 04/08/17 glipiZIDE [Glucotrol] 5 mg PO AC-BID 01/03/15 04/08/17 Ammonium Lactate Cream [Lac-Hydrin 1 applic TOPICAL BID 04/08/17 04/08/17 12% Cream] Artificial Tears-Hypromellose 1 drops BOTH EYES BID 04/08/17 04/08/17 [Artificial Tear Drops] Capecitabine [Xeloda] 2,500 mg PO BID 04/08/17 04/08/17 Ferrous Sulfate [Feosol] 325 mg PO BID 04/08/17 04/08/17 Omeprazole 20 mg PO BID 04/08/17 04/08/17 Polyethylene Glycol 3350 [Miralax] 17 gm PO DAILY 04/08/17 04/08/17 Vit C/E/Zn/Coppr/Lutein/Zeaxan 1 cap PO BID 04/08/17 04/08/17 [Preservision Areds 2 Softgel] guaiFENesin [Mucinex] 600 mg PO Q12H PRN 04/08/17 04/08/17 Previous Rx's Medication Instructions Recorded Apixaban [Eliquis] 2.5 mg PO BID #60 tab 12/01/16 Allergies Allergy/AdvReac Type Severity Reaction Status Date / Time No Known Allergies Allergy Verified 04/08/17 14:28 Review of Systems ROS Statement: Those systems with pertinent positive or pertinent negative responses have been documented in the HPI. ROS Other: All systems not noted in ROS Statement are negative. 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 AND NO FURTHER PROBLEMS, PUD, ANEMIA, NIDDM TYPE II, HYPERTHYROID WITH THYROIDECTOMY, VERTIGO AT TIMES, HIATAL HERNIA, SINUS PROBLEMS AT TIMES, OCCASIONAL BACK PAIN, PERIPHERAL EDEMA, SKIN CANCER WITH REMOVAL, colon CA History of Any Multi-Drug Resistant Organisms: None Reported Past Surgical History: Cholecystectomy, Coronary Bypass/CABG Additional Past Surgical History / Comment(s): thyroidectomy Past Anesthesia/Blood Transfusion Reactions: No Reported Reaction Additional Past Anesthesia/Blood Transfusion Reaction / Comment(s): PT HAS RECEIVED BLOOD IN PAST WITHOUT REACTION. Past Psychological History: No Psychological Hx Reported Smoking Status: Never smoker Past Alcohol Use History: None Reported Past Drug Use History: None Reported - Past Family History Father Family Medical History: No Reported History Additional Family Medical History / Comment(s): FATHER AT THE AGE OF 102YRS. Mother Family Medical History: No Reported History Additional Family Medical History / Comment(s): MOTHER HAD HEART PROBLEMS. SHE AT THE AGE OF 95YRS. General Exam - General Exam Comments Initial Comments: GENERAL: The patient is well nourished and well hydrated. VITAL SIGNS: Heart rate, blood pressure, respiratory rate reviewed as recorded in nurse's notes. EYES: Pupils are round and reactive. Extraocular movements are intact. No conjunctival / lid redness or swelling. ENT: No external evidence of injury, swelling, or ecchymosis. Airway is patent. There are significant upper and lower lip ulcerations. There is occasional areas of erythema and ulceration in the soft palate. Mucous membranes are dry. NECK: Nontender. No swelling or evidence of injury. No subcutaneous emphysema. Trachea is midline. No thyroid mass. HEART: Regular rate and rhythm. Good peripheral pulses. LUNGS/CHEST: Breath sounds clear and equal bilaterally. No rales, rhonchi, or wheezes. No ecchymosis, subcutaneous emphysema, or tenderness. Tachypnea noted. ABDOMEN: There is mild tenderness noted to the right upper abdomen. The abdomen is soft. No palpable masses or organomegaly. No peritoneal signs. No abdominal wall swelling or ecchymosis. EXTREMITIES: There is tenderness to the bilateral calves worse on the left side with mild swelling on the left. Normal muscle tone and function. No thoracolumbar tenderness. NEUROLOGIC: Sensation is grossly intact. Cranial nerve exam reveals face is symmetrical, tongue is midline, speech is clear. SKIN: There is swelling and some moderate erythema diffusely throughout the hands and into the forearms. No induration or masses noted. PSYCHIATRIC: Alert and oriented. Appropriate behavior and judgment. Limitations: no limitations Course Vital Signs 04/08/17 04/08/17 04/08/17 12:08 13:40 15:00 Temperature 97.2 F L 97.2 F L 97.2 F L Pulse Rate 68 110 H 93 Respiratory 18 22 18 Rate Blood Pressure 118/55 125/71 111/74 O2 Sat by Pulse 99 95 97 Oximetry Medical Decision Making - Medical Decision Making The patient was seen and examined. All diagnostics were reviewed. The EKG shows atrial fibrillation with rapid ventricular response and occasional PVC. There is no acute ST-T wave changes identified with some mild artifact. The QRS duration is 98 and the QTC intervals 444. An IV was established and received some Dilaudid and Zofran intravenously. The laboratories reviewed and does show evidence of acute kidney injury as well as a elevated d-dimer, elevated glucose, and elevated troponin. There is a mild anemia as well. The x -ray of the chest shows a left pleural effusion as well as some cardiomegaly. The acute abdominal series shows nonspecific findings. A CT of the thorax cannot be completed to rule out PE due to the elevated kidney function studies. However, it is felt unlikely that he has a pulmonary embolism as he currently is on Eliquis. The lower extremity venous Doppler ultrasound is negative for any evidence of DVT bilaterally. He is feeling much improved on recheck. Nevertheless, it is felt as though he would require admission to the hospital. Case was discussed with Dr. Murrell and he is agreeable with admission with Dr. Berrios to consult. - Lab Data Result diagrams: 04/08/17 13:30 04/08/17 13:30 Lab Results 04/08/17 04/08/17 04/08/17 Range/Units 13:30 13:30 13:30 WBC 6.8 (3.8-10.6) k/uL RBC 4.40 (4.30-5.90) m/uL Hgb 12.2 L (13.0-17.5) gm/dL Hct 38.1 L (39.0-53.0) % MCV 86.6 (80.0-100.0) fL MCH 27.7 (25.0-35.0) pg MCHC 32.0 (31.0-37.0) g/dL RDW 22.5 H (11.5-15.5) % Plt Count 184 (150-450) k/uL Neutrophils % 72 % Lymphocytes % 24 % Monocytes % 1 % Eosinophils % 2 % Basophils % 0 % Neutrophils # 4.9 (1.3-7.7) k/uL Lymphocytes # 1.6 (1.0-4.8) k/uL Monocytes # 0.1 (0-1.0) k/uL Eosinophils # 0.1 (0-0.7) k/uL Basophils # 0.0 (0-0.2) k/uL Anisocytosis Moderate Macrocytosis Slight PT (9.0-12.0) sec INR (<1.2) APTT (22.0-30.0) sec D-Dimer (<0.60) mg/L FEU Sodium 136 L (137-145) mmol/L Potassium 4.1 (3.5-5.1) mmol/L Chloride 104 (98-107) mmol/L Carbon Dioxide 19 L (22-30) mmol/L Anion Gap 13 mmol/L BUN 59 H (9-20) mg/dL Creatinine 2.32 H (0.66-1.25) mg/dL Est GFR (MDRD) Af Amer 32 (>60 ml/min/1.73 sqM) Est GFR (MDRD) Non-Af 27 (>60 ml/min/1.73 sqM) Glucose 166 H (74-99) mg/dL Plasma Lactic Acid Nic (0.7-2.0) mmol/L Calcium 9.8 (8.4-10.2) mg/dL Magnesium 2.0 (1.6-2.3) mg/dL Total Bilirubin 1.1 (0.2-1.3) mg/dL AST 21 (17-59) U/L ALT 24 (21-72) U/L Alkaline Phosphatase 74 (38-126) U/L Total Creatine Kinase 43 L (55-170) U/L CK-MB (CK-2) 2.0 (0.0-2.4) ng/mL CK-MB (CK-2) Rel Index 4.7 Troponin I 0.045 H* (0.000-0.034) ng/mL Total Protein 7.0 (6.3-8.2) g/dL Albumin 3.8 (3.5-5.0) g/dL Amylase 53 (30-110) U/L Lipase 145 (23-300) U/L Digoxin ng/mL 04/08/17 04/08/17 04/08/17 Range/Units 13:30 13:30 13:35 WBC (3.8-10.6) k/uL RBC (4.30-5.90) m/uL Hgb (13.0-17.5) gm/dL Hct (39.0-53.0) % MCV (80.0-100.0) fL MCH (25.0-35.0) pg MCHC (31.0-37.0) g/dL RDW (11.5-15.5) % Plt Count (150-450) k/uL Neutrophils % % Lymphocytes % % Monocytes % % Eosinophils % % Basophils % % Neutrophils # (1.3-7.7) k/uL Lymphocytes # (1.0-4.8) k/uL Monocytes # (0-1.0) k/uL Eosinophils # (0-0.7) k/uL Basophils # (0-0.2) k/uL Anisocytosis Macrocytosis PT 12.6 H (9.0-12.0) sec INR 1.3 H (<1.2) APTT 22.0 (22.0-30.0) sec D-Dimer 1.16 H (<0.60) mg/L FEU Sodium (137-145) mmol/L Potassium (3.5-5.1) mmol/L Chloride (98-107) mmol/L Carbon Dioxide (22-30) mmol/L Anion Gap mmol/L BUN (9-20) mg/dL Creatinine (0.66-1.25) mg/dL Est GFR (MDRD) Af Amer (>60 ml/min/1.73 sqM) Est GFR (MDRD) Non-Af (>60 ml/min/1.73 sqM) Glucose (74-99) mg/dL Plasma Lactic Acid Nic 2.0 (0.7-2.0) mmol/L Calcium (8.4-10.2) mg/dL Magnesium (1.6-2.3) mg/dL Total Bilirubin (0.2-1.3) mg/dL AST (17-59) U/L ALT (21-72) U/L Alkaline Phosphatase (38-126) U/L Total Creatine Kinase (55-170) U/L CK-MB (CK-2) (0.0-2.4) ng/mL CK-MB (CK-2) Rel Index Troponin I (0.000-0.034) ng/mL Total Protein (6.3-8.2) g/dL Albumin (3.5-5.0) g/dL Amylase (30-110) U/L Lipase (23-300) U/L Digoxin 0.7 ng/mL Disposition Clinical Impression: Dehydration, Weakness, Leg pain, Rash, History of colon cancer, Bilateral hand numbness, Bilateral hand pain, Dyspnea, Mouth ulcer, Lip ulceration, Chemotherapy adverse reaction, Anemia, Acute kidney injury, Elevated d-dimer, Elevated troponin, Hyperglycemia, Pleural effusion, left, Atrial fibrillation Disposition: ADMITTED IP TO THIS HOSP Condition: Fair Time of Disposition: 15:40 Decision Date: 04/08/17 Decision Time: 15:40
[2017-04-08 13:46] LABS: Anisocytosis Moderate; Basophils % (A) 0 %; CHCM 32.4; Eosinophils # (A) 0.1 k/uL (0-0.7); Eosinophils % (A) 2 %; HCT 38.1 % (39.0-53.0); HGB 12.2 gm/dL (13.0-17.5); Luc # (Auto) 0.06; Luc % (Auto) 1; Lymphocytes # (A) 1.6 k/uL (1.0-4.8); Lymphocytes % (A) 24 %; MCH 27.7 pg (25.0-35.0); MCV 86.6 fL (80.0-100.0); Macrocytosis Slight; Mean Platelet Volume 7.3; Monocytes # (A) 0.1 k/uL (0-1.0); Monocytes % (A) 1 %; Neutrophils # (A) 4.9 k/uL (1.3-7.7); Neutrophils % (A) 72 %; RDW 22.5 % (11.5-15.5); WBC 6.8 k/uL (3.8-10.6); WBC (Perox) 7.13
[2017-04-08 13:54] LABS: Calcium 9.8 mg/dL (8.4-10.2); Potassium 4.1 mmol/L (3.5-5.1); Total Bilirubin 1.1 mg/dL (0.2-1.3)
[2017-04-08 13:59] LABS: INR 1.3 (<1.2); Prothrombin Time 12.6 sec (9.0-12.0)
--- NOTE | 2017-04-08 14:12 | XR ---
EXAMINATION TYPE: XR chest 2V DATE OF EXAM: 04/08/2017 COMPARISON: 11/28/2016 TECHNIQUE: PA and lateral views submitted. HISTORY: Pain FINDINGS: Hypertrophic change of the spine correlate for diffuse idiopathic skeletal hyperostosis. Heart is enl arged and there is postoperative change. Arthropathy of the shoulders. Elevated left hemidiaphragm. T iny left pleural effusion noted and there is elevation left hemidiaphragm. IMPRESSION: 1. Cardiomegaly and tiny left pleural effusion.
--- NOTE | 2017-04-08 14:14 | XR ---
EXAMINATION TYPE: XR abdomen 2V DATE OF EXAM: 04/08/2017 COMPARISON: NONE HISTORY: Abdominal pain TECHNIQUE: One view abdominal series FINDINGS: The osseous structures are intact. The bowel gas pattern is nonspecific. Postsurgical changes are no kolby. There is degenerative change of the spine. Epicardial lead noted. There are scattered air-fluid levels. Arthropathy of the hips. Vascular calcifications noted.. IMPRESSION: 1. Nonspecific abdomen. Scattered air-fluid levels can be seen with an ileus or enteritis correlate clinically.
[2017-04-08 14:21] LABS: Troponin I 0.045 ng/mL (0.000-0.034)
--- NOTE | 2017-04-08 15:15 | US ---
EXAMINATION TYPE: US venous doppler duplex LE DATE OF EXAM: 04/08/2017 2:49 PM COMPARISON: NONE CLINICAL HISTORY: Pain. Restless left leg. Edema bilateral legs, worse on the left. Patient on blood thinner - AFIB SIDE PERFORMED: Bilateral TECHNIQUE: The lower extremity deep venous system is examined utilizing real time linear array sonog reina with graded compression, doppler sonography and color-flow sonography. VESSELS IMAGED: External Iliac Vein (EIV) Common Femoral Vein Deep Femoral Vein Greater Saphenous Vein * Femoral Vein Popliteal Vein Small Saphenous Vein * Proximal Calf Veins (* superficial vessels) Right Leg: No evidence of acute DVT Left Leg: No evidence of acute DVT IMPRESSION: 1. No diagnostic evidence of DVT as visualized.
[2017-04-08] MEDS ORDERED: HYDROmorphone 1 MG/ML 1 ML SYRINGE IVP PRN ×2 (15:42)
[2017-04-08] MEDS ORDERED: ACETAMINOPHEN TAB 325 MG TAB PO PRN (15:42)
[2017-04-08] MEDS ORDERED: NALOXONE 0.4 MG/ML 1 ML VIAL IV PRN (15:42)
[2017-04-08] MEDS ORDERED: guaiFENesin 600 MG TABLET.ER PO PRN (15:45)
[2017-04-08] MEDS: FERROUS SULFATE 325 MG TAB PO SCH (18:11)
[2017-04-08] MEDS: glipiZIDE 5 MG TAB PO SCH (18:12)
[2017-04-08] MEDS: VIT A,C & E-LUTEIN-MINERALS 1 EACH TAB PO SCH (18:12)
--- NOTE | 2017-04-08 18:36 | HP ---
HISTORY AND PHYSICAL CHIEF COMPLAINT: 86-year-old white male came to the hospital with dehydration, acute on chronic renal insufficiency, and weakness. He has had colon cancer removal in November of this year. His has had some moderate significant diarrhea since then and increasing abdominal pain. Pain also in his calf for which ultrasound was negative for DVT. He has had no fever, chills. HOME MEDICATIONS: Include Rocaltrol, Lanoxin, Lasix, Synthroid, Cozaar, Lopressor, K-Tab, Zocor, Glucotrol, Lac-Hydrin, Xeloda, Feosol, omeprazole, MiraLAX, Mucinex. ALLERGIES: Negative. REVIEW OF SYSTEMS: Fourteen point review of systems negative except for integument, he has some sores in his mouth. He has diffuse rashes secondary to chemotherapy. Cardiovascular: He has had elevated troponin in the ER. Psych negative. Neuro: Negative. 14 point review of systems negative except for mentioned in HPI. PAST MEDICAL HISTORY: Atrial fibrillation, colon cancer on oral chemotherapy with possible side effects secondary to stomatitis and dermatitis, diabetes mellitus, GERD, dyslipidemia, hypertension, pneumonia, hypothyroidism, history of left pleural effusion with left VATS procedure, type 2 diabetes mellitus, hyperthyroidism with thyroidectomy, vertigo, hiatal hernia, chronic sinus issues, peripheral edema, skin cancer removal, colon cancer, cholecystectomy, CABG, hypothyroidism. SOCIAL HISTORY: No smoking. No alcohol. No illicit drugs. PHYSICAL EXAMINATION: Well nourished, obese. He has poor skin turgor, dry mucous membranes. Vital signs are reviewed. Ophthalmologic: Pupils equal, round, reactive. Neck is supple. Trachea midline. No thyroid mass. Heart regular rate and rhythm. Lungs show no rales, rhonchi, or wheeze. Fair breath sounds. Some tachypnea. Abdomen is mild tenderness right upper quadrant. Extremities: Tenderness of bilateral calves, worse on the left side. Mild swelling on the left. Normal muscle function. Neurologic: Cranial nerves appear to be intact. Skin dry mucous membranes as mentioned, some erythema diffuse during the palms. Psych: Fair mood and affect. T-max 97, pulse is 60s to low 100s, respiratory 18 to 22, blood pressure 110 to 125 over 50s to 70s, O2 95 to 99%. LABORATORY DATA: Chest x-ray shows left pleural effusion. Abdominal x-ray is negative. CT to rule out PEs cannot be done due to worsening kidney function with BUN and creatinine up to 2.2 and the creatinine function, is on Eliquis so low down pulmonary embolism at this time. He is on Eliquis. He has elevated troponin. Cardiology will be consulted. Dr. Berrios will be consulted for acute on chronic renal insufficiency secondary chemo stomatitis dermatitis secondary chemo, dehydration. Slow fluid rehydration will be done. Acute chemotherapy and adverse reactions. Please see further orders in the chart. MMODL / IJN: [id number] /
[2017-04-08 20:17] LABS: Creatine Kinase MB 1.9 ng/mL (0.0-2.4)
[2017-04-08 20:19] LABS: Troponin I 0.037 ng/mL (0.000-0.034)
[2017-04-08 20:55] LABS: Glucose,Whole Blood 132 mg/dL (75-99)
[2017-04-08] MEDS: APIXABAN 2.5 MG TABLET PO SCH (21:50)
[2017-04-08] MEDS: ARTIFICIAL TEARS-HYPROMELLOSE DROPS 15 ML BTL BOTH EYES SCH (21:50)
[2017-04-08] MEDS: AMMONIUM LACTATE 12% CREAM 140 GM TUBE TOPICAL SCH (21:50)
[2017-04-08] MEDS: ATORVASTATIN 20 MG TAB PO SCH (21:50)
[2017-04-08] MEDS: METOPROLOL TARTRATE 50 MG TAB PO SCH (21:51)
[2017-04-09 01:32] LABS: Creatine Kinase MB 2.2 ng/mL (0.0-2.4)
[2017-04-09 01:42] LABS: Troponin I 0.041 ng/mL (0.000-0.034)
[2017-04-09 05:44] LABS: Glucose,Whole Blood 94 mg/dL (75-99)
[2017-04-09] MEDS: LEVOTHYROXINE 75 MCG TAB PO SCH (06:11)
[2017-04-09] MEDS: glipiZIDE 5 MG TAB PO SCH ×2 (06:11→17:33)
[2017-04-09 06:26] LABS: Anisocytosis Moderate; Basophils % (A) 0 %; CH 27.9; CHCM 31.6; Eosinophils # (A) 0.1 k/uL (0-0.7); Eosinophils % (A) 4 %; HCT 33.4 % (39.0-53.0); HDW 2.26; HGB 10.5 gm/dL (13.0-17.5); Luc # (Auto) 0.03; Luc % (Auto) 1; Lymphocytes # (A) 0.7 k/uL (1.0-4.8); Lymphocytes % (A) 19 %; MCH 27.8 pg (25.0-35.0); MCHC 31.3 g/dL (31.0-37.0); MCV 88.8 fL (80.0-100.0); Macrocytosis Slight; Monocytes # (A) 0.1 k/uL (0-1.0); Monocytes % (A) 2 %; Neutrophils # (A) 2.8 k/uL (1.3-7.7); Neutrophils % (A) 75 %; RBC 3.76 m/uL (4.30-5.90); RDW 22.4 % (11.5-15.5); WBC 3.8 k/uL (3.8-10.6); WBC (Perox) 4.14
[2017-04-09 06:38] LABS: Calcium 8.4 mg/dL (8.4-10.2); Potassium 3.5 mmol/L (3.5-5.1)
[2017-04-09] MEDS: AMMONIUM LACTATE 12% CREAM 140 GM TUBE TOPICAL SCH ×2 (08:16→20:55)
[2017-04-09] MEDS: PANTOPRAZOLE 40 MG/10 ML VIAL IV SCH (08:16)
[2017-04-09] MEDS: MAG HYDROX/AL HYDROX/SIMETH 30 ML, LIDOCAINE VISCOUS 30 ML, diphenhydrAMINE ELIXIR 75 M... PO SCH ×8 (08:16→16:08)
[2017-04-09] MEDS: ARTIFICIAL TEARS-HYPROMELLOSE DROPS 15 ML BTL BOTH EYES SCH ×2 (08:17→20:55)
[2017-04-09] MEDS: DIGOXIN 125 MCG TAB PO SCH (08:17)
[2017-04-09] MEDS: APIXABAN 2.5 MG TABLET PO SCH ×2 (08:17→20:54)
[2017-04-09] MEDS: METOPROLOL TARTRATE 50 MG TAB PO SCH ×2 (08:18→20:55)
[2017-04-09] MEDS: CALCITRIOL 0.25 MCG CAP PO SCH (08:18)
[2017-04-09] MEDS: methylPREDNISolone SOD SUCCI 125 MG/2 ML VIAL IV SCH ×3 (08:19→23:41)
[2017-04-09] MEDS ORDERED: LOSARTAN 50 MG TAB PO SCH (09:00)
--- NOTE | 2017-04-09 09:43 | CONS ---
CONSULTATION CHIEF COMPLAINT: Elevated troponin. Bernardo is an 86-year-old gentleman with history of coronary artery disease, status post CABG, carcinoma of the colon status post colon resection and chemotherapy, chronic atrial fibrillation, hypertension, dyslipidemia, and diabetes, who presented to hospital primarily with symptoms of peripheral neuropathy and excoriation of the skin and stomatitis, probably all related to the chemotherapy. At admission, they found that his BUN and creatinine are elevated, hence he comes in with a diagnosis of acute kidney injury. Cardiology had been consulted because of asymptomatic elevation of the troponin. His EKG shows atrial fibrillation with controlled ventricular rate and nonspecific ST-T wave changes. Troponins are at 0.05, 0.03, and 0.04. All related to the underlying renal failure. Patient does not have any chest pain, does not have any shortness of breath and denies leg edema. PAST MEDICAL HISTORY: Significant for coronary artery disease, status post CABG, [id number] diabetes, hypertension, dyslipidemia, hypothyroidism, and chronic atrial fibrillation. CURRENT MEDICATIONS: Include Eliquis 2.5 b.i.d., Rocaltrol, Lanoxin 0.125 q. daily, Lasix 40 mg daily, Synthroid, losartan, Lopressor 50 b.i.d., omeprazole, Glucotrol, K-Dur. ALLERGIES: No known drug allergies. FAMILY HISTORY: Negative for premature coronary artery disease. SOCIAL HISTORY: Negative for current smoking, ETOH abuse or drug abuse. REVIEW OF SYSTEMS: HEENT is significant for stomatitis, stomatitis. CARDIAC: Negative. RESPIRATORY: Negative. GI: Significant for history of colon cancer. PSYCHOSOCIAL: Negative. ENDOCRINE: Negative. DERMATOLOGICAL: Significant for excoriation of the skin and erythema related to his chemotherapy. TITLE I DIRECTOR: Negative. Rest of the system review is not relevant. On exam, he appears comfortable at rest. Heart rate is 80 beats per minute. Blood pressure is 97/59, respiratory rate is 18. Chest exam reveals good air entry bilaterally, I do not hear any crackles or rhonchi. Heart exam reveals first and second heart sounds, no gallop. There is an ejection systolic murmur in the aortic area. Abdomen is soft. Exam of extremities revealed erythema and excoriation of the skin over the upper extremities. Trace edema over the lower extremities. Peripheral pulses are palpable. Echocardiogram shows an ejection fraction of 40% to 45% with mild aortic stenosis. ASSESSMENT: 1. Elevated troponin probably related to the renal insufficiency. 2. Acute renal failure. 3. Chronic atrial fibrillation with controlled ventricular rate. PLAN: Elevated troponins do not require further evaluation at this time. I am going to review the echocardiogram that has been ordered Will continue the patient on current medications for rate control, anticoagulation. Decrease the dose of losartan to 25 mg daily and continue the Lipitor that he is on. Anticipate he is going home over the next 24 hours. TIM / GISELE: [id number] /
[2017-04-09 11:07] LABS: Glucose,Whole Blood 168 mg/dL (75-99)
[2017-04-09] MEDS: VIT A,C & E-LUTEIN-MINERALS 1 EACH TAB PO SCH ×2 (11:29→17:33)
[2017-04-09] MEDS: FERROUS SULFATE 325 MG TAB PO SCH ×2 (11:29→17:33)
--- NOTE | 2017-04-09 13:05 | P.GSCN ---
History of Present Illness Consult date: 04/09/17 Reason for Consult: Diarrhea, GI bleed History of present illness: This a 86-year-old male well-known to myself. The patient has a recent diagnosis of colon cancer. He underwent right colectomy several months ago. He is currently being treated with chemotherapy. Patient developed a reaction. He's had problems with some diarrhea and minimal rectal bleeding. He is unable to swallow anything significant. He is currently on clear liquids. 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 AND NO FURTHER PROBLEMS, PUD, ANEMIA, NIDDM TYPE II, HYPERTHYROID WITH THYROIDECTOMY, VERTIGO AT TIMES, HIATAL HERNIA, SINUS PROBLEMS AT TIMES, OCCASIONAL BACK PAIN, PERIPHERAL EDEMA, SKIN CANCER WITH REMOVAL, colon CA-oral chemo History of Any Multi-Drug Resistant Organisms: None Reported Past Surgical History: Cholecystectomy, Coronary Bypass/CABG, Heart Catheterization Additional Past Surgical History / Comment(s): thyroidectomy, rt colectomy, ventral hernia repair, 5 vessel cabg,egd/colonoscopy, cataracats, rt knee arthroscopy, lt vat/decortication, skin gratf lt hand r/t non healing wound, skin cancer removed, sx for undescended testicle Past Anesthesia/Blood Transfusion Reactions: No Reported Reaction Additional Past Anesthesia/Blood Transfusion Reaction / Comm: PT HAS RECEIVED BLOOD IN PAST WITHOUT REACTION. Smoking Status: Former smoker - Past Family History Father Family Medical History: No Reported History Additional Family Medical History / Comment(s): FATHER AT THE AGE OF 102YRS. Mother Family Medical History: No Reported History Additional Family Medical History / Comment(s): MOTHER HAD HEART PROBLEMS. SHE AT THE AGE OF 97RS.. pt's dad at age 102 from foot infection/sepsis Medications and Allergies Home Medications Medication Instructions Recorded Confirmed Type Calcitriol [Rocaltrol] 0.25 mcg PO DAILY 01/03/15 04/08/17 History Digoxin [Lanoxin] 125 mcg PO QAM 01/03/15 04/08/17 History Furosemide [Lasix] 40 mg PO DAILY 01/03/15 04/08/17 History Levothyroxine Sodium [Synthroid] 150 mcg PO QAM 01/03/15 04/08/17 History Losartan [Cozaar] 50 mg PO QAM 01/03/15 04/08/17 History Metoprolol Tartrate [Lopressor] 50 mg PO BID 01/03/15 04/08/17 History Potassium Chloride [K-Tab ER] 20 meq PO DAILY 01/03/15 04/08/17 History Simvastatin [Zocor] 40 mg PO HS 01/03/15 04/08/17 History glipiZIDE [Glucotrol] 5 mg PO AC-BID 01/03/15 04/08/17 History Apixaban [Eliquis] 2.5 mg PO BID #60 tab 12/01/16 04/08/17 Rx Ammonium Lactate Cream [Lac-Hydrin 1 applic TOPICAL BID 04/08/17 04/08/17 History 12% Cream] Artificial Tears-Hypromellose 1 drops BOTH EYES BID 04/08/17 04/08/17 History [Artificial Tear Drops] Capecitabine [Xeloda] 2,500 mg PO BID 04/08/17 04/08/17 History Ferrous Sulfate [Feosol] 325 mg PO BID 04/08/17 04/08/17 History Omeprazole 20 mg PO BID 04/08/17 04/08/17 History Polyethylene Glycol 3350 [Miralax] 17 gm PO DAILY 04/08/17 04/08/17 History Vit C/E/Zn/Coppr/Lutein/Zeaxan 1 cap PO BID 04/08/17 04/08/17 History [Preservision Areds 2 Softgel] guaiFENesin [Mucinex] 600 mg PO Q12H PRN 04/08/17 04/08/17 History Allergies Allergy/AdvReac Type Severity Reaction Status Date / Time No Known Allergies Allergy Verified 04/08/17 14:28 Surgical - Exam Vital Signs Temp Pulse Resp BP Pulse Ox 97.2 F L 68 18 118/55 99 04/08/17 12:08 04/08/17 12:08 04/08/17 12:08 04/08/17 12:08 04/08/17 12:08 - General well developed, no distress - Eyes PERRL - ENT normal pinna - Neck no masses - Respiratory normal expansion - Cardiovascular Rhythm: regular - Abdomen Abdomen: soft, non tender Results - Labs 04/09/17 05:36 04/09/17 05:36 Abnormal Lab Results - Last 24 Hours (Table) 04/08/17 04/08/17 04/08/17 Range/Units 13:30 13:30 13:30 RBC (4.30-5.90) m/uL Hgb 12.2 L (13.0-17.5) gm/dL Hct 38.1 L (39.0-53.0) % RDW 22.5 H (11.5-15.5) % Plt Count (150-450) k/uL Lymphocytes # (1.0-4.8) k/uL PT (9.0-12.0) sec INR (<1.2) D-Dimer (<0.60) mg/L FEU Sodium 136 L (137-145) mmol/L Chloride (98-107) mmol/L Carbon Dioxide 19 L (22-30) mmol/L BUN 59 H (9-20) mg/dL Creatinine 2.32 H (0.66-1.25) mg/dL Glucose 166 H (74-99) mg/dL POC Glucose (mg/dL) (75-99) mg/dL Total Creatine Kinase 43 L (55-170) U/L Troponin I 0.045 H* (0.000-0.034) ng/mL 04/08/17 04/08/17 04/08/17 Range/Units 13:30 19:24 20:52 RBC (4.30-5.90) m/uL Hgb (13.0-17.5) gm/dL Hct (39.0-53.0) % RDW (11.5-15.5) % Plt Count (150-450) k/uL Lymphocytes # (1.0-4.8) k/uL PT 12.6 H (9.0-12.0) sec INR 1.3 H (<1.2) D-Dimer 1.16 H (<0.60) mg/L FEU Sodium (137-145) mmol/L Chloride (98-107) mmol/L Carbon Dioxide (22-30) mmol/L BUN (9-20) mg/dL Creatinine (0.66-1.25) mg/dL Glucose (74-99) mg/dL POC Glucose (mg/dL) 132 H (75-99) mg/dL Total Creatine Kinase 49 L (55-170) U/L Troponin I 0.037 H* (0.000-0.034) ng/mL 04/09/17 04/09/17 04/09/17 Range/Units 00:46 05:36 05:36 RBC 3.76 L (4.30-5.90) m/uL Hgb 10.5 L (13.0-17.5) gm/dL Hct 33.4 L (39.0-53.0) % RDW 22.4 H (11.5-15.5) % Plt Count 139 L (150-450) k/uL Lymphocytes # 0.7 L (1.0-4.8) k/uL PT (9.0-12.0) sec INR (<1.2) D-Dimer (<0.60) mg/L FEU Sodium (137-145) mmol/L Chloride 111 H (98-107) mmol/L Carbon Dioxide 18 L (22-30) mmol/L BUN 51 H (9-20) mg/dL Creatinine 1.80 H (0.66-1.25) mg/dL Glucose (74-99) mg/dL POC Glucose (mg/dL) (75-99) mg/dL Total Creatine Kinase (55-170) U/L Troponin I 0.041 H* (0.000-0.034) ng/mL 04/09/17 Range/Units 11:05 RBC (4.30-5.90) m/uL Hgb (13.0-17.5) gm/dL Hct (39.0-53.0) % RDW (11.5-15.5) % Plt Count (150-450) k/uL Lymphocytes # (1.0-4.8) k/uL PT (9.0-12.0) sec INR (<1.2) D-Dimer (<0.60) mg/L FEU Sodium (137-145) mmol/L Chloride (98-107) mmol/L Carbon Dioxide (22-30) mmol/L BUN (9-20) mg/dL Creatinine (0.66-1.25) mg/dL Glucose (74-99) mg/dL POC Glucose (mg/dL) 168 H (75-99) mg/dL Total Creatine Kinase (55-170) U/L Troponin I (0.000-0.034) ng/mL Diabetes panel 04/08/17 04/09/17 Range/Units 13:30 05:36 Sodium 136 L 139 (137-145) mmol/L Potassium 4.1 3.5 (3.5-5.1) mmol/L Chloride 104 111 H (98-107) mmol/L Carbon Dioxide 19 L 18 L (22-30) mmol/L BUN 59 H 51 H (9-20) mg/dL Creatinine 2.32 H 1.80 H (0.66-1.25) mg/dL Glucose 166 H 98 (74-99) mg/dL Calcium 9.8 8.4 (8.4-10.2) mg/dL AST 21 (17-59) U/L ALT 24 (21-72) U/L Alkaline Phosphatase 74 (38-126) U/L Total Protein 7.0 (6.3-8.2) g/dL Albumin 3.8 (3.5-5.0) g/dL Calcium panel 04/08/17 04/09/17 Range/Units 13:30 05:36 Calcium 9.8 8.4 (8.4-10.2) mg/dL Albumin 3.8 (3.5-5.0) g/dL Pituitary panel 04/08/17 04/09/17 Range/Units 13:30 05:36 Sodium 136 L 139 (137-145) mmol/L Potassium 4.1 3.5 (3.5-5.1) mmol/L Chloride 104 111 H (98-107) mmol/L Carbon Dioxide 19 L 18 L (22-30) mmol/L BUN 59 H 51 H (9-20) mg/dL Creatinine 2.32 H 1.80 H (0.66-1.25) mg/dL Glucose 166 H 98 (74-99) mg/dL Calcium 9.8 8.4 (8.4-10.2) mg/dL Adrenal panel 04/08/17 04/09/17 Range/Units 13:30 05:36 Sodium 136 L 139 (137-145) mmol/L Potassium 4.1 3.5 (3.5-5.1) mmol/L Chloride 104 111 H (98-107) mmol/L Carbon Dioxide 19 L 18 L (22-30) mmol/L BUN 59 H 51 H (9-20) mg/dL Creatinine 2.32 H 1.80 H (0.66-1.25) mg/dL Glucose 166 H 98 (74-99) mg/dL Calcium 9.8 8.4 (8.4-10.2) mg/dL Total Bilirubin 1.1 (0.2-1.3) mg/dL AST 21 (17-59) U/L ALT 24 (21-72) U/L Alkaline Phosphatase 74 (38-126) U/L Total Protein 7.0 (6.3-8.2) g/dL Albumin 3.8 (3.5-5.0) g/dL Assessment and Plan Assessment: Colon cancer with probable mild enteritis related to chemotherapy. Patient will be observed. We'll continue supportive care and advance his diet as tolerated.
--- NOTE | 2017-04-09 14:27 | ECHOF ---
Referral Reason:abn trop MEASUREMENTS -------- HEIGHT: 180.3 cm WEIGHT: 92.1 kg BP: IVSd: 1.6 cm (0.6 - 1.1) LVIDd: 4.7 cm (3.9 - 5.3) LVPWd: 1.8 cm (0.6 - 1.1) IVSs: 2.3 cm LVIDs: 2.3 cm LVPWs: 2.6 cm LAESV Index (A-L): 37.11 ml/m Ao Diam: 3.4 cm (2.0 - 3.7) AV Cusp: 1.3 cm (1.5 - 2.6) LA Diam: 4.8 cm (2.7 - 3.8) MV EXCURSION: 17.007 mm (> 18.000) MV EF SLOPE: 134 mm/s (70 - 150) EPSS: 1.1 cm MV E Noé: 1.02 m/s MV DecT: 262 ms MV A Noé: 0.36 m/s MV E/A Ratio: 2.83 AV maxP.70 mmHg AV meanP.86 mmHg RAP: 5.00 mmHg RVSP: 13.38 mmHg FINDINGS -------- Atrial fibrillation. This was a technically good study. The left ventricular size is normal. There is severe concentric left ventricular hypertrophy. Ove rall left ventricular systolic function is low-normal with, an EF between 50 - 55 %. There is parad oxical/dysynergic septal motion consistent with post-operative status. The right ventricle is normal in size and function. LA is moderately dilated 34-39 ml/m2 The right atrium is normal in size. Aortic valve is trileaflet and is mildly thickened. There is mild aortic stenosis present. Peak/m sienna gradient across the Aortic Valve is 16.70mmHg / 9.86mmHg. The mitral valve leaflets are mildly thickened. Mild mitral regurgitation is present. Mild tricuspid regurgitation present. The right ventricular systolic pressure, as measured by Doppl er, is 13.38mmHg. Pulmonic valve appears structurally normal. The aortic root size is normal. The pericardium is normal. CONCLUSIONS -------- 1. Atrial fibrillation. 2. This was a technically good study. 3. The left ventricular size is normal. 4. There is severe concentric left ventricular hypertrophy. 5. Overall left ventricular systolic function is low-normal with, an EF between 50 - 55 %. 6. There is paradoxical/dysynergic septal motion consistent with post-operative status. 7. The right ventricle is normal in size and function. 8. LA is moderately dilated 34-39 ml/m2 9. The right atrium is normal in size. 10. Aortic valve is trileaflet and is mildly thickened. 11. There is mild aortic stenosis present. 12. Peak/mean gradient across the Aortic Valve is 16.70mmHg / 9.86mmHg. 13. The mitral valve leaflets are mildly thickened. 14. Mild mitral regurgitation is present. 15. Mild tricuspid regurgitation present. 16. The right ventricular systolic pressure, as measured by Doppler, is 13.38mmHg. 17. Pulmonic valve appears structurally normal. 18. The aortic root size is normal. 19. The pericardium is normal. TYPE PROOF REPRODUCER: Delia Thorne RDCS
[2017-04-09 16:06] LABS: Glucose,Whole Blood 283 mg/dL (75-99)
--- NOTE | 2017-04-09 17:50 | P.CONS ---
History of Present Illness - Reason for Consult Consult date: 04/09/17 severe mucositis and diarrhea due to chemotherapy - History of Present Illness Mister Fowler is an 86-year-old white male, well-known to myself. He had been complaining of passage of blood in his stool off and on for several months, leading to colonoscopy in early 01/06. This showed new obstructing right colon cancer. The patient had a right colectomy on 01/02/17 along with a partial omentectomy. 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 In addition at least one noncontiguous tumor deposit was noted in the serosa. The omentum was benign. Postsurgery the patient did have an episode of hypotension and atrial fibrillation for which he was transiently in the ICU. this did resolve fairly quickly. His postop course was otherwise uneventful. Based on his stage, and good PS, adjuvant Xeloda was recommended. He started the same on 03/06/17. The patient tolerated cycle 1 quite well. He then started cycle 2 and was supposed to complete his 2 weeks within the next couple of days. However over the last 2-3 days, he developed progressively severe and painful mouth sores, making it difficult for him to eat. He also developed frequent and loose bowel movements with abdominal cramping. He also noted fairly rapid onset and progression of redness and tenderness in his hands over the same period of time. He therefore came in to the hospital, and was admitted for further management. Review of Systems Constitutional: Reports poor appetite, Reports weakness Eyes: denies blurred vision, denies pain Ears: deny: decreased hearing, ear discharge, earache, tinnitus Ears, nose, mouth and throat: Reports as per HPI (severe mouth and lip ulceration, and inflammation), Reports mouth pain, Reports odynophagia Cardiovascular: Reports dyspnea on exertion Respiratory: Denies cough Gastrointestinal: Reports diarrhea, Reports loss of appetite Genitourinary: Reports urinary frequency Musculoskeletal: Reports muscle weakness Integumentary: Reports color changes, Reports rash (reddish, confluent, bilateral hands extending up the forearms) Neurological: Reports weakness Psychiatric: Denies anxiety, Denies depression Endocrine: Reports fatigue Hematologic/Lymphatic: Reports as per HPI 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 AND NO FURTHER PROBLEMS, PUD, ANEMIA, NIDDM TYPE II, HYPERTHYROID WITH THYROIDECTOMY, VERTIGO AT TIMES, HIATAL HERNIA, SINUS PROBLEMS AT TIMES, OCCASIONAL BACK PAIN, PERIPHERAL EDEMA, SKIN CANCER WITH REMOVAL, colon CA-oral chemo History of Any Multi-Drug Resistant Organisms: None Reported Past Surgical History: Cholecystectomy, Coronary Bypass/CABG, Heart Catheterization Additional Past Surgical History / Comment(s): thyroidectomy, rt colectomy, ventral hernia repair, 5 vessel cabg,egd/colonoscopy, cataracats, rt knee arthroscopy, lt vat/decortication, skin gratf lt hand r/t non healing wound, skin cancer removed, sx for undescended testicle Past Anesthesia/Blood Transfusion Reactions: No Reported Reaction Additional Past Anesthesia/Blood Transfusion Reaction / Comm: PT HAS RECEIVED BLOOD IN PAST WITHOUT REACTION. Smoking Status: Former smoker - Past Family History Father Family Medical History: No Reported History Additional Family Medical History / Comment(s): FATHER AT THE AGE OF 102YRS. Mother Family Medical History: No Reported History Additional Family Medical History / Comment(s): MOTHER HAD HEART PROBLEMS. SHE AT THE AGE OF 97RS.. pt's dad at age 102 from foot infection/sepsis Medications and Allergies Home Medications Medication Instructions Recorded Confirmed Type Calcitriol [Rocaltrol] 0.25 mcg PO DAILY 01/03/15 04/08/17 History Digoxin [Lanoxin] 125 mcg PO QAM 01/03/15 04/08/17 History Furosemide [Lasix] 40 mg PO DAILY 01/03/15 04/08/17 History Levothyroxine Sodium [Synthroid] 150 mcg PO QAM 01/03/15 04/08/17 History Losartan [Cozaar] 50 mg PO QAM 01/03/15 04/08/17 History Metoprolol Tartrate [Lopressor] 50 mg PO BID 01/03/15 04/08/17 History Potassium Chloride [K-Tab ER] 20 meq PO DAILY 01/03/15 04/08/17 History Simvastatin [Zocor] 40 mg PO HS 01/03/15 04/08/17 History glipiZIDE [Glucotrol] 5 mg PO AC-BID 01/03/15 04/08/17 History Apixaban [Eliquis] 2.5 mg PO BID #60 tab 12/01/16 04/08/17 Rx Ammonium Lactate Cream [Lac-Hydrin 1 applic TOPICAL BID 04/08/17 04/08/17 History 12% Cream] Artificial Tears-Hypromellose 1 drops BOTH EYES BID 04/08/17 04/08/17 History [Artificial Tear Drops] Capecitabine [Xeloda] 2,500 mg PO BID 04/08/17 04/08/17 History Ferrous Sulfate [Feosol] 325 mg PO BID 04/08/17 04/08/17 History Omeprazole 20 mg PO BID 04/08/17 04/08/17 History Polyethylene Glycol 3350 [Miralax] 17 gm PO DAILY 04/08/17 04/08/17 History Vit C/E/Zn/Coppr/Lutein/Zeaxan 1 cap PO BID 04/08/17 04/08/17 History [Preservision Areds 2 Softgel] guaiFENesin [Mucinex] 600 mg PO Q12H PRN 04/08/17 04/08/17 History Allergies Allergy/AdvReac Type Severity Reaction Status Date / Time No Known Allergies Allergy Verified 04/08/17 14:28 Physical Exam Vitals: Vital Signs Temp Pulse Resp BP BP Pulse Ox 04/09/17 11:35 88 14 04/09/17 11:25 97.6 F 88 14 120/71 95 04/09/17 08:00 97.6 F 84 14 130/61 100 04/09/17 04:00 97.2 F L 83 12 97/59 04/09/17 00:00 96.4 F L 76 12 103/62 98 04/08/17 23:29 90 04/08/17 20:00 96.1 F L 90 12 142/68 100 04/08/17 18:41 90 04/08/17 18:18 96.2 F L 90 18 149/65 100 Intake and Output 04/09/17 04/09/17 04/09/17 06:59 14:59 22:59 Intake Total 400 600 Output Total 427 172 8324 Balance 100 200 -1200 Intake: Intake, IV Titration 300 Amount Sodium Chloride 0.9% 1, 300 000 ml @ 100 mls/hr IV . Q10H STA Rx#:[id number] Oral 100 600 Output: Urine 467 037 0932 Other: Voiding Method Toilet Urinal # Voids 2 # Bowel Movements 0 Weight 92.3 kg 92.3 kg Patient Weight 04/10/17 06:59 Weight 92.3 kg - Constitutional General appearance: mild distress - EENT severe mucositis affecting the lower lip and the whole of the oropharynx and tongue. Necrosis and desquamation noted on the lips, as well as scattered through the oropharynx. Eyes: EOMI, PERRLA ENT: hearing grossly normal - Neck Neck: no lymphadenopathy Thyroid: bilateral: normal size - Respiratory Respiratory: bilateral: CTA - Cardiovascular Rhythm: regular Heart sounds: normal: S1, S2 - Gastrointestinal General gastrointestinal: normal bowel sounds, soft Localized gastrointestinal: tender: diffuse (mild) - Integumentary Integumentary: calor, rash (confluent, reddish rash, with mild superficial ulcers and cracking, involving both hands, extending up into the forearm region) - Neurologic Neurologic: CNII-XII intact - Musculoskeletal Musculoskeletal: generalized weakness, strength equal bilaterally - Psychiatric Psychiatric: A&O x's 3, appropriate affect Results CBC & Chem 7: 04/09/17 05:36 04/09/17 05:36 Labs: Abnormal Lab Results - Last 24 Hours (Table) 04/08/17 04/08/17 04/09/17 Range/Units 19:24 20:52 00:46 RBC (4.30-5.90) m/uL Hgb (13.0-17.5) gm/dL Hct (39.0-53.0) % RDW (11.5-15.5) % Plt Count (150-450) k/uL Lymphocytes # (1.0-4.8) k/uL Chloride (98-107) mmol/L Carbon Dioxide (22-30) mmol/L BUN (9-20) mg/dL Creatinine (0.66-1.25) mg/dL POC Glucose (mg/dL) 132 H (75-99) mg/dL Total Creatine Kinase 49 L (55-170) U/L Troponin I 0.037 H* 0.041 H* (0.000-0.034) ng/mL 04/09/17 04/09/17 04/09/17 Range/Units 05:36 05:36 11:05 RBC 3.76 L (4.30-5.90) m/uL Hgb 10.5 L (13.0-17.5) gm/dL Hct 33.4 L (39.0-53.0) % RDW 22.4 H (11.5-15.5) % Plt Count 139 L (150-450) k/uL Lymphocytes # 0.7 L (1.0-4.8) k/uL Chloride 111 H (98-107) mmol/L Carbon Dioxide 18 L (22-30) mmol/L BUN 51 H (9-20) mg/dL Creatinine 1.80 H (0.66-1.25) mg/dL POC Glucose (mg/dL) 168 H (75-99) mg/dL Total Creatine Kinase (55-170) U/L Troponin I (0.000-0.034) ng/mL 04/09/17 Range/Units 16:04 RBC (4.30-5.90) m/uL Hgb (13.0-17.5) gm/dL Hct (39.0-53.0) % RDW (11.5-15.5) % Plt Count (150-450) k/uL Lymphocytes # (1.0-4.8) k/uL Chloride (98-107) mmol/L Carbon Dioxide (22-30) mmol/L BUN (9-20) mg/dL Creatinine (0.66-1.25) mg/dL POC Glucose (mg/dL) 283 H (75-99) mg/dL Total Creatine Kinase (55-170) U/L Troponin I (0.000-0.034) ng/mL Microbiology - Last 24 Hours (Table) 04/08/17 13:30 Blood Culture - Preliminary Blood No Growth after 24 hours Comments: echocardiogram report reviewed Chest x-ray: report reviewed Abdominal x-ray: report reviewed Venous US: report reviewed Assessment and Plan (1) Mucositis due to chemotherapy Narrative/Plan: The patient is presenting with rapid onset of severe mucositis, oral as well as enteral, related to his chemotherapy. As a result oral intake has declined sharply, and the patient has become dehydrated and weak. The main stay of management is holding the chemotherapy, which has been done, and supportive care. The patient is currently on clear liquids. He will need ongoing hydration. Colace solution her Magic mouthwash will be employed. The patient will also need antidiarrheals. Diet will need to be advanced cautiously, once oral mucositis improved and diarrhea slows down. Current Visit: Yes Status: Acute Code(s): K12.31 - ORAL MUCOSITIS ( ULCERATIVE) DUE TO ANTINEOPLASTIC THERAPY SNOMED Code(s): 067952273 (2) Dehydration Narrative/Plan: due to above. Continue IV hydration Current Visit: Yes Status: Acute Code(s): E86.0 - DEHYDRATION SNOMED Code( s): 81038523 (3) Rash Narrative/Plan: this is due to skin toxicity from Xeloda. This is expected to improve, with holding of the chemotherapy. he was advised to use moisturizing cream aggressively. At this time, there is no evidence of infection Current Visit: Yes Status: Acute Code(s): R21 - RASH AND OTHER NONSPECIFIC SKIN ERUPTION SNOMED Code(s): 657878553 (4) Colon cancer Narrative/Plan: The patient is currently on adjuvant Xeloda for his resected colon cancer. He tolerated cycle 1 quite well, but has had major side effects, with rapid onset, with cycle 2. This raises the possibility of DPD deficiency. The patient will continue to be off chemotherapy, until his acute symptoms resolved. Depending on his wishes at that time, we may consider re-challenging with major dose reduction. Current Visit: Yes Status: Acute Code(s): C18.9 - MALIGNANT NEOPLASM OF COLON, UNSPECIFIED SNOMED Code(s): 596521095
[2017-04-09] MEDS: ATORVASTATIN 20 MG TAB PO SCH (20:54)
[2017-04-09] MEDS: MAG HYDROX/AL HYDROX/SIMETH 30 ML, diphenhydrAMINE ELIXIR 75 MG, LIDOCAINE VISCOUS 30 ML PO SCH ×6 (21:01→22:48)
[2017-04-09 21:18] LABS: Glucose,Whole Blood 290 mg/dL (75-99)
[2017-04-09] MEDS: DIPHENOX-ATROP 2.5-0.025 MG 1 EACH TAB PO SCH (22:47)
[2017-04-10 06:13] LABS: Anisocytosis Moderate; Basophils % (A) 0 %; CH 27.2; CHCM 31.4; Eosinophils # (A) 0.1 k/uL (0-0.7); Eosinophils % (A) 1 %; HCT 32.8 % (39.0-53.0); HDW 2.35; HGB 10.6 gm/dL (13.0-17.5); Luc # (Auto) 0; Luc % (Auto) 0; Lymphocytes # (A) 0.7 k/uL (1.0-4.8); Lymphocytes % (A) 10 %; MCHC 32.2 g/dL (31.0-37.0); MCV 86.8 fL (80.0-100.0); Macrocytosis Slight; Mean Platelet Volume 7.3; Monocytes % (A) 1 %; Neutrophils # (A) 5.8 k/uL (1.3-7.7); Neutrophils % (A) 88 %; RBC 3.78 m/uL (4.30-5.90); RDW 21.9 % (11.5-15.5); WBC 6.6 k/uL (3.8-10.6)
[2017-04-10 06:22] LABS: Calcium 8.8 mg/dL (8.4-10.2); Potassium 3.8 mmol/L (3.5-5.1); Total Bilirubin 0.5 mg/dL (0.2-1.3); Total Protein 5.8 g/dL (6.3-8.2)
[2017-04-10 06:27] LABS: Glucose,Whole Blood 181 mg/dL (75-99)
[2017-04-10] MEDS: LEVOTHYROXINE 75 MCG TAB PO SCH (06:59)
[2017-04-10] MEDS: glipiZIDE 5 MG TAB PO SCH ×2 (07:00→17:15)
[2017-04-10] MEDS: methylPREDNISolone SOD SUCCI 125 MG/2 ML VIAL IV SCH ×3 (07:56→23:39)
[2017-04-10] MEDS: LOSARTAN 25 MG TAB PO SCH (07:57)
[2017-04-10] MEDS: APIXABAN 2.5 MG TABLET PO SCH ×2 (07:57→22:15)
[2017-04-10] MEDS: ARTIFICIAL TEARS-HYPROMELLOSE DROPS 15 ML BTL BOTH EYES SCH ×2 (07:57→22:16)
[2017-04-10] MEDS: CALCITRIOL 0.25 MCG CAP PO SCH (07:58)
[2017-04-10] MEDS: DIGOXIN 125 MCG TAB PO SCH (07:58)
[2017-04-10] MEDS: MAG HYDROX/AL HYDROX/SIMETH 30 ML, diphenhydrAMINE ELIXIR 75 MG, LIDOCAINE VISCOUS 30 ML PO SCH ×12 (07:59→22:16)
[2017-04-10] MEDS: PANTOPRAZOLE 40 MG/10 ML VIAL IV SCH (07:59)
[2017-04-10] MEDS: AMMONIUM LACTATE 12% CREAM 140 GM TUBE TOPICAL SCH ×2 (08:00→21:55)
[2017-04-10] MEDS: DIPHENOX-ATROP 2.5-0.025 MG 1 EACH TAB PO SCH ×3 (08:07→22:22)
[2017-04-10] MEDS: METOPROLOL TARTRATE 50 MG TAB PO SCH ×2 (08:07→22:22)
[2017-04-10 11:02] LABS: Appearance,Urine Clear (Clear); Bilirubin,Urine Negative (Negative); Glucose,Urine (UA) Negative (Negative); Ketones,Urine Negative (Negative); Leukocyte Esterase,Urine Negative (Negative); Nitrite,Urine Negative (Negative); Particle Count 1686; Protein,Urine 1+ (Negative); Specific Gravity,Urine 1.017 (1.001-1.035); UA Billing (MACRO vs. MICRO) MICRO; Urobilinogen,Urine <2.0 mg/dL (<2.0); WBC,Urine 1 /hpf (0-5)
[2017-04-10 11:30] LABS: Glucose,Whole Blood 207 mg/dL (75-99)
--- NOTE | 2017-04-10 11:31 | P.PN ---
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 On admission patient was found to have an elevated BUN and creatinine, therefore patient was admitted to the hospital with acute kidney injury. Cardiology consultation was initially requested because of abnormal troponins. His EKG showed atrial fibrillation with a controlled ventricular response and nonspecific ST-T wave changes. Patient was seen in consultation yesterday by Dr. Pack who felt that the troponin abnormality secondary to abnormal renal function. We did repeat an echocardiogram with Doppler study which revealed an ejection fraction of 50-55%. Patient does not have any chest pain or shortness of breath. Hemodynamically stable, blood pressure 115/60 with a heart rate in the 60s to 80s. White blood cell count 6.6, hemoglobin 10.6, platelet count 145. Sodium 138, potassium 3.8, BUN 47, creatinine 1.8. Objective - Vital Signs Vital signs: Vital Signs Temp 96 F L 04/10/17 07:54 Pulse 66 04/10/17 07:54 Resp 18 04/10/17 08:00 BP 115/66 04/10/17 07:54 Pulse Ox 98 04/10/17 07:54 Intake & Output 04/09/17 04/10/17 04/10/17 18:59 06:59 18:59 Intake Total 840 200 420 Output Total 1600 178 300 Balance -760 22 120 Weight 92.3 kg 93 kg Intake: Oral 840 200 420 Output: Urine 1600 300 Post Void Residual 178 Other: Voiding Method Toilet Toilet Toilet Urinal Urinal Urinal - Exam PHYSICAL EXAMINATION: HEENT: Head is atraumatic, normocephalic. Pupils equal, round. Neck is supple. There is no elevated jugular venous pressure. HEART EXAMINATION: Heart S1 and S2 irregularly irregular a systolic murmur is heard. CHEST EXAMINATION: Lungs are clear to auscultation and precussion. No chest wall tenderness is noted on palpation or with deep breathing. ABDOMEN: Soft, nontender. Bowel sounds are heard. No organomegaly noted. EXTREMITIES: 2+ peripheral pulses with trace evidence of peripheral edema to the lower extremities, erythema and excoriation of the skin on the upper extremities noted . NEUROLOGIC patient is awake, alert and oriented -3. . - Labs CBC & Chem 7: 04/10/17 05:23 04/10/17 05:23 Labs: Abnormal Lab Results - Last 24 Hours (Table) 04/09/17 04/09/17 04/10/17 Range/Units 16:04 21:15 05:23 RBC 3.78 L (4.30-5.90) m/uL Hgb 10.6 L (13.0-17.5) gm/dL Hct 32.8 L (39.0-53.0) % RDW 21.9 H (11.5-15.5) % Plt Count 145 L (150-450) k/uL Lymphocytes # 0.7 L (1.0-4.8) k/uL Chloride (98-107) mmol/L Carbon Dioxide (22-30) mmol/L BUN (9-20) mg/dL Creatinine (0.66-1.25) mg/dL Glucose (74-99) mg/dL POC Glucose (mg/dL) 283 H 290 H (75-99) mg/dL Total Protein (6.3-8.2) g/dL Albumin (3.5-5.0) g/dL Urine Protein (Negative) 04/10/17 04/10/17 04/10/17 Range/Units 05:23 05:43 10:00 RBC (4.30-5.90) m/uL Hgb (13.0-17.5) gm/dL Hct (39.0-53.0) % RDW (11.5-15.5) % Plt Count (150-450) k/uL Lymphocytes # (1.0-4.8) k/uL Chloride 110 H (98-107) mmol/L Carbon Dioxide 16 L (22-30) mmol/L BUN 47 H (9-20) mg/dL Creatinine 1.80 H (0.66-1.25) mg/dL Glucose 186 H (74-99) mg/dL POC Glucose (mg/dL) 181 H (75-99) mg/dL Total Protein 5.8 L (6.3-8.2) g/dL Albumin 3.0 L (3.5-5.0) g/dL Urine Protein 1+ H (Negative) Microbiology - Last 24 Hours (Table) 04/08/17 13:30 Blood Culture - Preliminary Blood No Growth after 24 hours Assessment and Plan Plan: Assessment and plan #1 rash with associated mucositis secondary to chemotherapy #2 abnormal renal function, likely secondary to dehydration. #3 elevated troponins, likely secondary to abnormal renal function. #4 chronic persistent atrial fibrillation with controlled ventricular response Plan Echocardiogram with Doppler study was performed which revealed an ejection fraction of 50-55%. We will follow this patient with you now on an as-needed basis only, please don't hesitate to call with any questions. DNP note has been reviewed, I agree with a documented findings and plan of care. Patient was seen and examined.
[2017-04-10] MEDS: FERROUS SULFATE 325 MG TAB PO SCH ×2 (11:33→17:20)
[2017-04-10] MEDS: VIT A,C & E-LUTEIN-MINERALS 1 EACH TAB PO SCH ×2 (11:33→17:20)
[2017-04-10 16:35] LABS: Glucose,Whole Blood 193 mg/dL (75-99)
[2017-04-10 21:18] LABS: Glucose,Whole Blood 266 mg/dL (75-99)
[2017-04-10] MEDS: MELATONIN 3 MG TABLET PO PRN (22:15)
[2017-04-10] MEDS: ATORVASTATIN 20 MG TAB PO SCH (22:17)
[2017-04-10] MEDS: INSULIN ASPART 100 UNIT/ML 1 ML 10 ML VIAL SQ SCH (22:23)
[2017-04-11 05:55] LABS: Glucose,Whole Blood 139 mg/dL (75-99)
[2017-04-11] MEDS: glipiZIDE 5 MG TAB PO SCH ×2 (06:35→17:46)
[2017-04-11] MEDS: LEVOTHYROXINE 75 MCG TAB PO SCH (06:35)
[2017-04-11] MEDS: INSULIN ASPART 100 UNIT/ML 1 ML 10 ML VIAL SQ SCH ×4 (06:36→21:14)
[2017-04-11] MEDS: methylPREDNISolone SOD SUCCI 125 MG/2 ML VIAL IV SCH ×3 (10:14→23:26)
[2017-04-11] MEDS: ARTIFICIAL TEARS-HYPROMELLOSE DROPS 15 ML BTL BOTH EYES SCH ×2 (10:14→21:14)
[2017-04-11] MEDS: AMMONIUM LACTATE 12% CREAM 140 GM TUBE TOPICAL SCH ×2 (10:14→21:14)
[2017-04-11] MEDS: APIXABAN 2.5 MG TABLET PO SCH ×2 (10:14→21:14)
[2017-04-11] MEDS: CALCITRIOL 0.25 MCG CAP PO SCH (10:15)
[2017-04-11] MEDS: DIGOXIN 125 MCG TAB PO SCH (10:15)
[2017-04-11] MEDS: MAG HYDROX/AL HYDROX/SIMETH 30 ML, diphenhydrAMINE ELIXIR 75 MG, LIDOCAINE VISCOUS 30 ML PO SCH ×15 (10:16→21:28)
[2017-04-11] MEDS: PANTOPRAZOLE 40 MG/10 ML VIAL IV SCH (10:16)
[2017-04-11] MEDS: DIPHENOX-ATROP 2.5-0.025 MG 1 EACH TAB PO SCH ×3 (10:57→21:14)
--- NOTE | 2017-04-11 11:53 | P.PN ---
Progress Note - Text Progress Note Date: 04/11/17 The patient feels better today. His mucositis has improved. He is a tolerating a clear diet. On exam his vital signs are stable. His abdomen soft. There is no significant tenderness. Status post colon cancer with severe reaction to chemotherapy. Patient's mucositis has improved. His diarrhea has improved as well. He will have his diet slowly advanced.
[2017-04-11 11:56] LABS: Glucose,Whole Blood 220 mg/dL (75-99)
[2017-04-11] MEDS: METOPROLOL TARTRATE 50 MG TAB PO SCH ×2 (11:57→21:14)
[2017-04-11] MEDS: VIT A,C & E-LUTEIN-MINERALS 1 EACH TAB PO SCH ×2 (11:58→17:46)
[2017-04-11] MEDS: LOSARTAN 25 MG TAB PO SCH (11:58)
[2017-04-11] MEDS: FERROUS SULFATE 325 MG TAB PO SCH ×2 (11:58→17:46)
[2017-04-11 17:07] LABS: Glucose,Whole Blood 174 mg/dL (75-99)
--- NOTE | 2017-04-11 17:27 | PN ---
PROGRESS NOTE SUBJECTIVE: This is an 86-year-old white male who is improving. His arm redness and scaliness are improving. His aphthous stomatitis is improving. His chemotherapy has been withdrawn. He is seeing surgery for diarrhea. He had some blood in his stool with no further plans per their recommendations. Cardiology saw him also for elevated troponins, acute kidney injury. Echo showed ejection fraction 50-55%. CARDIOVASCULAR: S1, S2. LUNGS: Transmitted upper sounds. HEMATOLOGY: Negative Homans'. INTEGUMENT: Excoriation, redness and bruising over the forearms are bilaterally improved. Hemoglobin is at 10.6. BUN is 47, creatinine 1.80. ASSESSMENT: 1. Dermatitis, mucositis secondary to chemotherapy, improving. 2. Abnormal renal function, improving with rehydration. 3. Elevated troponins due to abnormal renal function. 4. Chronic atrial fibrillation, controlled ventricular response. 5. No significant signs of any severe bleeding with stable hemoglobin. 6. Possible discharge home in the morning. MMODL / IJN: [id number] /
--- NOTE | 2017-04-11 18:02 | P.PN ---
Subjective Progress Note Date: 04/11/17 The patient notes some improvement. While he still has lip lesions, they have improved. The inside of his mouth feels better. Diarrhea has slowed down considerably, though stools are still quite watery. He feels more hungry and would like to advance his diet. Objective - Vital Signs Vital signs: Vital Signs Temp 97.4 F L 04/11/17 16:00 Pulse 88 04/11/17 16:00 Resp 16 04/11/17 16:00 BP 120/73 04/11/17 16:00 Pulse Ox 100 04/11/17 16:00 Intake & Output 04/10/17 04/11/17 04/11/17 18:59 06:59 18:59 Intake Total 1020 1080 Output Total 1300 Balance -280 1080 Weight 93 kg 93 kg Intake: Oral 1020 1080 Output: Urine 1300 Other: Voiding Method Toilet Toilet Toilet Urinal Urinal Urinal # Voids 1 2 - Constitutional General appearance: Present: no acute distress - EENT EENT Comment(s): the patient still has mucositis with blackish eschar on the lower lip. However oropharynx and posterior pharynx are much improved Eyes: Present: PERRLA ENT: Present: normal oropharynx - Respiratory Respiratory: bilateral: CTA - Cardiovascular Rhythm: regular Heart sounds: normal: S1, S2 - Gastrointestinal General gastrointestinal: Present: soft - Integumentary Integumentary: Present: normal - Musculoskeletal Musculoskeletal: Present: strength equal bilaterally - Psychiatric Psychiatric: Present: A&O x's 3, appropriate affect - Labs CBC & Chem 7: 04/10/17 05:23 04/10/17 05:23 Labs: Abnormal Lab Results - Last 24 Hours (Table) 04/10/17 04/11/17 04/11/17 Range/Units 20:53 05:52 11:39 POC Glucose (mg/dL) 266 H 139 H 220 H (75-99) mg/dL 04/11/17 Range/Units 17:05 POC Glucose (mg/dL) 174 H (75-99) mg/dL Microbiology - Last 24 Hours (Table) 04/08/17 13:30 Blood Culture - Preliminary Blood No Growth after 72 hours Assessment and Plan (1) Mucositis due to chemotherapy Narrative/Plan: There has been overall improvement, with increasing intervals since his last chemotherapy, as well as ongoing supportive care. Continue oral care with Magic mouthwash. His diet will be advanced to full liquids. Continue Lomotil. Current Visit: Yes Status: Acute Code(s): K12.31 - ORAL MUCOSITIS ( ULCERATIVE) DUE TO ANTINEOPLASTIC THERAPY SNOMED Code(s): 635939670 (2) Dehydration Narrative/Plan: clinically improved with ongoing hydration and increasing oral intake Current Visit: Yes Status: Acute Code(s): E86.0 - DEHYDRATION SNOMED Code( s): 97635176 (3) Rash Current Visit: Yes Status: Acute Code(s): R21 - RASH AND OTHER NONSPECIFIC SKIN ERUPTION SNOMED Code(s): 633620666 (4) Colon cancer Current Visit: Yes Status: Acute Code(s): C18.9 - MALIGNANT NEOPLASM OF COLON, UNSPECIFIED SNOMED Code(s): 005479997
[2017-04-11 21:00] LABS: Glucose,Whole Blood 155 mg/dL (75-99)
[2017-04-11] MEDS: MELATONIN 3 MG TABLET PO PRN (21:14)
[2017-04-11] MEDS: ATORVASTATIN 20 MG TAB PO SCH (21:14)
[2017-04-12 06:16] LABS: Anisocytosis Moderate; Basophils % (A) 0 %; CH 28.3; CHCM 32.2; Eosinophils % (A) 0 %; HCT 33.5 % (39.0-53.0); HDW 2.53; HGB 10.8 gm/dL (13.0-17.5); Luc # (Auto) 0.02; Luc % (Auto) 1; Lymphocytes # (A) 0.4 k/uL (1.0-4.8); Lymphocytes % (A) 15 %; MCH 28.4 pg (25.0-35.0); MCHC 32.2 g/dL (31.0-37.0); MCV 88.1 fL (80.0-100.0); Mean Platelet Volume 7.4; Monocytes # (A) 0.1 k/uL (0-1.0); Monocytes % (A) 3 %; Neutrophils # (A) 2.1 k/uL (1.3-7.7); Neutrophils % (A) 81 %; RDW 20.1 % (11.5-15.5); WBC 2.6 k/uL (3.8-10.6); WBC (Perox) 2.47
[2017-04-12 06:21] LABS: Calcium 8.5 mg/dL (8.4-10.2); Potassium 4.2 mmol/L (3.5-5.1); Total Bilirubin 0.5 mg/dL (0.2-1.3); Total Protein 5.1 g/dL (6.3-8.2)
[2017-04-12 06:24] LABS: Glucose,Whole Blood 174 mg/dL (75-99)
[2017-04-12] MEDS: INSULIN ASPART 100 UNIT/ML 1 ML 10 ML VIAL SQ SCH (06:45)
[2017-04-12] MEDS: LEVOTHYROXINE 75 MCG TAB PO SCH (06:45)
[2017-04-12] MEDS: glipiZIDE 5 MG TAB PO SCH (06:45)
[2017-04-12] MEDS ORDERED: ONDANSETRON 4 MG/2 ML VIAL ONE (09:00)
[2017-04-12] MEDS ORDERED: DIGOXIN 125 MCG TAB ONE (09:00)
[2017-04-12] MEDS ORDERED: methylPREDNISolone SOD SUCCI 125 MG/2 ML VIAL ONE (09:00)
[2017-04-12] MEDS ORDERED: VIT A,C & E-LUTEIN-MINERALS 1 EACH TAB ONE (09:00)
[2017-04-12] MEDS ORDERED: ATORVASTATIN 20 MG TAB ONE (09:00)
[2017-04-12] MEDS ORDERED: FERROUS SULFATE 325 MG TAB PO ONE (09:00)
[2017-04-12] MEDS ORDERED: PANTOPRAZOLE 40 MG TABLET PO ONE (09:00)
[2017-04-12] MEDS ORDERED: LOSARTAN 25 MG TAB ONE (09:00)
[2017-04-12] MEDS ORDERED: glipiZIDE 5 MG TAB ONE (09:00)
[2017-04-12] MEDS ORDERED: METOPROLOL TARTRATE 50 MG TAB ONE (09:00)
[2017-04-12] MEDS ORDERED: APIXABAN 2.5 MG TABLET ONE (09:00)
[2017-04-12] MEDS ORDERED: INSULIN ASPART 100 UNIT/ML 1 ML 10 ML VIAL SQ ONE (09:00)
[2017-04-12] MEDS ORDERED: CALCITRIOL 0.25 MCG CAP ONE (09:00)
[2017-04-12] MEDS ORDERED: DIPHENOX-ATROP 2.5-0.025 MG 1 EACH TAB ONE (09:00)
--- NOTE | 2017-04-12 22:54 | PN ---
PROGRESS NOTE Mr. Fowler is resting comfortably in his bed. He states he has had increased appetite and has an easier time eating. On examination, his vital signs are stable. His abdomen is soft. IMPRESSION: Resolving mucositis and enteritis. The patient will be discharged home per Medicine. MMODL / IJN: [id number] /
[2017-04-13] MEDS ORDERED: methylPREDNISolone SOD SUCCI 125 MG/2 ML VIAL ONE
[2017-04-13] MEDS: methylPREDNISolone SOD SUCCI 125 MG/2 ML VIAL IV SCH ×3 (00:26→08:24)
[2017-04-13] MEDS: AMMONIUM LACTATE 12% CREAM 140 GM TUBE TOPICAL SCH ×4 (00:28→22:21)
[2017-04-13] MEDS: CALCITRIOL 0.25 MCG CAP PO SCH ×2 (00:29→08:24)
[2017-04-13] MEDS: METOPROLOL TARTRATE 50 MG TAB PO SCH ×4 (00:29→22:15)
[2017-04-13] MEDS: DIGOXIN 125 MCG TAB PO SCH ×2 (00:29→08:24)
[2017-04-13] MEDS: DIPHENOX-ATROP 2.5-0.025 MG 1 EACH TAB PO SCH ×4 (00:29→22:27)
[2017-04-13] MEDS: ARTIFICIAL TEARS-HYPROMELLOSE DROPS 15 ML BTL BOTH EYES SCH ×3 (00:29→22:23)
[2017-04-13] MEDS: LOSARTAN 25 MG TAB PO SCH ×2 (00:29→08:24)
[2017-04-13] MEDS: APIXABAN 2.5 MG TABLET PO SCH ×3 (00:29→22:22)
[2017-04-13] MEDS: VIT A,C & E-LUTEIN-MINERALS 1 EACH TAB PO SCH ×3 (00:30→16:31)
[2017-04-13] MEDS: MAG HYDROX/AL HYDROX/SIMETH 30 ML, diphenhydrAMINE ELIXIR 75 MG, LIDOCAINE VISCOUS 30 ML PO SCH ×15 (00:30→22:22)
[2017-04-13] MEDS: INSULIN ASPART 100 UNIT/ML 1 ML 10 ML VIAL SQ SCH ×6 (00:30→22:28)
[2017-04-13] MEDS: PANTOPRAZOLE 40 MG TABLET PO SCH ×2 (00:30→08:23)
[2017-04-13] MEDS: FERROUS SULFATE 325 MG TAB PO SCH ×3 (00:30→16:31)
[2017-04-13] MEDS: ATORVASTATIN 20 MG TAB PO SCH ×2 (00:31→22:23)
[2017-04-13] MEDS: glipiZIDE 5 MG TAB PO SCH ×3 (00:31→16:31)
[2017-04-13 02:55] LABS: Glucose,Whole Blood 222 mg/dL (75-99)
[2017-04-13 02:55] LABS: Glucose,Whole Blood 170 mg/dL (75-99)
[2017-04-13 02:55] LABS: Glucose,Whole Blood 151 mg/dL (75-99)
[2017-04-13 05:56] LABS: Glucose,Whole Blood 189 mg/dL (75-99)
[2017-04-13] MEDS: LEVOTHYROXINE 75 MCG TAB PO SCH (06:47)
[2017-04-13 10:08] LABS: Calcium 8.6 mg/dL (8.4-10.2); Potassium 4.6 mmol/L (3.5-5.1); Total Bilirubin 0.5 mg/dL (0.2-1.3); Total Protein 5.7 g/dL (6.3-8.2)
[2017-04-13 11:58] LABS: Glucose,Whole Blood 184 mg/dL (75-99)
--- NOTE | 2017-04-13 15:57 | PN ---
PROGRESS NOTE SUBJECTIVE: An 86-year-old with significant dehydration. He has poor oral intake secondary to mucositis secondary to chemotherapy and dermatitis is improving. Solu-Medrol will be decreased at this time. He has continued improvement. His BUN is 78, his creatinine 2.68. Sugars are mid 100s. CARDIOVASCULAR: S1, S2. LUNGS: Transmitted upper airway sounds. HEMATOLOGIC: Negative Homans'. PSYCH: Fair mood and affect. ASSESSMENT: Acute chemotherapy-induced dermatitis and mucositis, dehydration, acute on chronic renal failure, poor oral intake. Get dietitian to see the patient, continues to improve. Fluids will be continued. Possible discharge home in the next 24-48 hours. MMODL / IJN: [id number] /
[2017-04-13 16:24] LABS: Glucose,Whole Blood 177 mg/dL (75-99)
[2017-04-13] MEDS: ONDANSETRON 4 MG/2 ML VIAL IVP PRN (17:23)
[2017-04-13 20:48] LABS: Glucose,Whole Blood 216 mg/dL (75-99)
[2017-04-13] MEDS ORDERED: SODIUM CHLORIDE 0.9% 500 ML IV ONE (22:18)
[2017-04-13] MEDS: methylPREDNISolone SOD SUCCI 40 MG/ML 1 ML VIAL IV SCH (22:28)
[2017-04-13] MEDS: MIDODRINE 5 MG TAB PO SCH (23:18)
[2017-04-13 23:36] LABS: Anisocytosis Moderate; CH 28.2; CHCM 31.8; HCT 42.2 % (39.0-53.0); HDW 2.58; HGB 13.4 gm/dL (13.0-17.5); Immature Gran Flag Marked; MCH 28.2 pg (25.0-35.0); MCHC 31.7 g/dL (31.0-37.0); Macrocytosis Slight; Mean Platelet Volume 7.3; RBC 4.74 m/uL (4.30-5.90); RDW 20.4 % (11.5-15.5); WBC (Perox) 1.61
[2017-04-13 23:43] LABS: WBC 1.5 k/uL (3.8-10.6)
--- NOTE | 2017-04-13 23:46 | XR ---
EXAM: XR Chest, 1 View CLINICAL HISTORY: Reason: change in breath sounds TECHNIQUE: Portable frontal view of the chest. COMPARISON: 04/08/17 two-view chest. FINDINGS: Lungs: The retrocardiac region is less well seen although at least some of this is likely due to portable AP technique and leftward rotation, as the left diaphragm remains fairly well visualized. The left upper and midlung field, and right lung remain clear. Pleural space: No pleural effusion or pneumothorax. Heart: Stable cardiomegaly. Prior median sternotomy and CABG. Mediastinum: Stable. Bones/joints: Degenerative changes, without acute displaced fracture. Now included is possible calcific tendinopathy in the right shoulder. IMPRESSION: 1. Diminished visualization of the retrocardiac region at least some if not all of which may be due to technical differences rather than on the basis of atelectasis or early infiltrate. This could be correlated clinically and for which attention is recommended on follow-up. 2. The balance of the exam is essentially unchanged, as above.
[2017-04-13 23:53] LABS: Calcium 8.3 mg/dL (8.4-10.2); Magnesium 2.6 mg/dL (1.6-2.3)
[2017-04-13 23:55] LABS: Add Differential Manual Differential
[2017-04-14 00:01] LABS: Band Neutrophils % 17 %; Manual Review Performed; Nucleated Red Blood Cells 2 /100 WBC (0-0); Total Cells Counted 200
[2017-04-14 00:02] LABS: Toxic Granulation Present
[2017-04-14] MEDS ORDERED: SODIUM CHLORIDE 0.9% 500 ML IV ONE (00:20)
[2017-04-14 00:25] LABS: Potassium 4.6 mmol/L (3.5-5.1)
[2017-04-14 01:15] LABS: Glucose,Whole Blood 150 mg/dL (75-99)
[2017-04-14] MEDS ORDERED: VANCOMYCIN IV PER PHARMACY 1 EACH MISC MISCELLANE PRN (01:17)
[2017-04-14] MEDS ORDERED: FILGRASTIM-SNDZ 480 MCG/0.8 ML SYRINGE SQ SCH ×2 (01:30→02:31)
[2017-04-14] MEDS: ONDANSETRON 4 MG/2 ML VIAL IVP PRN (01:59)
[2017-04-14] MEDS ORDERED: VANCOMYCIN 1,500 MG in SODIUM CHLORIDE 0.9% 250 ML IVPB ONE (02:00)
[2017-04-14] MEDS ORDERED: CEFEPIME 2 GM in SODIUM CHLORIDE 0.9% 50 ML IVPB SCH (02:00)
[2017-04-14] MEDS: SODIUM CHLORIDE 0.9% 1,000 ML IV SCH ×13 (02:01→14:17)
--- NOTE | 2017-04-14 02:27 | XR ---
EXAM: XR Abdomen, 1 View CLINICAL HISTORY: Reason: diarrhea TECHNIQUE: Two frontal supine views to include the abdomen and pelvis. COMPARISON: 04/08/17 supine and upright radiographs. FINDINGS: Intraperitoneal space: No gross free air seen on these supine images. Gastrointestinal tract: There is some air present within small and large bowel loops, including within slightly prominent transverse colon which measures up to 5.7 cm in diameter. Organs: Right upper quadrant clips consistent with cholecystectomy. Bones/joints: Prior median sternotomy. Multilevel degenerative changes throughout. Vasculature: Arterial vascular calcifications are noted. IMPRESSION: Limited supine exam, with nonspecific bowel gas pattern including air- filled slightly prominent transverse colon, without gross evidence of free air. Findings could be correlated clinically to guide further follow-up as clinically indicated.
[2017-04-14] MEDS ORDERED: NOREPINEPHRIN 4 MG-0.9% NS PMX 4 MG/250 ML ML IV SCH (02:41)
[2017-04-14 03:24] LABS: Amorphous Sediment,Urine Rare /hpf; Appearance,Urine Cloudy (Clear); Bilirubin,Urine Negative (Negative); Glucose,Urine (UA) Negative (Negative); Ketones,Urine Negative (Negative); Leukocyte Esterase,Urine Negative (Negative); Nitrite,Urine Negative (Negative); Particle Count 13823; Protein,Urine 1+ (Negative); Specific Gravity,Urine 1.017 (1.001-1.035); Squamous Epithelial Cell,Urine 2 /hpf (0-4); UA Billing (MACRO vs. MICRO) MICRO; Urobilinogen,Urine <2.0 mg/dL (<2.0); WBC,Urine <1 /hpf (0-5)
[2017-04-14 05:58] LABS: Anisocytosis Moderate; CH 27.9; CHCM 30.6; HCT 39.5 % (39.0-53.0); HDW 2.62; HGB 12.2 gm/dL (13.0-17.5); Hypochromasia Moderate; Immature Gran Flag Marked; MCH 28.1 pg (25.0-35.0); MCHC 30.8 g/dL (31.0-37.0); MCV 91.3 fL (80.0-100.0); Macrocytosis Slight; Mean Platelet Volume 8.6; RBC 4.32 m/uL (4.30-5.90); WBC (Perox) 0.97
[2017-04-14 05:59] LABS: WBC 0.9 k/uL (3.8-10.6)
[2017-04-14 06:06] LABS: Calcium 7.6 mg/dL (8.4-10.2); Magnesium 2.4 mg/dL (1.6-2.3); Phosphorus 4.7 mg/dL (2.5-4.5); Potassium 4.3 mmol/L (3.5-5.1); Total Bilirubin 0.5 mg/dL (0.2-1.3); Total Protein 4.6 g/dL (6.3-8.2)
[2017-04-14 06:45] LABS: Add Differential Manual Differential; Manual Review Performed
--- NOTE | 2017-04-14 07:09 | XR ---
EXAMINATION TYPE: XR chest 1V DATE OF EXAM: 04/14/2017 HISTORY: recurrent pleural effusion. REFERENCE: Previous study dated 04/13/2017. FINDINGS: There has been a midline sternotomy. The heart is mildly enlarged. There is some left basilar airspace disease. The right lung is clear. I could not exclude a small, left effusion. IMPRESSION: 1. MILD CARDIOMEGALY. 2. LEFT BASILAR AIRSPACE DISEASE. 3. I CANNOT EXCLUDE A SMALL, LEFT EFFUSION.
[2017-04-14] MEDS ORDERED: MIDODRINE 5 MG TAB PO SCH (07:30)
[2017-04-14 07:52] LABS: Glucose,Whole Blood 189 mg/dL (75-99)
[2017-04-14] MEDS ORDERED: SODIUM BICARB 8.4% 50 ML SYR (1 MEQ/ML) IV ONE ×2 (08:00→22:34)
[2017-04-14] MEDS: LEVOTHYROXINE 75 MCG TAB PO SCH (08:01)
[2017-04-14] MEDS: MIDODRINE 5 MG TAB PO SCH (08:02)
[2017-04-14] MEDS: glipiZIDE 5 MG TAB PO SCH ×2 (08:02→18:13)
[2017-04-14] MEDS: APIXABAN 2.5 MG TABLET PO SCH ×2 (08:03→21:40)
[2017-04-14] MEDS: DIGOXIN 125 MCG TAB PO SCH (08:03)
[2017-04-14] MEDS: methylPREDNISolone SOD SUCCI 40 MG/ML 1 ML VIAL IV SCH ×2 (08:04→22:16)
[2017-04-14] MEDS: METOPROLOL TARTRATE 50 MG TAB PO SCH (08:04)
[2017-04-14] MEDS: MAG HYDROX/AL HYDROX/SIMETH 30 ML, diphenhydrAMINE ELIXIR 75 MG, LIDOCAINE VISCOUS 30 ML PO SCH ×12 (08:27→21:45)
[2017-04-14] MEDS: PANTOPRAZOLE 40 MG TABLET PO SCH (08:28)
[2017-04-14] MEDS: AMMONIUM LACTATE 12% CREAM 140 GM TUBE TOPICAL SCH (08:32)
[2017-04-14] MEDS: CALCITRIOL 0.25 MCG CAP PO SCH (08:33)
[2017-04-14] MEDS: ARTIFICIAL TEARS-HYPROMELLOSE DROPS 15 ML BTL BOTH EYES SCH ×2 (08:33→22:50)
[2017-04-14] MEDS: DIPHENOX-ATROP 2.5-0.025 MG 1 EACH TAB PO SCH ×3 (08:37→21:45)
[2017-04-14] MEDS: INSULIN ASPART 100 UNIT/ML 1 ML 10 ML VIAL SQ SCH ×4 (08:37→21:44)
[2017-04-14 09:32] VITALS: BMI 28.5
[2017-04-14] MEDS ORDERED: DEXTROSE 5% IN WATER 1,000 ML with SODIUM BICARB (1 MEQ/ML) 150 ML IV SCH ×2 (11:15→12:15)
--- NOTE | 2017-04-14 12:05 | P.PN ---
Subjective Progress Note Date: 04/14/17 The patient had shown significant clinical improvement, as noted in my previous dictation. However yesterday, he developed increased heart rate and drop in blood pressure. He was resuscitated with fluids and transferred to the ICU. I was called by nursing, regarding the onset of these symptoms. The patient's labs now show drop in his white count into the 1000 range, as well as elevation of his creatinine. There was no fever, and apparently a abdomen was soft. The patient was therefore started on filgrastim, as well as broad- spectrum antibiotics. He was subsequently transferred to the ICU according to Dr. Murrell's orders. His currently on pressors. Objective - Vital Signs Vital signs: Vital Signs Temp 98.2 F 04/14/17 08:00 Pulse 139 H 04/14/17 10:00 Resp 11 L 04/14/17 10:00 BP 76/49 04/14/17 10:00 Pulse Ox 99 04/14/17 10:00 Intake & Output 04/13/17 04/14/17 04/14/17 18:59 06:59 18:59 Intake Total 950 2800 1502.062 Output Total 225 115 Balance 950 2575 1387.062 Weight 95.7 kg 95.7 kg Intake: IV 2800 1500 Cefepime 2 gm In Sodium 50 Chloride 0.9% 50 ml @ 100 mls/hr IVPB Q8H [facility] Rx#: [id number] Sodium Chloride 0.9% 1, 500 500 000 ml @ 125 mls/hr IV . Q8H [facility] Rx#:[id number] Sodium Chloride 0.9% 1, 1000 1000 000 ml @ 999 mls/hr IV . Q1H1M [facility] Rx#:[id number] Sodium Chloride 0.9% 500 1000 ml @ 999 mls/hr IV .Q31M ONE Rx#:[id number] Vancomycin 1,500 mg In 250 Sodium Chloride 0.9% 250 ml @ 125 mls/hr IVPB ONCE ONE Rx#:[id number] Intake, IV Titration 2.062 Amount Norepinephrin 4 mg-0.9% 2.062 Ns Pmx 4 mg In 250 ml @ Titrate IV .Q0M [facility] Rx#: [id number] Oral 950 Output: Urine 225 115 Other: Voiding Method Indwelling Catheter Indwelling Catheter # Voids 1 1 # Bowel Movements 1 - Constitutional General appearance: Present: mild distress - EENT EENT Comment(s): Persistent mucositis in upper and lower lips. This appears to be possibly somewhat worse. Patchy mucositis again noted in the oral mucosa, somewhat worse than my previous exam. Eyes: Present: PERRLA ENT: Present: pharyngeal erythema - Respiratory Respiratory: bilateral: diminished - Cardiovascular Rhythm: irregularly irregular Heart sounds: normal: S1, S2 - Gastrointestinal General gastrointestinal: Present: decreased bowel sounds, soft - Integumentary Integumentary Comment(s): Evidence of hand-foot syndrome involving the hands. - Neurologic Neurologic: Present: CNII-XII intact - Musculoskeletal Musculoskeletal: Present: generalized weakness, strength equal bilaterally - Psychiatric Psychiatric Comment(s): Mildly confused - Labs CBC & Chem 7: 04/14/17 05:44 04/14/17 05:44 Labs: Abnormal Lab Results - Last 24 Hours (Table) 04/13/17 04/13/17 04/13/17 Range/Units 16:20 20:45 23:23 WBC 1.5 L* (3.8-10.6) k/uL Hgb (13.0-17.5) gm/dL MCHC (31.0-37.0) g/dL RDW 20.4 H (11.5-15.5) % Plt Count (150-450) k/uL Neutrophils # (Manual) 0.70 L (1.3-7.7) k/uL Lymphocytes # (Manual) 0.50 L (1.0-4.8) k/uL Nucleated RBCs 2 H (0-0) /100 WBC Chloride (98-107) mmol/L Carbon Dioxide (22-30) mmol/L BUN (9-20) mg/dL Creatinine (0.66-1.25) mg/dL Glucose (74-99) mg/dL POC Glucose (mg/dL) 177 H 216 H (75-99) mg/dL Plasma Lactic Acid Nic (0.7-2.0) mmol/L Calcium (8.4-10.2) mg/dL Phosphorus (2.5-4.5) mg/dL Magnesium (1.6-2.3) mg/dL AST (17-59) U/L Total Protein (6.3-8.2) g/dL Albumin (3.5-5.0) g/dL Urine Protein (Negative) Amorphous Sediment (None) /hpf 04/13/17 04/14/17 04/14/17 Range/Units 23:23 01:13 01:45 WBC (3.8-10.6) k/uL Hgb (13.0-17.5) gm/dL MCHC (31.0-37.0) g/dL RDW (11.5-15.5) % Plt Count (150-450) k/uL Neutrophils # (Manual) (1.3-7.7) k/uL Lymphocytes # (Manual) (1.0-4.8) k/uL Nucleated RBCs (0-0) /100 WBC Chloride 114 H (98-107) mmol/L Carbon Dioxide 11 L (22-30) mmol/L BUN 92 H* (9-20) mg/dL Creatinine 3.00 H (0.66-1.25) mg/dL Glucose 181 H (74-99) mg/dL POC Glucose (mg/dL) 150 H (75-99) mg/dL Plasma Lactic Acid Nic 3.0 H* (0.7-2.0) mmol/L Calcium 8.3 L (8.4-10.2) mg/dL Phosphorus (2.5-4.5) mg/dL Magnesium 2.6 H (1.6-2.3) mg/dL AST (17-59) U/L Total Protein (6.3-8.2) g/dL Albumin (3.5-5.0) g/dL Urine Protein (Negative) Amorphous Sediment (None) /hpf 04/14/17 04/14/17 04/14/17 Range/Units 03:00 05:44 05:44 WBC 0.9 L* (3.8-10.6) k/uL Hgb 12.2 L (13.0-17.5) gm/dL MCHC 30.8 L (31.0-37.0) g/dL RDW 20.0 H (11.5-15.5) % Plt Count 126 L (150-450) k/uL Neutrophils # (Manual) (1.3-7.7) k/uL Lymphocytes # (Manual) (1.0-4.8) k/uL Nucleated RBCs (0-0) /100 WBC Chloride 115 H (98-107) mmol/L Carbon Dioxide 10 L* (22-30) mmol/L BUN 90 H* (9-20) mg/dL Creatinine 2.90 H (0.66-1.25) mg/dL Glucose 150 H (74-99) mg/dL POC Glucose (mg/dL) (75-99) mg/dL Plasma Lactic Acid Nic (0.7-2.0) mmol/L Calcium 7.6 L (8.4-10.2) mg/dL Phosphorus 4.7 H (2.5-4.5) mg/dL Magnesium 2.4 H (1.6-2.3) mg/dL AST 12 L (17-59) U/L Total Protein 4.6 L (6.3-8.2) g/dL Albumin 2.2 L (3.5-5.0) g/dL Urine Protein 1+ H (Negative) Amorphous Sediment Rare H (None) /hpf 04/14/17 04/14/17 04/14/17 Range/Units 05:44 07:51 10:07 WBC (3.8-10.6) k/uL Hgb (13.0-17.5) gm/dL MCHC (31.0-37.0) g/dL RDW (11.5-15.5) % Plt Count (150-450) k/uL Neutrophils # (Manual) (1.3-7.7) k/uL Lymphocytes # (Manual) (1.0-4.8) k/uL Nucleated RBCs (0-0) /100 WBC Chloride (98-107) mmol/L Carbon Dioxide (22-30) mmol/L BUN (9-20) mg/dL Creatinine (0.66-1.25) mg/dL Glucose (74-99) mg/dL POC Glucose (mg/dL) 189 H (75-99) mg/dL Plasma Lactic Acid Nic 2.8 H* 3.6 H* (0.7-2.0) mmol/L Calcium (8.4-10.2) mg/dL Phosphorus (2.5-4.5) mg/dL Magnesium (1.6-2.3) mg/dL AST (17-59) U/L Total Protein (6.3-8.2) g/dL Albumin (3.5-5.0) g/dL Urine Protein (Negative) Amorphous Sediment (None) /hpf Microbiology - Last 24 Hours (Table) 04/14/17 03:00 Urine Culture - Preliminary Urine,Catheterized 04/08/17 13:30 Blood Culture - Preliminary Blood No Growth after 120 hours Assessment and Plan (1) Mucositis due to chemotherapy Narrative/Plan: This had been improving quite well, and the patient had requested his diet to be advanced. However on exam today oral mucositis appears slightly worse. This is most likely due to the drop in her white blood count. Continue current treatment. Current Visit: Yes Status: Acute Code(s): K12.31 - ORAL MUCOSITIS ( ULCERATIVE) DUE TO ANTINEOPLASTIC THERAPY SNOMED Code(s): 731300773 (2) Dehydration Current Visit: Yes Status: Acute Code(s): E86.0 - DEHYDRATION SNOMED Code( s): 38911597 (3) Rash Current Visit: Yes Status: Acute Code(s): R21 - RASH AND OTHER NONSPECIFIC SKIN ERUPTION SNOMED Code(s): 396153443 (4) Colon cancer Current Visit: Yes Status: Acute Code(s): C18.9 - MALIGNANT NEOPLASM OF COLON, UNSPECIFIED SNOMED Code(s): 145842152 (5) SIRS (systemic inflammatory response syndrome) Narrative/Plan: The patient has developed new onset of tachycardia, hypertension and elevated lactic acid. He is afebrile, and troponins were negative. Chest x-ray and abdominal x-ray did not show any major abnormality. Clinically, sepsis is considered a major differential diagnosis given the drop in his white count. The mucositis could potentially be the source. The patient was therefore started on filgrastim, as well as broad-spectrum antibiotics. Cultures are pending at this time but are negative so far. ID will be consulted. Defer to the admitting service, as well as critical care medicine for management of his acute condition as well as workup for other etiologies Current Visit: Yes Status: Acute Code(s): R65.10 - SIRS OF NON-INFECTIOUS ORIGIN W/O ACUTE ORGAN DYSFUNCTION SNOMED Code(s): 025791591
[2017-04-14] MEDS: DEXTROSE 5% IN WATER 1,000 ML with SODIUM BICARB (1 MEQ/ML) 150 ML IV SCH ×2 (12:29→21:44)
[2017-04-14 12:34] LABS: Glucose,Whole Blood 146 mg/dL (75-99)
[2017-04-14] MEDS: NYSTATIN 100,000 UNIT/ML SUSP 500,000 UNIT/5 ML CUP PO SCH ×3 (12:39→21:45)
[2017-04-14] MEDS: FERROUS SULFATE 325 MG TAB PO SCH ×3 (12:40→21:40)
[2017-04-14] MEDS: VIT A,C & E-LUTEIN-MINERALS 1 EACH TAB PO SCH ×3 (12:40→21:40)
--- NOTE | 2017-04-14 13:36 | P.CNPUL ---
History of Present Illness Consult date: 04/14/17 Requesting physician: Pj Murrell Reason for consult: other (Acute neutropenic sepsis and septic shock) Chief complaint: Painful mouth sores, unable to eat frequent loose bowel movements History of present illness: This is an 86-year-old white male with history of recently diagnosed colon cancer when the patient presented with new obstructing lesion involving the right colon. Patient had right colectomy on , and he underwent partial omentectomy. 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 Separate tumor deposit was also noted in the serosa. Omentum was benign. His postoperative course was relatively uneventful, patient was started on chemotherapy on 03/06/[address] Berrios. Adjuvant Xeloda was recommended. Patient tolerated cycle one quite well, he started cycle 2 and he was supposed to complete his 2 weeks within the next couple of days. However over the last few days, patient developed progressive severe and painful mouth sores, unable to eat, he also developed frequent loose bowel movements and abdominal cramping. Admitted through the ER on 04/08/2017, with the impression of severe mucositis secondary to chemotherapy, dehydration, and skin toxicity from Xeloda. Last night, the patient developed hypotension, resuscitated with fluids, transferred to the ICU, noted to have a significant drop in his WBC count, elevation of his creatinine, and the patient required starting norepinephrine. Patient was started on broad-spectrum antibiotics as well as filgrastim for presumptive neutropenic sepsis and possible septic shock. Patient is now on cefepime and vancomycin, he is also on 6 g of norepinephrine , multiple fluid boluses were given, sodium bicarb was also started, initial consult was given to Dr. Dowd, however he is not available, and I am not covering him on consultation. Dr. Dowd requested to cover him, however she is not retail loss prevention investigator, and there is no social research assistant available to see the patient except myself. Hence the consult was canceled to Dr. Dowd, and it was given to me. Again I'm not covering him and I was never asked by him to cover his patients. I reviewed the chart, reviewed the treatment plan and all the medications, discussed his condition with the nurse taking care of the patient, discussed his condition with him and with his son and [id number] at bedside. Also discussed the issue of CODE STATUS, patient is presently full code. Review of Systems Review of Systems Constitutional: Reports poor appetite, Reports weakness Eyes: denies blurred vision, denies pain Ears: deny: decreased hearing, ear discharge, earache, tinnitus Ears, nose, mouth and throat: Reports as per HPI (severe mouth and lip ulceration, and inflammation), Reports mouth pain, Reports odynophagia Cardiovascular: Reports dyspnea on exertion Respiratory: Denies cough Gastrointestinal: Reports diarrhea, Reports loss of appetite Genitourinary: Reports urinary frequency Musculoskeletal: Reports muscle weakness Integumentary: Reports color changes, Reports rash (reddish, confluent, bilateral hands extending up the forearms) Neurological: Reports weakness Psychiatric: Denies anxiety, Denies depression Endocrine: Reports fatigue 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 AND NO FURTHER PROBLEMS, PUD, ANEMIA, NIDDM TYPE II, HYPERTHYROID WITH THYROIDECTOMY, VERTIGO AT TIMES, HIATAL HERNIA, SINUS PROBLEMS AT TIMES, OCCASIONAL BACK PAIN, PERIPHERAL EDEMA, SKIN CANCER WITH REMOVAL, colon CA-oral chemo History of Any Multi-Drug Resistant Organisms: None Reported Past Surgical History: Cholecystectomy, Coronary Bypass/CABG, Heart Catheterization Additional Past Surgical History / Comment(s): thyroidectomy, rt colectomy, ventral hernia repair, 5 vessel cabg,egd/colonoscopy, cataracats, rt knee arthroscopy, lt vat/decortication, skin gratf lt hand r/t non healing wound, skin cancer removed, sx for undescended testicle Past Anesthesia/Blood Transfusion Reactions: No Reported Reaction Additional Past Anesthesia/Blood Transfusion Reaction / Comment(s): PT HAS RECEIVED BLOOD IN PAST WITHOUT REACTION. Smoking Status: Former smoker - Past Family History Father Family Medical History: No Reported History Additional Family Medical History / Comment(s): FATHER AT THE AGE OF 102YRS. Mother Family Medical History: No Reported History Additional Family Medical History / Comment(s): MOTHER HAD HEART PROBLEMS. SHE AT THE AGE OF 97RS.. pt's dad at age 102 from foot infection/sepsis Medications and Allergies Home Medications Medication Instructions Recorded Confirmed Type Calcitriol [Rocaltrol] 0.25 mcg PO DAILY 01/03/15 04/08/17 History Digoxin [Lanoxin] 125 mcg PO QAM 01/03/15 04/08/17 History Furosemide [Lasix] 40 mg PO DAILY 01/03/15 04/08/17 History Levothyroxine Sodium [Synthroid] 150 mcg PO QAM 01/03/15 04/08/17 History Losartan [Cozaar] 50 mg PO QAM 01/03/15 04/08/17 History Metoprolol Tartrate [Lopressor] 50 mg PO BID 01/03/15 04/08/17 History Potassium Chloride [K-Tab ER] 20 meq PO DAILY 01/03/15 04/08/17 History Simvastatin [Zocor] 40 mg PO HS 01/03/15 04/08/17 History glipiZIDE [Glucotrol] 5 mg PO AC-BID 01/03/15 04/08/17 History Apixaban [Eliquis] 2.5 mg PO BID #60 tab 12/01/16 04/08/17 Rx Ammonium Lactate Cream [Lac-Hydrin 1 applic TOPICAL BID 04/08/17 04/08/17 History 12% Cream] Artificial Tears-Hypromellose 1 drops BOTH EYES BID 04/08/17 04/08/17 History [Artificial Tear Drops] Capecitabine [Xeloda] 2,500 mg PO BID 04/08/17 04/08/17 History Ferrous Sulfate [Feosol] 325 mg PO BID 04/08/17 04/08/17 History Omeprazole 20 mg PO BID 04/08/17 04/08/17 History Polyethylene Glycol 3350 [Miralax] 17 gm PO DAILY 04/08/17 04/08/17 History Vit C/E/Zn/Coppr/Lutein/Zeaxan 1 cap PO BID 04/08/17 04/08/17 History [Preservision Areds 2 Softgel] guaiFENesin [Mucinex] 600 mg PO Q12H PRN 04/08/17 04/08/17 History Allergies Allergy/AdvReac Type Severity Reaction Status Date / Time No Known Allergies Allergy Verified 04/08/17 14:28 Physical Exam Vitals: Vital Signs Temp Pulse Pulse Resp BP BP BP 04/14/17 12:00 129 H 20 72/51 04/14/17 11:30 133 H 25 H 111/41 04/14/17 11:00 110 H 19 113/65 04/14/17 10:30 111 H 15 80/65 04/14/17 10:00 139 H 11 L 76/49 04/14/17 09:45 112 H 21 69/48 04/14/17 09:30 111 H 24 04/14/17 09:15 132 H 28 H 116/70 04/14/17 09:00 108 H 20 116/70 04/14/17 08:30 126 H 24 102/80 04/14/17 08:00 98.2 F 115 H 26 H 102/45 04/14/17 07:30 119 H 26 H 84/60 04/14/17 07:00 129 H 16 78/69 04/14/17 06:30 134 H 26 H 04/14/17 06:00 99 17 91/50 04/14/17 05:30 126 H 20 84/47 04/14/17 05:00 114 H 16 93/50 04/14/17 04:30 114 H 20 04/14/17 04:00 98.5 F 112 H 21 102/64 04/14/17 03:30 109 H 18 78/54 04/14/17 03:04 87 17 04/14/17 03:00 113 H 17 87/49 04/14/17 02:50 105 H 18 79/63 04/14/17 02:40 124 H 21 79/63 04/14/17 02:31 87 87/57 04/14/17 02:30 114 H 18 79/63 17 02:20 124 H 22 82/51 17 02:10 118 H 27 H 04/14/17 02:00 108 H 26 H 98/57 04/14/17 01:50 110 H 21 04/14/17 01:40 125 H 26 H 89/56 04/14/17 01:30 120 H 24 89/56 04/14/17 01:20 115 H 26 H 83/55 04/14/17 01:18 98.4 F 120 H 25 H 83/55 04/14/17 00:53 101 H 77/49 04/14/17 00:29 82/44 04/14/17 00:15 76/51 89/44 04/14/17 00:09 87/50 04/14/17 00:00 101 H 18 79/40 04/13/17 23:50 63 85/47 04/13/17 23:00 96.9 F L 101 H 18 92/52 04/13/17 20:00 97.3 F L 84 18 86/42 97/48 04/13/17 15:43 97 F L 88 18 116/55 04/13/17 15:21 98 Pulse Ox 04/14/17 12:00 97 04/14/17 11:30 98 04/14/17 11:00 96 04/14/17 10:30 98 04/14/17 10:00 99 04/14/17 09:45 99 04/14/17 09:30 97 04/14/17 09:15 82 L 04/14/17 09:00 95 04/14/17 08:30 93 L 04/14/17 08:00 95 04/14/17 07:30 92 L 04/14/17 07:00 98 04/14/17 06:30 97 04/14/17 06:00 96 04/14/17 05:30 96 04/14/17 05:00 96 04/14/17 04:30 95 04/14/17 04:00 96 04/14/17 03:30 93 L 04/14/17 03:04 04/14/17 03:00 94 L 04/14/17 02:50 95 04/14/17 02:40 96 04/14/17 02:31 97 04/14/17 02:30 96 04/14/17 02:20 95 04/14/17 02:10 79 L 04/14/17 02:00 96 04/14/17 01:50 95 04/14/17 01:40 94 L 04/14/17 01:30 95 04/14/17 01:20 96 04/14/17 01:18 95 04/14/17 00:53 04/14/17 00:29 04/14/17 00:15 04/14/17 00:09 04/14/17 00:00 04/13/17 23:50 04/13/17 23:00 97 04/13/17 20:00 97 04/13/17 15:43 97 04/13/17 15:21 Intake and Output 04/13/17 04/14/17 04/14/17 22:59 06:59 14:59 Intake Total 350 2800 2078.062 Output Total 225 135 Balance 350 2575 1943.062 Intake: IV 2800 2000 Cefepime 2 gm In Sodium 50 Chloride 0.9% 50 ml @ 100 mls/hr IVPB Q8H [facility] Rx#: [id number] Sodium Chloride 0.9% 1, 500 500 000 ml @ 125 mls/hr IV . Q8H [facility] Rx#:[id number] Sodium Chloride 0.9% 1, 500 000 ml @ 500 mls/hr IV . Q2H [facility] Rx#:[id number] Sodium Chloride 0.9% 1, 1000 1000 000 ml @ 999 mls/hr IV . Q1H1M [facility] Rx#:[id number] Sodium Chloride 0.9% 500 1000 ml @ 999 mls/hr IV .Q31M ONE Rx#:[id number] Vancomycin 1,500 mg In 250 Sodium Chloride 0.9% 250 ml @ 125 mls/hr IVPB ONCE ONE Rx#:[id number] Intake, IV Titration 78.062 Amount Norepinephrin 4 mg-0.9% 78.062 Ns Pmx 4 mg In 250 ml @ Titrate IV .Q0M [facility] Rx#: [id number] Oral 350 Output: Urine 225 135 Other: Voiding Method Toilet Indwelling Catheter Indwelling Catheter Urinal # Voids 1 1 # Bowel Movements 1 Weight 95.7 kg 95.7 kg Patient Weight 04/15/17 06:59 Weight 95.7 kg Physical Exam: Revealed an 86-year-old white male, looks pale, frail, generally weak, in mild distress. HEENT:[Neck is supple.] [No neck masses.] [No thyromegaly.] [No JVD.] Severe mucositis noted affecting lips, tongue, and oropharynx, there is desquamation noted on the lips, and also scattered through the oropharynx. Chest: [Clear throughout, no crackles, no rhonchi, no wheezes. Diminished breath sounds at the bases, especially at the left base.] Cardiac Exam: [Irregular irregular rhythm Normal S1 and S2, no S3 gallop, no murmur.] Abdomen: [Soft, nontender, no megaly, no rebound, no guarding, normal bowel sounds.] Extremities: [No clubbing, no edema, no cyanosis.] Neurological Exam: [No focal neurologic deficit.] Skin: Confluent reddish rash with superficial ulceration and cracking noted on both hands extending also in the forearm area bilaterally. Psychiatric: Normal mood, affect, and normal mental status examination. Lymphatics: No lymphadenopathy was appreciated. Results - Laboratory Findings CBC and BMP: 04/14/17 05:44 04/14/17 05:44 PT/INR, D-dimer PT 12.6 sec (9.0-12.0) H 04/08/17 13:30 INR 1.3 (<1.2) H 04/08/17 13:30 D-Dimer 1.16 mg/L FEU (<0.60) H 04/08/17 13:30 Abnormal lab findings: Abnormal Labs 04/08/17 04/08/17 04/08/17 13:30 13:30 13:30 WBC RBC Hgb 12.2 L Hct 38.1 L MCHC RDW 22.5 H Plt Count Neutrophils # (Manual) Lymphocytes # Lymphocytes # (Manual) Nucleated RBCs PT INR D-Dimer Sodium 136 L Chloride Carbon Dioxide 19 L BUN 59 H Creatinine 2.32 H Glucose 166 H POC Glucose (mg/dL) Plasma Lactic Acid Nic Calcium Phosphorus Magnesium AST Total Creatine Kinase 43 L Troponin I 0.045 H* Total Protein Albumin Urine Protein Amorphous Sediment 04/08/17 04/08/17 04/08/17 13:30 19:24 20:52 WBC RBC Hgb Hct MCHC RDW Plt Count Neutrophils # (Manual) Lymphocytes # Lymphocytes # (Manual) Nucleated RBCs PT 12.6 H INR 1.3 H D-Dimer 1.16 H Sodium Chloride Carbon Dioxide BUN Creatinine Glucose POC Glucose (mg/dL) 132 H Plasma Lactic Acid Nic Calcium Phosphorus Magnesium AST Total Creatine Kinase 49 L Troponin I 0.037 H* Total Protein Albumin Urine Protein Amorphous Sediment 04/09/17 04/09/17 04/09/17 00:46 05:36 05:36 WBC RBC 3.76 L Hgb 10.5 L Hct 33.4 L MCHC RDW 22.4 H Plt Count 139 L Neutrophils # (Manual) Lymphocytes # 0.7 L Lymphocytes # (Manual) Nucleated RBCs PT INR D-Dimer Sodium Chloride 111 H Carbon Dioxide 18 L BUN 51 H Creatinine 1.80 H Glucose POC Glucose (mg/dL) Plasma Lactic Acid Nic Calcium Phosphorus Magnesium AST Total Creatine Kinase Troponin I 0.041 H* Total Protein Albumin Urine Protein Amorphous Sediment 04/09/17 04/09/17 04/09/17 11:05 16:04 21:15 WBC RBC Hgb Hct MCHC RDW Plt Count Neutrophils # (Manual) Lymphocytes # Lymphocytes # (Manual) Nucleated RBCs PT INR D-Dimer Sodium Chloride Carbon Dioxide BUN Creatinine Glucose POC Glucose (mg/dL) 168 H 283 H 290 H Plasma Lactic Acid Nic Calcium Phosphorus Magnesium AST Total Creatine Kinase Troponin I Total Protein Albumin Urine Protein Amorphous Sediment 04/10/17 04/10/17 04/10/17 05:23 05:23 05:43 WBC RBC 3.78 L Hgb 10.6 L Hct 32.8 L MCHC RDW 21.9 H Plt Count 145 L Neutrophils # (Manual) Lymphocytes # 0.7 L Lymphocytes # (Manual) Nucleated RBCs PT INR D-Dimer Sodium Chloride 110 H Carbon Dioxide 16 L BUN 47 H Creatinine 1.80 H Glucose 186 H POC Glucose (mg/dL) 181 H Plasma Lactic Acid Nic Calcium Phosphorus Magnesium AST Total Creatine Kinase Troponin I Total Protein 5.8 L Albumin 3.0 L Urine Protein Amorphous Sediment 04/10/17 04/10/17 04/10/17 10:00 11:21 16:23 WBC RBC Hgb Hct MCHC RDW Plt Count Neutrophils # (Manual) Lymphocytes # Lymphocytes # (Manual) Nucleated RBCs PT INR D-Dimer Sodium Chloride Carbon Dioxide BUN Creatinine Glucose POC Glucose (mg/dL) 207 H 193 H Plasma Lactic Acid Nic Calcium Phosphorus Magnesium AST Total Creatine Kinase Troponin I Total Protein Albumin Urine Protein 1+ H Amorphous Sediment 04/10/17 04/11/17 04/11/17 20:53 05:52 11:39 WBC RBC Hgb Hct MCHC RDW Plt Count Neutrophils # (Manual) Lymphocytes # Lymphocytes # (Manual) Nucleated RBCs PT INR D-Dimer Sodium Chloride Carbon Dioxide BUN Creatinine Glucose POC Glucose (mg/dL) 266 H 139 H 220 H Plasma Lactic Acid Nic Calcium Phosphorus Magnesium AST Total Creatine Kinase Troponin I Total Protein Albumin Urine Protein Amorphous Sediment 04/11/17 04/11/17 04/12/17 17:05 20:57 05:25 WBC 2.6 L RBC 3.80 L Hgb 10.8 L Hct 33.5 L MCHC RDW 20.1 H Plt Count Neutrophils # (Manual) Lymphocytes # 0.4 L Lymphocytes # (Manual) Nucleated RBCs PT INR D-Dimer Sodium Chloride Carbon Dioxide BUN Creatinine Glucose POC Glucose (mg/dL) 174 H 155 H Plasma Lactic Acid Nic Calcium Phosphorus Magnesium AST Total Creatine Kinase Troponin I Total Protein Albumin Urine Protein Amorphous Sediment 04/12/17 04/12/17 04/12/17 05:25 06:22 11:30 WBC RBC Hgb Hct MCHC RDW Plt Count Neutrophils # (Manual) Lymphocytes # Lymphocytes # (Manual) Nucleated RBCs PT INR D-Dimer Sodium 136 L Chloride 108 H Carbon Dioxide 18 L BUN 61 H Creatinine 2.40 H Glucose 167 H POC Glucose (mg/dL) 174 H 151 H Plasma Lactic Acid Nic Calcium Phosphorus Magnesium AST Total Creatine Kinase Troponin I Total Protein 5.1 L Albumin 2.7 L Urine Protein Amorphous Sediment 04/12/17 04/12/17 04/13/17 16:44 21:28 05:54 WBC RBC Hgb Hct MCHC RDW Plt Count Neutrophils # (Manual) Lymphocytes # Lymphocytes # (Manual) Nucleated RBCs PT INR D-Dimer Sodium Chloride Carbon Dioxide BUN Creatinine Glucose POC Glucose (mg/dL) 170 H 222 H 189 H Plasma Lactic Acid Nic Calcium Phosphorus Magnesium AST Total Creatine Kinase Troponin I Total Protein Albumin Urine Protein Amorphous Sediment 04/13/17 04/13/17 04/13/17 09:30 11:38 16:20 WBC RBC Hgb Hct MCHC RDW Plt Count Neutrophils # (Manual) Lymphocytes # Lymphocytes # (Manual) Nucleated RBCs PT INR D-Dimer Sodium Chloride 113 H Carbon Dioxide 14 L BUN 78 H Creatinine 2.68 H Glucose 185 H POC Glucose (mg/dL) 184 H 177 H Plasma Lactic Acid Nic Calcium Phosphorus Magnesium AST 14 L Total Creatine Kinase Troponin I Total Protein 5.7 L Albumin 3.0 L Urine Protein Amorphous Sediment 04/13/17 04/13/17 04/13/17 20:45 23:23 23:23 WBC 1.5 L* RBC Hgb Hct MCHC RDW 20.4 H Plt Count Neutrophils # (Manual) 0.70 L Lymphocytes # Lymphocytes # (Manual) 0.50 L Nucleated RBCs 2 H PT INR D-Dimer Sodium Chloride 114 H Carbon Dioxide 11 L BUN 92 H* Creatinine 3.00 H Glucose 181 H POC Glucose (mg/dL) 216 H Plasma Lactic Acid Nic Calcium 8.3 L Phosphorus Magnesium 2.6 H AST Total Creatine Kinase Troponin I Total Protein Albumin Urine Protein Amorphous Sediment 04/14/17 04/14/17 04/14/17 01:13 01:45 03:00 WBC RBC Hgb Hct MCHC RDW Plt Count Neutrophils # (Manual) Lymphocytes # Lymphocytes # (Manual) Nucleated RBCs PT INR D-Dimer Sodium Chloride Carbon Dioxide BUN Creatinine Glucose POC Glucose (mg/dL) 150 H Plasma Lactic Acid Nic 3.0 H* Calcium Phosphorus Magnesium AST Total Creatine Kinase Troponin I Total Protein Albumin Urine Protein 1+ H Amorphous Sediment Rare H 04/14/17 04/14/17 04/14/17 05:44 05:44 05:44 WBC 0.9 L* RBC Hgb 12.2 L Hct MCHC 30.8 L RDW 20.0 H Plt Count 126 L Neutrophils # (Manual) Lymphocytes # Lymphocytes # (Manual) Nucleated RBCs PT INR D-Dimer Sodium Chloride 115 H Carbon Dioxide 10 L* BUN 90 H* Creatinine 2.90 H Glucose 150 H POC Glucose (mg/dL) Plasma Lactic Acid Nic 2.8 H* Calcium 7.6 L Phosphorus 4.7 H Magnesium 2.4 H AST 12 L Total Creatine Kinase Troponin I Total Protein 4.6 L Albumin 2.2 L Urine Protein Amorphous Sediment 04/14/17 04/14/17 04/14/17 07:51 10:07 12:30 WBC RBC Hgb Hct MCHC RDW Plt Count Neutrophils # (Manual) Lymphocytes # Lymphocytes # (Manual) Nucleated RBCs PT INR D-Dimer Sodium Chloride Carbon Dioxide BUN Creatinine Glucose POC Glucose (mg/dL) 189 H 146 H Plasma Lactic Acid Nic 3.6 H* Calcium Phosphorus Magnesium AST Total Creatine Kinase Troponin I Total Protein Albumin Urine Protein Amorphous Sediment - Diagnostic Findings Chest x-ray: image reviewed (Left lower lobe atelectasis and elevation of left hemidiaphragm noted, small left pleural effusion was noted. No evidence of pneumonia.) Assessment and Plan Assessment: Impression: 1 acute neutropenic sepsis and septic shock is strongly suspected based on the clinical history and based on the fact that the patient is hypotensive, required multiple fluid boluses, and required norepinephrine. 2 acute dehydration which is also another contributing factor to hypotension, however the patient received significant fluid boluses and his blood pressure remains low. 3 acute mucositis secondary to chemotherapy 4 acute rash secondary to chemotherapy 5 history of colon cancer 6 history of chronic atrial fibrillation 7 left lower lobe atelectasis and left pleural effusion, small, not large enough to consider diagnostic thoracentesis at this point. 8 acute kidney injury secondary to sepsis 9 history of multiple comorbidities including diabetes, GERD, hypertension, hyperlipidemia, history of previous decortication of the left lung, and chronically elevated left hemidiaphragm. History of hyperthyroidism requiring thyroidectomy, history of hiatal hernia, history of coronary artery disease previous CABG. Recommendation: Reviewed all the patient's meds, treatment plan, patient will be placed on more IV fluids, sodium bicarb drip will be initiated, he was being evaluated by nephrology regarding his acute kidney injury secondary to sepsis, antibiotics seem to be appropriate for now, continue norepinephrine titrate to a mean of 65, discussed condition with him, son, and [id number]. Patient is full code, and we will follow very closely. If his mucositis does not improve much, may have to consider placement of a nasogastric tube or a Dobbhoff tube for nutritional support. We'll continue to follow. Patient is critically ill, family is aware of this. Time with Patient: Greater than 30
[2017-04-14] MEDS ORDERED: SODIUM CHLORIDE 0.9% 1,000 ML IV SCH ×2 (15:15→15:30)
[2017-04-14] MEDS: metroNIDAZOLE 500 MG TAB PO SCH ×2 (15:49→21:46)
[2017-04-14 17:28] LABS: Glucose,Whole Blood 264 mg/dL (75-99)
[2017-04-14] MEDS ORDERED: METOPROLOL TARTRATE 25 MG TAB PO ONE (17:30)
[2017-04-14 18:32] LABS: Potassium 4.6 mmol/L (3.5-5.1)
[2017-04-14] MEDS: TERBUTALINE FOR EXTRAVASATION 1 MG/ML VIAL SQ STA ×2 (20:02→21:40)
[2017-04-14] MEDS: ATORVASTATIN 20 MG TAB PO SCH (21:41)
[2017-04-14] MEDS: METOPROLOL TARTRATE 25 MG TAB PO SCH (21:43)
[2017-04-15] MEDS: AMMONIUM LACTATE 12% CREAM 140 GM TUBE TOPICAL SCH ×2 (01:44→08:56)
[2017-04-15] MEDS ORDERED: CEFEPIME 2 GM in SODIUM CHLORIDE 0.9% 50 ML IVPB SCH ×2 (02:00→14:00)
[2017-04-15] MEDS ORDERED: VANCOMYCIN 1,500 MG in SODIUM CHLORIDE 0.9% 250 ML IVPB ONE (05:00)
[2017-04-15] MEDS ORDERED: LORazepam 2 MG/ML INJ IV PRN (06:51)
--- NOTE | 2017-04-15 07:05 | XR ---
EXAMINATION TYPE: XR chest 1V DATE OF EXAM: 04/15/2017 HISTORY: recurrent pleural effusion. REFERENCE: Previous study dated 04/14/2017. FINDINGS: The entire lung is not included on this study. The heart is enlarged. There is left basilar airspace disease. The left CP angle is obscured. IMPRESSION: 1. SUBOPTIMAL STUDY. 2. CARDIOMEGALY. 3. LEFT BASILAR AIRSPACE DISEASE. 4. I CANNOT EXCLUDE A SMALL, LEFT-SIDED EFFUSION.
[2017-04-15] MEDS: LEVOTHYROXINE 75 MCG TAB PO SCH (07:34)
[2017-04-15] MEDS: DEXTROSE 5% IN WATER 1,000 ML with SODIUM BICARB (1 MEQ/ML) 150 ML IV SCH (07:36)
--- NOTE | 2017-04-15 08:07 | CONS ---
CONSULTATION REASON FOR ADMISSION: Acute kidney injury with severe lactic acidosis. Thank you, Dr. Murrell, for asking me to evaluate the patient for underlying renal insufficiency along with electrolyte abnormalities. The patient unable to give any history at present. Most of the history from documentation. He has seen in ICU 614. He is an 86-year-old male with recent diagnosis of right invasive adenocarcinoma of the colon in December 2016. He is status post colectomy January 02, 2017 along with partial omentectomy followed by chemo with Xeloda. First treatment given March 06, 2017. The patient was just got the 2nd dose. The patient from last few days developed severe rash and oral ulcers and has not been able to eat or drink much. He has been feeling very weak for which he presented to the hospital. Nephro consultation was asked for worsening renal function along with electrolyte abnormalities. We did attempted bolusing patient's last night. However, he continues to remain hypotensive, for which he was transferred to the ICU. He is currently being treated for possible sepsis. Currently on broad-spectrum antibiotics. At present, he is in ICU, resting comfortably, severe acidosis. No recent blood gases. He has gotten almost 4 amps of sodium bicarb since last night out of which 2 were done this joint supervisor. Cultures so far has been negative. Chest x-ray at admission, no infiltrate. Abdominal x-rays, nonspecific pattern. No acute pathology. The patient so far has put out only about 500-600 mL of urine. He has got about 4 L of IV fluids. Blood pressure is still running low while on levo. ALLERGIES: No known drug allergies. HOME MEDICATIONS: Rocaltrol, Lanoxin, Lasix, Synthroid, Cozaar, Lopressor, potassium, Zocor, Glucotrol, Xeloda, iron sulfate, omeprazole, Mucinex. PAST MEDICAL HISTORY: 1. Atrial fibrillation. 2. Colon cancer. 3. Type 2 diabetes. 4. Gastroesophageal reflux disease. 5. Hyperlipidemia. 6. CKD with baseline creatinine lately 1.2-1.5. PAST SURGICAL HISTORY: 1. Cholecystectomy. 2. CABG. 3. Colectomy with partial omentectomy. 4. Thyroidectomy. 5. VATS procedure for left effusion. SOCIAL HISTORY: The patient stays home with the family. FAMILY HISTORY: No significant family history of kidney problems. REVIEW OF SYSTEMS: CONSTITUTIONAL: Decreased appetite, decreased weight. No subjective fever or chills. Review of other systems active pertinent findings as per history of present illness. VITAL SIGNS: Blood pressure 72/51, pulse rate 129, respiratory rate 20 per minute, sats 97 on 3 L. GENERAL APPEARANCE: Patient is lying comfortably in the bed with head raised, no acute distress in spite of severe acidosis. LUNGS: Some decreased breath sounds bilaterally. HEENT: Oral mucous positive stomatitis with oral ulcers. ABDOMEN: Soft, nontender. EXTREMITIES: Positive pulses, no edema. GENITOURINARY: No scrotal edema. Viveros catheter in place. NEURO: AO x3. No gross focal motor sensory deficits. LABS: Hemoglobin 12.2, WBC 0.9. Lactic acid of 3.6. Sodium 139, potassium 4.3, chloride 115, CO2 10, BUN 90, creatinine 2.9. At admission, creatinine was 2.3, improved to 1.8 and started increasing back. IMPRESSION: 1. Oliguric acute kidney injury secondary to acute tubular necrosis, likely in the setting of severe hypotension and ongoing sepsis concern. 2. Severe metabolic acidosis in the setting of acute kidney injury along with lactic acidosis. 3. Lactic acidosis from hypoperfusion. 4. History of colon and invasive adenocarcinoma of right colon, status post colectomy and partial omentectomy in December 2006, on oral chemo Xeloda. 5. Febrile neutropenia. 6. Septic shock. RECOMMENDATIONS: 1. Patient's overall prognosis is guarded at present. Agree with close monitoring in the ICU. 2. Recommend switching IV fluids to IV bicarb drip at 100 mL/hour. 3. To check ABGs. Patient high risk for intubation. 4. Recommend reverse isolation precautions given febrile neutropenia. 5. Recommend Infectious Disease consultation. 6. Continue to monitor blood cultures. 7. Case discussed with the ICU team, a nursing staff to repeat BMP later this evening and to call me for any fluid related to nephrology issues. 8. While patient on Levophed, stop Midodrine. The patient might need a touch of vasopressin to help keep the mean systolic blood pressure more than 65. 9. Thank you, Dr. Murrell, for allowing me to participate in taking care of this patient. We will follow the patient with you. MMODL / IJN: [id number] /
[2017-04-15] MEDS ORDERED: MORPHINE SULFATE 5 MG/ML SYRINGE IVP ONE (08:35)
[2017-04-15] MEDS ORDERED: MORPHINE SULFATE 5 MG/ML SYRINGE IV PRN (08:35)
[2017-04-15] MEDS ORDERED: ATROPINE OPHTH SOLN 1% 5ML BTL SUBLINGUAL PRN (08:35)
[2017-04-15] MEDS ORDERED: SCOPOLAMINE 1.5MG/72HR PATCH TRANSDERM PRN (08:35)
[2017-04-15] MEDS ORDERED: MORPHINE SULFATE (100 MG/2 ML) 100 MG in SODIUM CHLORIDE 0.9% 100 ML IV SCH (08:45)
[2017-04-15] MEDS: INSULIN ASPART 100 UNIT/ML 1 ML 10 ML VIAL SQ SCH ×2 (08:56→11:31)
[2017-04-15] MEDS: APIXABAN 2.5 MG TABLET PO SCH (08:56)
[2017-04-15] MEDS: glipiZIDE 5 MG TAB PO SCH (08:56)
[2017-04-15] MEDS: CALCITRIOL 0.25 MCG CAP PO SCH (08:57)
[2017-04-15] MEDS: DIPHENOX-ATROP 2.5-0.025 MG 1 EACH TAB PO SCH (08:57)
[2017-04-15] MEDS: ARTIFICIAL TEARS-HYPROMELLOSE DROPS 15 ML BTL BOTH EYES SCH (08:57)
[2017-04-15] MEDS: DIGOXIN 125 MCG TAB PO SCH (08:57)
[2017-04-15] MEDS ORDERED: FILGRASTIM-SNDZ 480 MCG/0.8 ML SYRINGE SQ SCH (09:00)
[2017-04-15 09:08] VITALS: BP 82/54; TEMP 99.3
[2017-04-15] MEDS: metroNIDAZOLE 500 MG TAB PO SCH (09:08)
[2017-04-15] MEDS: PANTOPRAZOLE 40 MG TABLET PO SCH (09:08)
[2017-04-15] MEDS: methylPREDNISolone SOD SUCCI 40 MG/ML 1 ML VIAL IV SCH (09:08)
[2017-04-15] MEDS: METOPROLOL TARTRATE 25 MG TAB PO SCH (09:08)
[2017-04-15] MEDS: NYSTATIN 100,000 UNIT/ML SUSP 500,000 UNIT/5 ML CUP PO SCH ×2 (09:08→13:02)
[2017-04-15] MEDS: MAG HYDROX/AL HYDROX/SIMETH 30 ML, diphenhydrAMINE ELIXIR 75 MG, LIDOCAINE VISCOUS 30 ML PO SCH ×6 (09:09→13:02)
[2017-04-15 11:17] VITALS: PULSE 172; RESP 11
[2017-04-15] MEDS: VIT A,C & E-LUTEIN-MINERALS 1 EACH TAB PO SCH (11:31)
[2017-04-15] MEDS: FERROUS SULFATE 325 MG TAB PO SCH (11:31)
--- NOTE | 2017-04-15 13:13 | P.PN ---
Subjective Progress Note Date: 04/15/17 Principal diagnosis: Acute neutropenic sepsis and septic shock. This is an 86-year-old white male with history of recently diagnosed colon cancer when the patient presented with new obstructing lesion involving the right colon. Patient had right colectomy on , and he underwent partial omentectomy. 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 Separate tumor deposit was also noted in the serosa. Omentum was benign. His postoperative course was relatively uneventful, patient was started on chemotherapy on 03/06/[address] Berrios. Adjuvant Xeloda was recommended. Patient tolerated cycle one quite well, he started cycle 2 and he was supposed to complete his 2 weeks within the next couple of days. However over the last few days, patient developed progressive severe and painful mouth sores, unable to eat, he also developed frequent loose bowel movements and abdominal cramping. Admitted through the ER on 04/08/2017, with the impression of severe mucositis secondary to chemotherapy, dehydration, and skin toxicity from Xeloda. Last night, the patient developed hypotension, resuscitated with fluids, transferred to the ICU, noted to have a significant drop in his WBC count, elevation of his creatinine, and the patient required starting norepinephrine. Patient was started on broad-spectrum antibiotics as well as filgrastim for presumptive neutropenic sepsis and possible septic shock. Patient is now on cefepime and vancomycin, he is also on 6 g of norepinephrine , multiple fluid boluses were given, sodium bicarb was also started, initial consult was given to Dr. Dowd, however he is not available, and I am not covering him on consultation. Dr. Dowd requested to cover him, however she is not loss prevention investigator, and there is no field service analyst available to see the patient except myself. Hence the consult was canceled to Dr. Dowd, and it was given to me. Again I'm not covering him and I was never asked by him to cover his patients. I reviewed the chart, reviewed the treatment plan and all the medications, discussed his condition with the nurse taking care of the patient, discussed his condition with him and with his son and [id number] at bedside. Also discussed the issue of CODE STATUS, patient is presently full code. Patient was reevaluated today on 04/15/2017, I saw him in the ICU, and apparently since last night, the patient has been refusing any treatment. He was documented to be alert oriented, and he remains alert and oriented, he is not allowing any blood draws, not allowing any medications to be given, and he is basically wishing to go in peace and comfort. Could not even convince the patient to have IV fluid through a PICC line which is already present. Patient apparently had some levo fed infiltration last night, and he refused Regitine treatment. He is also refusing any blood draws to be done and x-rays to be done. I tried to convince him, patient is extremely serious about not having any treatment, hence he is agreeable to go ahead with comfort care measures. His condition was discussed with his primary care physician, and we will try to move him today to a medical floor/oncology, and start administering comfort care measures only. Objective - Vital Signs Vital signs: Vital Signs Temp 99.3 F 04/15/17 08:00 Pulse 172 H 04/15/17 10:00 Resp 11 L 04/15/17 10:00 BP 82/54 04/15/17 10:00 Pulse Ox 99 04/15/17 10:00 Intake & Output 04/14/17 04/15/17 04/15/17 18:59 06:59 18:59 Intake Total 3183.040 1431.96 125.425 Output Total 315 1615 30 Balance 2868.040 -183.04 95.425 Weight 95.7 kg 96.7 kg Intake: IV 2250 1000 125 Dextrose 5% in Water 1, 500 125 000 ml @ 125 mls/hr IV . Q9H12M SCARLET with Sodium Bicarb (1 Meq/ml) 150 ml Rx#:[id number] Dextrose 5% in Water 1, 100 000 ml @ 50 mls/hr IV . Q23H SCARLET with Sodium Bicarb (1 Meq/ml) 150 ml Rx#:[id number] Sodium Chloride 0.9% 1, 500 250 000 ml @ 125 mls/hr IV . Q8H SCARLET Rx#:[id number] Sodium Chloride 0.9% 1, 750 0 000 ml @ 500 mls/hr IV . Q2H SCARLET Rx#:[id number] Sodium Chloride 0.9% 1, 1000 0 000 ml @ 999 mls/hr IV . Q1H1M SACRLET Rx#:[id number] Vancomycin 1,500 mg In 150 Sodium Chloride 0.9% 250 ml @ 125 mls/hr IVPB ONCE ONE Rx#:[id number] Intake, IV Titration 933.040 191.96 0.425 Amount Dextrose 5% in Water 1, 750 125 000 ml @ 125 mls/hr IV . Q9H12M SCARLET with Sodium Bicarb (1 Meq/ml) 150 ml Rx#:[id number] Morphine Sulfate (100 mg/ 0.425 2 ml) 100 mg In Sodium Chloride 0.9% 100 ml @ 1 MG/HR 1.02 mls/hr IV . Q24H SCARLET Rx#:[id number] Norepinephrin 4 mg-0.9% 183.040 66.96 Ns Pmx 4 mg In 250 ml @ Titrate IV .Q0M SCARLET Rx#: [id number] Oral 240 Output: Urine 315 415 30 Stool 1200 Other: Voiding Method Indwelling Catheter Indwelling Catheter # Voids 1 # Bowel Movements 1 - Exam Physical Exam: Revealed an 86-year-old white male, looks pale, frail, generally weak, in mild distress. HEENT:[Neck is supple.] [No neck masses.] [No thyromegaly.] [No JVD.] Severe mucositis noted affecting lips, tongue, and oropharynx, there is desquamation noted on the lips, and also scattered through the oropharynx. Chest: [Clear throughout, no crackles, no rhonchi, no wheezes. Diminished breath sounds at the bases, especially at the left base.] Cardiac Exam: [Irregular irregular rhythm Normal S1 and S2, no S3 gallop, no murmur.] Abdomen: [Soft, nontender, no megaly, no rebound, no guarding, normal bowel sounds.] Extremities: [No clubbing, no edema, no cyanosis.] Neurological Exam: [No focal neurologic deficit.] Skin: Confluent reddish rash with superficial ulceration and cracking noted on both hands extending also in the forearm area bilaterally. Psychiatric: Normal mood, affect, and normal mental status examination. Lymphatics: No lymphadenopathy was appreciated. - Labs CBC & Chem 7: 04/14/17 05:44 04/14/17 18:09 Labs: Abnormal Lab Results - Last 24 Hours (Table) 04/14/17 04/14/17 Range/Units 17:25 18:09 Chloride 118 H (98-107) mmol/L Carbon Dioxide 12 L (22-30) mmol/L BUN 92 H* (9-20) mg/dL Creatinine 2.94 H (0.66-1.25) mg/dL Glucose 257 H (74-99) mg/dL POC Glucose (mg/dL) 264 H (75-99) mg/dL Calcium 7.0 L (8.4-10.2) mg/dL Microbiology - Last 24 Hours (Table) 04/14/17 01:45 Blood Culture - Preliminary Blood No Growth after 24 hours 04/08/17 13:30 Blood Culture - Final Blood No Growth after 144 hours 04/14/17 03:00 Urine Culture - Preliminary Urine,Catheterized Assessment and Plan Assessment: Impression: 1 acute neutropenic sepsis and septic shock is strongly suspected based on the clinical history and based on the fact that the patient is hypotensive, required multiple fluid boluses, and required norepinephrine. 2 acute dehydration which is also another contributing factor to hypotension, however the patient received significant fluid boluses and his blood pressure remains low. 3 acute mucositis secondary to chemotherapy 4 acute rash secondary to chemotherapy 5 history of colon cancer 6 history of chronic atrial fibrillation 7 left lower lobe atelectasis and left pleural effusion, small, not large enough to consider diagnostic thoracentesis at this point. 8 acute kidney injury secondary to sepsis 9 history of multiple comorbidities including diabetes, GERD, hypertension, hyperlipidemia, history of previous decortication of the left lung, and chronically elevated left hemidiaphragm. History of hyperthyroidism requiring thyroidectomy, history of hiatal hernia, history of coronary artery disease previous CABG. Recommendation: Considering the patient is refusing any treatment measures, his family is well aware of the situation, they were notified by the nurses at the midnight shift. Patient will be made comfort care, and we'll transferred down to oncology. We'll follow as needed. Time with Patient: Less than 30
--- NOTE | 2017-04-15 15:19 | CONS ---
CONSULTATION DATE OF SERVICE: 04/14/2017 REASON FOR CONSULTATION: Sepsis. HISTORY OF PRESENT ILLNESS: The patient is an 86-year-old male with recent diagnosis of invasive adenocarcinoma on the bases of colonoscopy in December of 2016 for which the patient has been started on the oral Xeloda which the patient started taking in the middle of February 2017. Apparently the patient did well on the 1st cycle however when the 2nd cycle started within 2-3 days the had suddenly painful severe mouth sore making it difficult to eat. The patient does have significant diarrhea and progressive worsening of rash felt to be related to chemotherapy for which the patient has been admitted to this facility on the March. The patient has been managed symptomatically for his underlying rash and oral mucositis. However, last night the patient become less responsive. He become hypotensive with a systolic down to 70s at one point. The patient has been assisted with fluid and subsequent transferred to the ICU where the patient is currently requiring about 6 mics of Levophed. No fever was noted. However, the patient noticed to have drop in his same white count with a white count of 0.9. The patient has been started on the vancomycin as well as cefepime and ID was consulted for further recommendation regarding antibiotic therapy. Most of the information has been obtained from prior review of the chart and talking to the nursing staff as the patient is currently lethargic and is unable to provide any reliable history. REVIEW OF SYSTEMS: Could not be reliably obtained though the positive points have been mentioned in HPI. PAST MEDICAL HISTORY: Significant for recent diagnosis of invasive adenocarcinoma, diabetes mellitus, hypertension, hyperlipidemia, gastroesophageal reflux disease, pneumonia, hypothyroidism, atrial fibrillation. PAST SURGICAL HISTORY: Cholecystectomy, coronary bypass grafting, heart catheterization, thyroidectomy , right colectomy, ventral hernia repair, right knee arthroscopy. SOCIAL HISTORY: Remote history of smoking. No drinking or any drug use. FAMILY HISTORY: Father at age of 102. No major illnesses. Mother in her 90's. ALLERGIES: No known drug allergies. MEDICATION: Medications include the patient is currently on Tylenol, some cold solution, Eliquis, Lipitor, Rocaltrol, cefepime 2 g daily, Lanoxin, Lomotil, iron sulfate, filgrastim, Mucinex, Dilaudid, NovoLog, Synthroid, melatonin, Solu-Medrol, Lopressor, vancomycin pharmacy to dose, Narcan, Levophed, Nystatin swish and swallow. EXAMINATION: Blood pressure is 125/54 with a pulse of 145, temperature of 98, he is 96% on 3 L nasal cannula. GENERAL DESCRIPTION: An elderly male lying in bed in no distress. No tachypnea or accessory muscle of respiration use. HEENT: Slight pallor. No scleral icterus. Oral mucosa is dry NECK: Trachea central, no thyromegaly. LUNGS: Unlabored breathing with decreased breath sounds in the bases. No wheeze or crackle. HEART: S1, S2. Regular rate. ABDOMEN: Soft. He has been tender left lower quardant area. No guarding or rigidity. EXTREMITIES: Trace edema feet. SKIN: No rash or mass palpable. NEUROLOGIC: Lethargic, orientation could not be determined. LABS: Hemoglobin is 12.2 with a white count of 0.9, BUN of 92, creatinine is 2.4, white count has been normal. Urine times 2 has been negative. C. diff was negative. The patient did have a chest x-ray with cardiomegaly, left base airspace disease. The abdominal x- ray was nonspecific bowel gas pattern. DIAGNOSTIC IMPRESSION AND PLAN: Patient with sepsis in the patient who did have hypotension, tachycardia, and leukopenia with the the source questionably significant dehydration from his mucositis versus a component of left lobe pneumonia or abdominal source as the patient was noticed to have tenderness on clinical examination. The patient did have diarrhea and stool for C diff came back negative. His urine is negative. PLAN: 1. Blood cultures x2. 2. Will try to obtain sputum for Gram stain culture and sensitivity. 3. Patient will continue broad spectrum antibiotic in the form of cefepime and vancomycin while watching his kidney function closely to prevent any nephrotoxicity 4. Once his clinical condition improves and if the abdominal pain or tenderness persist, we will recommend obtaining a CT abdominal pelvis with oral contrast. 5. Depending upon his clinical response as well as cultures will adjust medications further if needed. Thank you for this consultation, will follow the patient along with you. MMODL / IJN: [id number] / MTDD
--- NOTE | 2017-05-12 16:23 | DS ---
DISCHARGE SUMMARY MEDICATIONS: Glucotrol 5 mg b.i.d., Zocor 40 mg daily, potassium chloride 20 mEq daily, Lopressor 50 b.i.d., Cozaar 50 q.a.m., Synthroid 150 mcg q.a.m., Lasix 40 mg daily. Digoxin 125 mcg daily. Rocaltrol 0.25 mcg daily, Eliquis 2.5 b.i.d. ferrous sulfate 325 b.i.d., multivitamins b.i.d., polyethylene glycol 17 mg daily, omeprazole 20 b.i.d., Artificial Tears daily, Xeloda 2500 mg b.i.d., ammonium lactate cream b.i.d., Mucinex 600 q.12 hours p.r.n. Patient was admitted on April 08, discharged 04/15/2017. Came in with acute neutropenic sepsis and septic shock. Admitted for multiple days in ICU. He was found have a new obstructing lesion in the right colon. He has invasive adenocarcinoma of the colon. He had chemotherapy, became very severe , stomatitis, multiple severe painful mouth sores, unable to the eat or drink. He had acute on chronic renal disease, hypotension due to neutropenic sepsis, status post chemotherapy. Patient was admitted to the ICU for multiple days. He did not improve. Family decided to make the patient comfort care at which time he was sent to another floor. Otherwise he was comfort care treatment after failing medications by line tender, retail greeting card merchandiser, Infectious Disease and Oncology. MMTAINAL / IJN: [id number] /
== END 2017-04-15 13:51 | disposition hospice, inpatient (51) | DRG 157 ==
LOC: EC 12:07 → 6SEL 15:42 → 6ICU 04-14 01:17 → 4MS4W 04-15 11:01
PROVIDERS: ADMIT Family Medicine; ATTEND Family Medicine
DX: K12.31 Oral mucositis (ulcerative) due to antineoplastic therapy (principal); A41.9 Sepsis, unspecified organism; R65.21 Severe sepsis with septic shock; N17.0 Acute kidney failure with tubular necrosis; J90 Pleural effusion, not elsewhere classified; E87.2 Acidosis; C18.9 Malignant neoplasm of colon, unspecified; I48.1 Persistent atrial fibrillation; E11.22 Type 2 diabetes mellitus with diabetic chronic kidney disease; I48.2 Chronic atrial fibrillation; E86.0 Dehydration; D70.3 Neutropenia due to infection; E11.42 Type 2 diabetes mellitus with diabetic polyneuropathy; E05.90 Thyrotoxicosis, unspecified without thyrotoxic crisis or storm; I12.9 Hypertensive chronic kidney disease with stage 1 through stage 4 chronic kidney disease, or unspecified chronic kidney disease; I25.10 Atherosclerotic heart disease of native coronary artery without angina pectoris; K21.9 Gastro-esophageal reflux disease without esophagitis; N18.9 Chronic kidney disease, unspecified; E78.5 Hyperlipidemia, unspecified; K52.9 Noninfective gastroenteritis and colitis, unspecified; E89.0 Postprocedural hypothyroidism; R21 Rash and other nonspecific skin eruption; K12.1 Other forms of stomatitis; L30.9 Dermatitis, unspecified; R50.81 Fever presenting with conditions classified elsewhere; S50.12XA Contusion of left forearm, initial encounter; S50.11XA Contusion of right forearm, initial encounter; T45.1X5A Adverse effect of antineoplastic and immunosuppressive drugs, initial encounter; Z51.5 Encounter for palliative care; Z79.899 Other long term (current) drug therapy; Z87.19 Personal history of other diseases of the digestive system; Z86.73 Personal history of transient ischemic attack (TIA), and cerebral infarction without residual deficits; Z90.49 Acquired absence of other specified parts of digestive tract; Z90.89 Acquired absence of other organs; Z95.1 Presence of aortocoronary bypass graft; Z85.828 Personal history of other malignant neoplasm of skin; Z87.891 Personal history of nicotine dependence; Z79.01 Long term (current) use of anticoagulants; Z87.01 Personal history of pneumonia (recurrent); Z79.84 Long term (current) use of oral hypoglycemic drugs
CPT/HCPCS: 36415; 71010; 71020; 74000; 74020; 80048; 80053; 80162; 81001; 82150; 82550; 82553; 83605; 83690; 83735; 84100; 84484; 85025; 85379; 85610; 85730; 87040; 87086; 87324; 87493; 93005; 93306; 93970; 96361; 96374; 96375; 99285